=== PATIENT | female | born 1975 | race Caucasian/White ===

== ENCOUNTER 2016-08-09 07:36 | Outpatient (RCR) | payer OTHER ==
--- OUTSIDE RECORDS SUMMARY | 2016-08-06 14:04 | XMS REPORT | Continuity of Care Document ---
Author Author [facility] Organization [facility] Address Unknown Phone Unavailable Care Team Providers Care Seat Covers Trimmer Name Role Phone ALOK NAM MD PCP Insurance Providers Payer Name Policy Number Subscriber Name Relationship [facility] [id number] Eric Aguilera J 01 Advance Directives Directive Response Recorded Date/Time Advance Directives No 11/04/14 12:45pm Health Care Power of Qual Research Manager No 11/04/14 12:45pm Organ Donor Yes 11/04/14 12:45pm Resuscitation Status Full Code 11/04/14 12:45pm Problems Medical Problems Problem Onset Date Status Epigastric abdominal pain Unknown Active Gastric ulcer Unknown Active Epigastric abdominal pain Unknown Active Medications Medication Dose Route Sig Days/Qty Instructions Order Date Discontinued Date Status Ciprofloxacin 1 Tab PO TWICE A DAY 20 Qty FOR INFECTION 03/04/11 Discontinued Metronidazole 1 Each PO THREE TIMES A DAY 30 Qty 03/04/11 07/28/11 Discontinued Acetaminophen/Hydrocodone Bitart (Lorcet 5/325MG) 1 - 2 Tab PO EVERY 6 HOURS 10 Qty FOR PAIN 03/04/11 07/28/11 Discontinued Promethazine HCl 1 Supp IN FOUR TIMES DAILY PRN 5 Qty 03/04/11 Discontinued Ibuprofen 1,000 Mg PO DAILY 07/28/11 11/04/14 Discontinued Amoxicillin/Clavulanate Potassium 1 Tab PO TWICE A DAY 5 Days 10/29/11 03/10/12 Discontinued Acetaminophen/Hydrocodone Bitart 1 - 2 Each PO Q4HR PRN 10 Qty 03/10/12 Discontinued Tramadol Hcl 50 Mg PO DAILY 06/23/12 09/12/14 Discontinued Dm Hb/Pe/Acetaminophen/Chlorph 1 Each PO NEEDED 09/12/14 Discontinued Sucralfate 1 G PO EVERY 6 HOURS 120 Qty 09/12/14 Active [Zantac 150 Mg Po Bid] 150 Mg PO TWICE A DAY 11/04/14 11/04/14 Discontinued Pantoprazole Sod 40 Mg PO DAILY 30 Qty 11/04/14 Active Social History Social History Problem Response Recorded Date/Time Alcohol Use Rarely Uses 09/12/2014 8:12pm Recreational Drug Use No 09/12/2014 8:12pm Recent Foreign Travel No 11/04/2014 12:44pm Sexually Transmitted Disease No 09/12/2014 8:12pm Smoking Status Current Everyday Smoker 11/04/2014 12:40pm Do you dip or chew tobacco? No 11/04/2014 12:40pm Query Response Start Date Stop Date Smoking Status Current Everyday Smoker Hospital Discharge Instructions No hospital discharge instructions. Plan of Care No plan of care. Functional Status No functional status results. Allergies, Adverse Reactions, Alerts Allergen Type Severity Reaction Status Last Updated Clarithromycin Allergy Unknown HIVES Active 10/03/14 Immunizations No immunization records. Vital Signs Acute Vital Signs Vital Response Date/Time Temperature (Fahrenheit) 97.9 degrees F (97.6 - 99.5) Temperature (Calculated Celsius) 36.79526 degrees C (36.4 - 37.5) Temperature Source Tympanic Pulse Rate (adult) 88 bpm (60 - 90) Respiratory Rate 18 bpm (12 - 24) O2 Sat by Pulse Oximetry 100 % (88 - 100) Blood Pressure 124/72 mm Hg Pain Pain Intensity 0 Height (Feet) 5 feet Height (Inches) 6.00 inches Height (Calculated Centimeters) 167.625847 cm Weight (Pounds) 168 pounds Weight (Calculated Grams) 13029.519 gm Weight (Calculated Kilograms) 76.750045 kilograms Height 5 ft 6 in Weight 168 lb Body Mass Index 27.1 kg/m^2 Results No known relevant diagnostic tests, laboratory data and/or discharge summary. Procedures Procedure Status Date Provider(s) Esophagogastroduodenoscopy (EGD) with dilation completed 11/04/14 LISSA HENDERSON DO Anesthesia for 30 minutes completed 11/04/14 LISSA HENDERSON DO Encounters Encounter Location Date/Time Registered Surgical Day Care Via [facility] 11/04/14 11:56am Registered Clinic [facility] 11/03/14 5:57am
[2016-08-06 14:21] LABS: BILIRUBIN,URINE NEGATIVE (NEGATIVE); KETONES,URINE 1+ (NEGATIVE); LEUKOCYTE ESTERASE ,URINE NEGATIVE (NEGATIVE); NITRITE,URINE NEGATIVE (NEGATIVE); PH,URINE 6 (5-9); PROTEIN,URINE 1+ (NEGATIVE); UROBILINOGEN,URINE NORMAL (NORMAL)
[2016-08-06 14:22] LABS: BASOPHILS # (AUTO) 0.1 10^3/uL (0.0-0.1); BASOPHILS % (AUTO) 1 % (0-10); EOSINOPHILS # (AUTO) 0.1 10^3/uL (0.0-0.3); EOSINOPHILS % (AUTO) 1 % (0-10); LYMPHOCYTES # (AUTO) 2.3 X 10^3 (1.0-4.0); LYMPHOCYTES % (AUTO) 27 % (12-44); MEAN CORPUSCULAR HEMOGLOBIN 29 PG (25-34); MEAN CORPUSCULAR HGB CONC 34 G/DL (32-36); MEAN CORPUSCULAR VOLUME 85 FL (80-99); MEAN PLATELET VOLUME 9.9 FL (7.4-10.4); MONOCYTES # (AUTO) 0.6 X 10^3 (0.0-1.0); MONOCYTES % (AUTO) 7 % (0-12); NEUTROPHILS # (AUTO) 5.5 X 10^3 (1.8-7.8); NEUTROPHILS % (AUTO) 64 % (42-75); PLATELET COUNT 322 10^3/uL (130-400); RED BLOOD COUNT 4.61 10^6/uL (4.35-5.85); RED CELL DISTRIBUTION WIDTH 12.5 % (10.0-14.5); WHITE BLOOD COUNT 8.6 10^3/uL (4.3-11.0)
[2016-08-06 14:34] LABS: SQUAMOUS EPITHELIAL CELL,UR 25-50 /HPF
[2016-08-06 14:39] LABS: ALANINE AMINOTRANSFERASE 20 U/L (0-55); ALBUMIN 4.4 G/DL (3.2-4.5); AMYLASE 52 U/L (25-125); ANION GAP 14 MMOL/L (5-14); ASPARTATE AMINO TRANSFERASE 16 U/L (5-34); BILIRUBIN,TOTAL 0.5 MG/DL (0.1-1.0); BLOOD UREA NITROGEN 10 MG/DL (7-18); BUN/CREATININE RATIO 12; CALCIUM 9.1 MG/DL (8.5-10.1); CARBON DIOXIDE 20 MMOL/L (21-32); CHLORIDE 107 MMOL/L (98-107); CREATININE SERUM 0.82 MG/DL (0.60-1.30); GFR ESTIMATED > 60; GLUCOSE 100 MG/DL (70-105); LIPASE 12 U/L (8-78); POTASSIUM 3.6 MMOL/L (3.6-5.0); SODIUM 141 MMOL/L (135-145); TOTAL PROTEIN 7.1 G/DL (6.4-8.2)
[~2016-08-09 07:36] MED LIST: ACHD5005 PO; AGM875T PO; CEPH500C PO; CPR500T PO; DM H1CAP4 PO; HYDR1TAB PO; IBUP-30 PO; METR500T PO; PANT40TA3 PO; PNT40TEC PO; PROM25SU10 PR; SUCR1TAB PO; SUCR1TAB36 PO; TRAM50TA2 PO; ZANTAC 150 MG PO
[2016-11-15] MEDS ORDERED: DEXL60CA PO (13:39)
== END 2016-11-04 | disposition home or self-care (01) ==
LOC: LAB 07:36
PROVIDERS: ATTEND Physician Assistant
DX: R10.12 Left upper quadrant pain (principal); R11.0 Nausea; R53.81 Other malaise; R19.7 Diarrhea, unspecified
CPT/HCPCS: 36415; 80053; 81000; 82150; 83690; 85025; 87045; 87046; 87177; 87324; 87449; 87493

== ENCOUNTER 2016-11-13 06:25 | Outpatient (CLI) | payer OTHER ==
[~2016-11-13] VITALS: Ht 167.6 cm; Wt 86.2 kg
--- OUTSIDE RECORDS SUMMARY | 2016-11-13 06:29 | XMS REPORT | Continuity of Care Document ---
Author Author [facility] Organization [facility] Address Unknown Phone Unavailable Care Team Providers Care Income Tax Return Preparer Name Role Phone ALOK NAM MD PCP Insurance Providers Payer Name Policy Number Subscriber Name Relationship [facility] [id number] Eric Aguilera J 01 Advance Directives Directive Response Recorded Date/Time Advance Directives No 11/04/14 12:45pm Health Care Power of Hosiery Knitter No 11/04/14 12:45pm Organ Donor Yes 11/04/14 [...] 03/04/11 07/28/11 Discontinued Promethazine HCl 1 Supp [place] FOUR TIMES DAILY PRN 5 Qty 03/04/11 [...] F (97.6 - 99.5) Temperature (Calculated Celsius) 36.40657 degrees C (36.4 - 37.5) Temperature Source Tympanic Pulse Rate (adult) 88 bpm (60 - 90) Respiratory Rate 18 bpm (12 - 24) O2 Sat by Pulse Oximetry 100 % (88 - 100) Blood Pressure 124/72 mm Hg Pain Pain Intensity 0 Height (Feet) 5 feet Height (Inches) 6.00 inches Height (Calculated Centimeters) 167.012281 cm Weight (Pounds) 168 pounds Weight (Calculated Grams) 01213.519 gm Weight (Calculated Kilograms) 76.403849 kilograms Height 5 ft 6 in Weight 168 lb Body Mass Index 27.1 kg/m^2 Results No known relevant diagnostic tests, laboratory data and/or discharge summary. Procedures Procedure Status Date Provider(s) Esophagogastroduodenoscopy (EGD) with dilation completed 11/04/14 LISSA HENDERSON DO Anesthesia for 30 minutes completed 11/04/14 LISSA HENDERSON DO Encounters Encounter Location Date/Time Registered Surgical Day Care [facility] 11/04/14 11:56am Registered Clinic [facility] 11/03/14 5:57am
== END 2016-11-13 11:01 ==
LOC: PREOP 06:25
PROVIDERS: ATTEND Surgery Pediatric Surgery
DX: Z01.818 Encounter for other preprocedural examination (principal); K22.70 Barrett's esophagus without dysplasia

== ENCOUNTER 2016-11-15 11:52 | Day surgery (SDC) | payer OTHER ==
[~2016-11-15] VITALS: Ht 167.6 cm; Wt 86.2 kg
[2016-11-15] MEDS ORDERED: NS IV 500 ML 500 ML ONE (11:56)
--- OUTSIDE RECORDS SUMMARY | 2016-11-15 11:56 | XMS REPORT | Continuity of Care Document ---
Author Author [facility] Organization [facility] Address Unknown Phone Unavailable Care Team Providers Care Diesel Powerplant Supervisor Name Role Phone ALOK NAM MD PCP Insurance Providers Payer Name Policy Number Subscriber Name Relationship [facility] [facility] [id number] Eric Aguilera J 01 Advance Directives Directive Response Recorded Date/Time Advance Directives No 11/04/14 12:45pm Health Care Power of Speech Clinician No 11/04/14 12:45pm Organ Donor Yes 11/04/14 [...] 03/04/11 07/28/11 Discontinued Promethazine HCl 1 Supp [place] FOUR TIMES DAILY PRN 5 Qty 03/04/11 [...] F (97.6 - 99.5) Temperature (Calculated Celsius) 36.75895 degrees C (36.4 - 37.5) Temperature Source Tympanic Pulse Rate (adult) 88 bpm (60 - 90) Respiratory Rate 18 bpm (12 - 24) O2 Sat by Pulse Oximetry 100 % (88 - 100) Blood Pressure 124/72 mm Hg Pain Pain Intensity 0 Height (Feet) 5 feet Height (Inches) 6.00 inches Height (Calculated Centimeters) 167.589052 cm Weight (Pounds) 168 pounds Weight (Calculated Grams) 21193.519 gm Weight (Calculated Kilograms) 76.505008 kilograms Height 5 ft 6 in Weight 168 lb Body Mass Index 27.1 kg/m^2 Results No known relevant diagnostic tests, laboratory data and/or discharge summary. Procedures Procedure Status Date Provider(s) Esophagogastroduodenoscopy (EGD) with dilation completed 11/04/14 LISSA HENDERSON DO Anesthesia for 30 minutes completed 11/04/14 LISSA HENDERSON DO Encounters Encounter Location Date/Time Registered Surgical Day Care [facility] 11/04/14 11:56am Registered Clinic [facility] 11/03/14 5:57am
--- OUTSIDE RECORDS SUMMARY | 2016-11-15 11:56 | XMS REPORT | Continuity of Care Document ---
Author Author [facility] Organization [facility] Address Unknown Phone Unavailable Care Team Providers Care Voting Machine Repairer Name Role Phone ALOK NAM MD PCP Insurance Providers Payer Name Policy Number Subscriber Name Relationship [facility] [facility] [id number] Eric Aguilera J 01 Advance Directives Directive Response Recorded Date/Time Advance Directives No 11/04/14 12:45pm Health Care Power of Superintendent Warehouse No 11/04/14 12:45pm Organ Donor Yes 11/04/14 [...] 03/04/11 07/28/11 Discontinued Promethazine HCl 1 Supp [place] FOUR TIMES DAILY PRN 5 Qty 03/04/11 [...] F (97.6 - 99.5) Temperature (Calculated Celsius) 36.17982 degrees C (36.4 - 37.5) Temperature Source Tympanic Pulse Rate (adult) 88 bpm (60 - 90) Respiratory Rate 18 bpm (12 - 24) O2 Sat by Pulse Oximetry 100 % (88 - 100) Blood Pressure 124/72 mm Hg Pain Pain Intensity 0 Height (Feet) 5 feet Height (Inches) 6.00 inches Height (Calculated Centimeters) 167.928874 cm Weight (Pounds) 168 pounds Weight (Calculated Grams) 17208.519 gm Weight (Calculated Kilograms) 76.110825 kilograms Height 5 ft 6 in Weight 168 lb Body Mass Index 27.1 kg/m^2 Results No known relevant diagnostic tests, laboratory data and/or discharge summary. Procedures Procedure Status Date Provider(s) Esophagogastroduodenoscopy (EGD) with dilation completed 11/04/14 LISSA HENDERSON DO Anesthesia for 30 minutes completed 11/04/14 LISSA HENDERSON DO Encounters Encounter Location Date/Time Registered Surgical Day Care [facility] 11/04/14 11:56am Registered Clinic [facility] 11/03/14 5:57am
--- NOTE | 2016-11-15 12:12 | Conscious Sedation/ASA ---
Conscious Sedation Pre-Proced Time Reviewed: 12:10 ASA Class: 2 Airway Mallampati Classification: ([place] appropriate class) I. II. III, IV Lungs Heart ASA score ASA 1: a normal healthy patient ASA 2: a patient with a mild systemic disease (mid diabetes, controlled hypertension, obesity ASA 3: a patient with a severe systemic disease that limits activity (angina , COPD, prior Myocardial infarction) ASA 4: a patient with an incapacitating disease that is a constant threat to life (CHF, renal failure) ASA 5: a moribund patient not expected to survive 24 hrs. (ruptured aneurysm) ASA 6: a declared brain patient whose organs are being harvested. For emergent operations, add the letter E after the classification Grade 2 Sedation Plan: Analgesia, Amnesia, Plan communicated to team members, Discussed options with patient/fam, Discussed risks with patient/fam Note The patient is an appropriate candidate to undergo the planned procedure, sedation, and anesthesia. The patient immediately re-assessed prior to indication. LILIA MICHELLE MD Nov 15, 2016 12:12 pm
--- NOTE | 2016-11-15 12:13 | Progress Note-Pre Operative ---
Pre-Operative Progress Note H&P Reviewed The H&P was reviewed, patient examined and no changes noted. Date H&P Reviewed: Nov 15, 2016 Time H&P Reviewed: 12:10 Pre-Operative Diagnosis: hx Mooney's esophagus LILIA MICHELLE MD Nov 15, 2016 12:13 pm
[2016-11-15] MEDS ORDERED: morphine INJ 10 MG/ML 1ML (SYR OR VIAL) IV PRN (12:15)
[2016-11-15] MEDS ORDERED: ONDANSETRON 4 MG/2 ML (SDV) Z0FRAN IV PRN (12:15)
[2016-11-15] MEDS ORDERED: ACETAMINOPHEN 325 MG TABLET/CAPLET (TYLENOL) PO PRN (12:15)
[2016-11-15] MEDS ORDERED: HYDROcodone/APAP 5 MG/325 MG (LORTAB) TAB PO PRN (12:15)
[2016-11-15] MEDS ORDERED: NS IV 500 ML 500 ML IV PRN (12:20)
[2016-11-15] MEDS ORDERED: LIDOCAINE JELLY 2% (XYLOCAINE) 5 ML TUBE MM PRN (12:30)
[2016-11-15] MEDS ORDERED: HURRICAINE EXT TUBE (BENZOCAINE) XX PRN (12:30)
[2016-11-15] MEDS ORDERED: NALOXONE 0.4 MG/ML 1 ML (NARCAN) VIAL IVP PRN (12:30)
[2016-11-15] MEDS ORDERED: FLUMAZENIL (ROMAZICON) 0.1 MG/ML 5 ML VIAL INJ PRN (12:30)
[2016-11-15 12:53] VITALS: BP 124/88
[2016-11-15] MEDS: fentaNYL INJECTION 100 MCG/2 ML AMP IVP PRN ×2 (12:57→12:59)
[2016-11-15] MEDS: MIDAZOLAM 2 MG/2 ML (VERSED) VIAL IVP PRN ×7 (12:58→13:12)
[2016-11-15] MEDS ORDERED: PROPOFOL INJECTION 50 ML IV ONE (13:13)
--- NOTE | 2016-11-15 13:38 | Progress Note-Post Operative ---
Post-Operative Progess Note Pre-Operative Diagnosis hx Mooney's esophagus Post-Operative Diagnosis reflux esophagitis(B), small HH(1.5cm), mild-moderate gastritis. Post-Op Procedure Note Date of Procedure: Nov 15, 2016 Name of Procedure: EGD with bx. Anesthesia Type MAC per anesthesia Estimated blood loss (mL): minimal Specimen(s) collected GE jxn, antrum LILIA MICHELLE MD Nov 15, 2016 1:38 pm
[2016-11-15] MEDS ORDERED: DEXL60CA PO (13:39)
--- NOTE | 2016-11-15 13:40 | Discharge Inst-Surgical ---
D/C Lap Instructions-KIDO New, Converted, or Re-Newed RX: RX on Chart Follow Up 5 years Activity as tolerated High Fiber Diet 25g or more per day Avoid Alcohol, Caffeine, Spicy [place] and Acid foods. Drink 64 fluid oz or more of fluids per day. Symptoms to Report: Fever over 101 degree F, Nausea/Vomiting If any problems/questions: Contact your physician or go to Emergency Room LILIA MICHELLE MD Nov 15, 2016 1:40 pm
[2016-11-15 13:50] VITALS: BP 120/72
[2016-11-15 14:15] VITALS: BP 119/86
[2016-11-15 14:20] VITALS: BP 119/86
--- NOTE | 2016-11-16 22:11 | OPERATIVE REPORT ---
PROCEDURE PHYSICIAN: LILIA RIVERA DATE OF PROCEDURE: 11/15/2016 ATTENDING PRIMARY CARE PHYSICIAN: Dr. Ventura Gordillo. PREOPERATIVE DIAGNOSIS: History of Mooney's esophagus with recurrent gastroesophageal reflux disease. POSTOPERATIVE DIAGNOSES: 1. Reflux esophagitis, class B. 2. Small hiatal hernia, approximately 1 to 1.5 cm in size. 3. Mild gastritis. PROCEDURE: EGD with biopsy. SURGEON: Dr. Rivera. ANESTHESIA: Monitored anesthesia care. ESTIMATED BLOOD LOSS: Minimal. FINDINGS: 1. Chronic, class B reflux esophagitis. 2. Hiatal hernia, approximately 1.5 cm in size. 3. Mild to moderate gastritis. 4. The pylorus and duodenum appeared normal. DISPOSITION: The patient tolerated the procedure well. Ms. Dori Rodriguez is a 41-year-old female known to us. She was initially seen December of 2015 for abdominal pain and peptic ulcer disease. She underwent an EGD and colonoscopy. EGD showed a reflux esophagitis, class B, as well as small hiatal hernia and a gastritis, as well as a small pyloric ulcer. The pathology of the GE junction did come back positive for Mooney's esophagus. Colonoscopy revealed hyperplastic polyp of the rectum x2 that were some both small and benign. She reports that she has had nausea as well as left upper abdominal quadrant pain, as well as reflux and regurgitation. She reports that she has also had a burning and substernal chest discomfort as well. This is despite taking Protonix, as well as Zantac daily. PROCEDURE: The patient was brought to the endoscopy suite, laid in left lateral decubitus position. After adequate IV pain and sedative medications and monitored anesthesia care, administered by anesthesia, the mouthpiece was applied. The endoscope was placed in the mouth visualizing the pharynx and hypopharyngeal region. The vocal cords, epiglottis and vallecula identified and appeared to be normal. The endoscope was then gently insufflated into the esophageal opening and the esophagus insufflated. The endoscope was then advanced through the first, second, and 3rd portions of the esophagus. At the level of the GE junction, a reflux esophagitis, class B identified. This did not look severe in nature. There were no ulcers or strictures identified. A biopsy was taken using forceps with visualization of good hemostasis. The endoscope was then easily advanced into the stomach and the endoscope retroflexed visualizing a small hiatal hernia, approximately 1.5 cm in size. There was a mild to moderate gastritis identified as well. There were no formal ulcers, polyps or any neoplasms identified. A biopsy was taken of the stomach antrum with forceps with visualization of good hemostasis. The endoscope was then advanced through the pylorus into the first and second portions of the duodenum, which appeared normal. The endoscope was then slowly withdrawn while taking a second look and suctioning of residual air with no additional findings. The patient tolerated the procedure well. We will have her continue with medical management with the necessary lifestyle and diet accommodation including, avoidance of caffeinated beverages, spicy, greasy and acidic foods. We will also recommend complete cessation from nicotine products. We will also recommend weight management strategies which may help with her reflux of stomach contents, as well as acid. We will also proceed with a trial of Dexilant 60 mg daily. Due to her history of Mooney's esophagus, as well as her age, she may be a candidate for a hiatal hernia repair, as well as an antireflux procedure if she does not improve with medical management alone. Job ID: [id number] Dictated Date: 11/15/2016 13:38:02 Grease And Tallow Pumper Date: 11/16/2016 22:03:18 / shivam
== END 2016-11-15 14:20 | disposition home or self-care (01) ==
LOC: SDC 11:52
PROVIDERS: ATTEND Surgery Pediatric Surgery
DX: K21.0 Gastro-esophageal reflux disease with esophagitis (principal); K44.9 Diaphragmatic hernia without obstruction or gangrene; K29.70 Gastritis, unspecified, without bleeding

== ENCOUNTER → 2017-02-06 | Outpatient (CLI) | payer OTHER ==
[~2017-02-06] MED LIST changes: +CATHETER FLUSH 10 ML SYR IV PRN; +DEXL60CA PO; +IOHEXOL 350 MG/ML 100 ML (OMNIPAQUE 350) VIAL IV ONE; +NS 100 ML (IVPB) BAG IV ONE
--- NOTE | 2017-02-06 15:58 | Diagnostic Imaging Report ---
PROCEDURE: CT chest with contrast only. TECHNIQUE: Multiple contiguous axial images were obtained through the chest after administration of intravenous contrast. INDICATION: Shoulder mass. CONTRAST: 75 mL of Omnipaque 350 is administered intravenously. FINDINGS: The area of palpable lump is marked in the right supraclavicular region. There is no mass or fluid collection or lymphadenopathy seen at the marked area in the supraclavicular region. Minimal prominent subcutaneous fat is perhaps present in the supraclavicular regions bilaterally. There is no axillary lymphadenopathy. The lungs demonstrate no significant consolidation, mass, or suspicious nodule. Minimal focal atelectasis or scarring in the inferior lingula is seen. Tiny calcified granuloma is suggested in the left lung base. There is no mediastinal or hilar lymphadenopathy. No mediastinal mass. The thoracic aorta is normal in caliber. The heart size is normal. Visualized sections of the upper abdomen appear unremarkable. Osseous structures appear grossly unremarkable. IMPRESSION: No significant abnormality. Dictated by: Dictated on workstation # [id number]
== END ==
LOC: RAD 13:24
PROVIDERS: ATTEND Internal Medicine
DX: R22.2 Localized swelling, mass and lump, trunk (principal)
CPT/HCPCS: 71260

== ENCOUNTER → 2017-10-15 | Outpatient (CLI) | payer OTHER ==
[~2017-10-15] MED LIST changes: -CATHETER FLUSH 10 ML SYR IV PRN; -IOHEXOL 350 MG/ML 100 ML (OMNIPAQUE 350) VIAL IV ONE; -NS 100 ML (IVPB) BAG IV ONE
--- NOTE | 2017-10-16 12:48 | Diagnostic Imaging Report ---
Bilateral screening mammogram 2D views with tomosynthesis The current study was also evaluated with a Computer Aided Detection (CAD) system. Indication: Screening. No current complaints stated on the questionnaire. COMPARISON: 10/11/2016. Findings: The breasts are composed of dense parenchyma which may decrease mammographic sensitivity. There is no mass, architectural distortion or suspicious of calcification. Scattered benign-appearing desiccation is are seen. Allowing for technique and positional differences, no suspicious change is seen. IMPRESSION: Dense breasts with no definite change. ACR BI-RADS Category 2: Benign findings. Result letter will be mailed to the patient. Note: At least 10% of breast cancer is not imaged by mammography. Dictated by: Dictated on workstation # [id number]
== END ==
LOC: RAD 11:06
PROVIDERS: ATTEND Obstetrics & Gynecology
DX: Z12.31 Encounter for screening mammogram for malignant neoplasm of breast (principal)
CPT/HCPCS: 77067

== ENCOUNTER → 2018-02-19 | Outpatient (CLI) | payer OTHER ==
--- NOTE | 2018-02-19 09:39 | Diagnostic Imaging Report ---
PROCEDURE: CT chest, abdomen, and pelvis without contrast. TECHNIQUE: Multiple contiguous axial images were obtained through the chest, abdomen, and pelvis without the use of intravenous contrast. INDICATION: Left upper quadrant abdominal pain and left chest pain. COMPARISON: Comparison is made with prior CT chest from 02/06/[address] abdomen and pelvis from 08/16/2016. FINDINGS: CT chest: No axillary lymphadenopathy is detected. Hilar and mediastinal evaluation is limited without intravenous contrast but no gross abnormality is seen. No pericardial or pleural fluid is identified. No parenchymal mass or infiltrate is seen. There is minimal scarring in the right middle lobe and lingula. Bony structures are unremarkable. IMPRESSION: Minimal bibasilar scarring or atelectasis. Noncontrast CT chest is otherwise unremarkable. CT abdomen and pelvis: The liver and gallbladder are unremarkable. The pancreas and spleen are unremarkable. No adrenal mass is detected. No renal calculi or hydronephrosis is seen. The aorta is non-aneurysmal. There is no free fluid in the abdomen. There is [id number]-[id number] amount of free fluid in the pelvis. This is similar to the CT study from July 2016. Bladder is decompressed. The uterus appears to be surgically absent. There does appear to be sigmoid diverticulosis but no evidence of acute diverticulitis. The bony structures are nonacute. IMPRESSION: There is some free fluid in the pelvis, perhaps owing to recent rupture of an ovarian cyst. No other significant abnormality is seen apart from uncomplicated sigmoid diverticulosis. Dictated by: Dictated on workstation # [id number]
== END ==
LOC: RAD 08:43
PROVIDERS: ATTEND Nurse Practitioner Family
DX: K57.30 Diverticulosis of large intestine without perforation or abscess without bleeding (principal); R07.9 Chest pain, unspecified; Z90.710 Acquired absence of both cervix and uterus
CPT/HCPCS: 71250; 74176

== ENCOUNTER 2018-05-22 05:35 | Outpatient (CLI) | payer OTHER ==
[~2018-05-22] VITALS: Ht 167.6 cm; Wt 86.2 kg
[2018-05-22] MEDS ORDERED: RANI-515 PO (12:35)
== END 2018-05-22 12:37 ==
LOC: PREOP 05:35
PROVIDERS: ATTEND Surgery
DX: Z01.818 Encounter for other preprocedural examination (principal)

== ENCOUNTER 2018-05-29 11:39 | Day surgery (SDC) | payer OTHER ==
[~2018-05-29] VITALS: Ht 167.6 cm; Wt 86.2 kg
[~2018-05-29 11:39] MED LIST changes: +RANI-515 PO
[2018-05-29 11:55] VITALS: BP 134/96
[2018-05-29] MEDS ORDERED: NS IV 500 ML 500 ML IV PRN (11:56)
[2018-05-29] MEDS ORDERED: LIDOCAINE JELLY 2% (XYLOCAINE) 5 ML TUBE MM PRN (12:00)
[2018-05-29] MEDS ORDERED: HURRICAINE EXT TUBE (BENZOCAINE) XX PRN (12:00)
[2018-05-29] MEDS ORDERED: NS IV 500 ML 500 ML ONE (12:05)
--- NOTE | 2018-05-29 12:11 | Conscious Sedation/ASA ---
Conscious Sedation Pre-Proced Time Reviewed: 12:00 ASA Class: 2 Airway Mallampati Classification: ([place] appropriate class) I. II. III, IV Lungs Heart ASA score ASA 1: a normal healthy patient ASA 2: a patient with a mild systemic disease (mid diabetes, controlled hypertension, obesity ASA 3: a patient with a severe systemic disease that limits activity (angina , COPD, prior Myocardial infarction) ASA 4: a patient with an incapacitating disease that is a constant threat to life (CHF, renal failure) ASA 5: a moribund patient not expected to survive 24 hrs. (ruptured aneurysm) ASA 6: a declared brain patient whose organs are being harvested. For emergent operations, add the letter E after the classification Grade 2 Sedation Plan: Analgesia, Amnesia, Plan communicated to team members, Discussed options with patient/fam, Discussed risks with patient/fam Note The patient is an appropriate candidate to undergo the planned procedure, sedation, and anesthesia. The patient immediately re-assessed prior to indication. LILIA MICHELLE MD May 29, 2018 12:11 pm
--- NOTE | 2018-05-29 12:11 | Progress Note-Pre Operative ---
Pre-Operative Progress Note H&P Reviewed The H&P was reviewed, patient examined and no changes noted. Date Seen by Provider: May 29, 2018 Time Seen by Provider: 12:00 Date H&P Reviewed: May 29, 2018 Time H&P Reviewed: 12:00 Pre-Operative Diagnosis: dysphagia LILIA MICHELLE MD May 29, 2018 12:11 pm
[2018-05-29] MEDS ORDERED: HYDROcodone/APAP 5 MG/325 MG (LORTAB) TAB PO PRN (12:15)
[2018-05-29] MEDS ORDERED: ONDANSETRON 4 MG/2 ML (SDV) Z0FRAN IV PRN (12:15)
[2018-05-29] MEDS ORDERED: ACETAMINOPHEN 325 MG TABLET PO PRN (12:15)
[2018-05-29] MEDS ORDERED: morphine INJ 10 MG/ML 1ML (SYR OR VIAL) IV PRN (12:15)
[2018-05-29] MEDS ORDERED: HURRICAINE EXT TUBE (BENZOCAINE) ONE (12:25)
[2018-05-29] MEDS ORDERED: MIDAZOLAM 2 MG/2 ML (VERSED) VIAL ONE ×4 (12:25→12:48)
[2018-05-29] MEDS ORDERED: fentaNYL INJECTION 100 MCG/2 ML AMP ONE (12:25)
[2018-05-29] MEDS ORDERED: LIDOCAINE JELLY 2% (XYLOCAINE) 5 ML TUBE ONE (12:26)
[2018-05-29] MEDS: fentaNYL INJECTION 100 MCG/2 ML AMP IVP PRN ×2 (12:38→12:48)
[2018-05-29] MEDS: MIDAZOLAM 2 MG/2 ML (VERSED) VIAL IVP PRN ×4 (12:40→12:55)
--- NOTE | 2018-05-29 13:15 | Progress Note-Post Operative ---
Post-Operative Progess Note Surgeon (s)/Mixer Foam Rubber (s) Surgeon LILIA MICHELLE MD Mixer Foam Rubber: none Pre-Operative Diagnosis dysphagia Post-Operative Diagnosis reflux esophagitis(class B-C), moderate HH(3.5cm), mild gastritis. Procedure & Operative Findings Date of Procedure 05/29/18 Procedure Performed/Findings EGD with bx and dilatation. Anesthesia Type CS Estimated Blood Loss Estimated blood loss (mL): minimal Specimens/Packing Specimens Removed GE jxn, antrum LILIA MICHELLE MD May 29, 2018 1:15 pm
--- NOTE | 2018-05-29 13:17 | Discharge Inst-Surgical ---
D/C Lap Instructions-VIVIANA Follow Up Appt in 2 weeks Activity as tolerated High Fiber Diet 25g or more per day Avoid Alcohol, Caffeine, Spicy [place] and Acid foods. Drink 64 fluid oz or more of fluids per day. Symptoms to Report: Fever over 101 degree F, Nausea/Vomiting If any problems/questions: Contact your physician or go to Emergency Room LILIA MICHELLE MD May 29, 2018 1:17 pm
[2018-05-29 13:30] VITALS: BP 119/73
[2018-05-29 14:00] VITALS: BP 117/81
[2018-05-29 14:10] VITALS: BP 117/81
--- NOTE | 2018-05-29 20:58 | OPERATIVE REPORT ---
DATE OF SERVICE: 05/29/2018 ATTENDING PRIMARY CARE PHYSICIAN: Dr. Gordillo. PREOPERATIVE DIAGNOSIS: Dysphagia with history of gastroesophageal reflux disease. POSTOPERATIVE DIAGNOSES: Reflux esophagitis between class B and C, moderate size hiatal hernia approximately 3 to 3.5 cm in size. Mild gastritis. PROCEDURE: EGD with biopsy and balloon dilatation. SURGEON: Lilia Michelle MD ANESTHESIA: Conscious sedation. ESTIMATED BLOOD LOSS: Minimal. FINDINGS: Reflux esophagitis between class B and C with a significant sized hiatal hernia approximately 3 to 3.5 cm in size. Mild gastritis. A balloon dilatation was performed and there was only mild resistance. DISPOSITION: The patient tolerated the procedure well. INDICATIONS: The patient is a 43-year-old female known to us. We had initially seen her in 12/2015 for epigastric pain as well as reflux. She underwent an EGD and colonoscopy at that time. The EGD showed a reflux esophagitis class B and a small hiatal hernia and a moderate gastritis as well as a small pyloric ulcer. Biopsy did come back positive for Mooney's esophagus. Colonoscopy revealed two small hyperplastic polyps of the rectum, 2 mm in size, which were benign hyperplastic polyps. She reports that she has had worsening reflux type of symptoms, which has progressed to dysphagia. She states that after taking in food, she does have epigastric pressure sensation followed by regurgitation. Sometimes that the food bolus will go down. She states that liquids most of time are okay. She does have risk factors including drinking caffeinated beverages, coffee. She also has a longstanding history of smoking; however, states that she is currently only using vaporized nicotine. DESCRIPTION OF PROCEDURE: The patient was brought to the endoscopy suite, laid in the left lateral decubitus position. After adequate IV pain and sedating medications and conscious sedation anesthesia, the mouthpiece was applied. The endoscope was placed in the mouth, visualizing the pharynx and hypopharyngeal region. Vocal cords, epiglottis and vallecula identified and appeared to be normal. The endoscope was then gently intubated in the esophageal opening and esophagus insufflated. The endoscope was then advanced to the first, second and third portion of the esophagus. At the level of the GE junction, a reflux esophagitis between class B and C identified. There was no obvious Schatzki's ring or obvious stricture identified. A biopsy was taken of the GE junction with forceps with visualization of good hemostasis. The endoscope was then advanced in the stomach and the endoscope retroflexed, visualizing a significant sized hiatal hernia, approximately 3 to 3.5 cm in size. There was a mild gastritis. There were no ulcers, polyps or any neoplasms. A biopsy was taken of the stomach antrum for H. pylori with visualization of good hemostasis. The endoscope was then advanced through the pylorus and the first and second portions of the duodenum, which appeared normal with no distal obstructions. The endoscope was then advanced. We then proceeded with dilatation of the lower esophagus for a possibility of achalasia or undetected stricture. A CRE fixedguidewire balloon was placed in the stomach and dilated to use 3 atmospheres of pressure with no resistance. We then proceeded to 4.5 atmospheres of pressure with no resistance. We then proceeded to 7 atmospheres of pressure or 18 mm in circumferential diameter with mild resistance and left this in place for approximately 60 seconds. The balloon was desufflated and removed. No mucosal tears were identified as well as no bleeding. The endoscope was then slowly withdrawn while taking a second look and suctioning of residual air with no additional findings. The patient tolerated the procedure well. More than likely, the root of her dysphagia is secondary to worsening hiatal hernia. She states that she has undergone esophageal manometry before and we will review those results. If she had weakened or abnormal waveform contractions, she still may be a candidate for repair of the hiatal hernia as well as a loose wrap which would include a Toupet 270 degree wrap or a Yeison 180 degree wrap. Both of these procedures would restore her diaphragmatic and esophageal anatomy and improve her symptoms. We will have followup in the office. Job ID: [id number] DocumentID: [id number] Dictated Date: 05/29/2018 13:14:48 Odd Job Worker Date: 05/29/2018 20:58:08 Dictated By: LILIA MICHELLE MD [facility]
--- OUTSIDE RECORDS SUMMARY | 2018-05-30 04:06 | XMS REPORT | Continuity of Care Document ---
Author Author [facility] Organization [facility] Address Unknown Phone Unavailable Allergies Active Description Code Type Severity Reaction Onset Reported/Identified Relationship to Patient Clinical Status Yes clarithromycin [id number] Drug Allergy Unknown HIVES 01/17/2016 Medications There is no data. Problems Date Dx Coded Attending Type Code Diagnosis Diagnosed By 08/16/2014 ALOK NAM MD Ot 785.1 PALPITATIONS 09/12/2014 GHISLAINE NEAL MD Ot 531.90 STOMACH ULCER NOS 09/12/2014 GHISLAINE NEAL MD Ot 789.06 ABDOMINAL PAIN, EPIGASTRIC 10/03/2014 Ot 785.1 10/03/2014 Ot 785.2 10/03/2014 Ot 785.1 11/04/2014 LISSA HENDERSON DO Ot 530.10 11/04/2014 LISSA HENDERSON DO Ot 535.50 11/04/2014 LISSA HENDERSON DO Ot 535.60 11/04/2014 LISSA HENDERSON DO Ot 553.3 11/30/2014 LISSA HENDERSON DO Ot 789.06 12/20/2014 LISSA HENDERSON DO Ot 789.06 02/15/2015 LISSA HENDERSON DO Ot V72.84 11/16/2015 Ot 785.1 11/16/2015 LISSA HENDERSON DO Ot V72.84 01/11/2016 CHON GOLDEN APRN Ot R10.11 01/16/2016 LILIA MICHELLE MD Ot Z01.818 ENCOUNTER FOR OTHER PREPROCEDURAL EXAMIN 01/17/2016 LILIA MICHELLE MD Ot Z01.818 01/17/2016 Ot 785.1 01/17/2016 Ot 785.2 01/17/2016 Ot 785.1 01/17/2016 LILIA MICHELLE MD Ot K21.0 GASTRO-ESOPHAGEAL REFLUX DISEASE WITH ES 01/17/2016 LILIA MICHELLE MD, Ot K25.9 GASTRIC ULCER, UNSP ACUTE OR CHRONIC, 01/17/2016 LILIA MICHELLE MD Ot K29.70 GASTRITIS, UNSPECIFIED, WITHOUT BLEEDING 01/17/2016 LILIA MICHELLE MD Ot K44.9 DIAPHRAGMATIC HERNIA WITHOUT OBSTRUCTION 01/17/2016 LILIA MICHELLE MD Ot K62.1 RECTAL POLYP 01/17/2016 LILIA MICHELLE MD Ot K64.1 SECOND DEGREE HEMORRHOIDS 01/17/2016 LILIA MICHELLE MD Ot Z12.11 ENCOUNTER FOR SCREENING FOR MALIGNANT NE 08/06/2016 Ot 785.1 PALPITATIONS 08/06/[facility]72.84 EXAM PRE-OPERATIVE NOS 08/06/2016 CHON GOLDEN FUEL CELL ENGINEER Ot R10.11 RIGHT UPPER QUADRANT PAIN 08/19/2016 DILIP MOHR Ot R10.11 RIGHT UPPER QUADRANT PAIN 08/19/2016 DILIP MOHR Ot R10.12 LEFT UPPER QUADRANT PAIN 08/19/2016 DILIP MOHR L Ot R19.7 DIARRHEA, UNSPECIFIED 08/21/2016 DILIP MOHR L Ot R10.11 RIGHT UPPER QUADRANT PAIN 08/21/2016 DILIP MOHR L Ot R10.12 LEFT UPPER QUADRANT PAIN 08/21/2016 DILIP MOHR L Ot R19.7 DIARRHEA, UNSPECIFIED 10/03/2016 Ot 785.1 PALPITATIONS 10/03/2016 [facility] Ot V72.84 EXAM PRE-OPERATIVE NOS 10/03/2016 CHON GOLDEN APRN Ot R10.11 RIGHT UPPER QUADRANT PAIN 10/03/2016 DILIP MOHR L Ot R10.12 LEFT UPPER QUADRANT PAIN 10/03/2016 DILIP MOHR L Ot R11.0 NAUSEA 10/03/2016 DILIP MOHR Ot R19.7 DIARRHEA, UNSPECIFIED 10/03/2016 DILIP MOHR L Ot R53.81 OTHER MALAISE 10/03/2016 DILIP MOHR L Ot R10.11 RIGHT UPPER QUADRANT PAIN 10/03/2016 DILIP MOHR L Ot R10.12 LEFT UPPER QUADRANT PAIN 10/03/2016 DILIP MOHR L Ot R19.7 DIARRHEA, UNSPECIFIED 10/08/2016 MEGHA LOZANO DO Ot N83.202 UNSPECIFIED OVARIAN CYST, LEFT SIDE 10/08/2016 BLAKE BETH, MEGHA Saha Ot N83.202 UNSPECIFIED OVARIAN CYST, LEFT SIDE 10/14/2016 MEGHA LOZANO DO Ot N94.89 OTH COND ASSOC W FEMALE GENITAL ORGANS A 10/14/2016 MEGHA LOZANO DO Ot Z12.31 ENCNTR SCREEN MAMMOGRAM FOR MALIGNANT NE 10/17/2016 MEGHA LOZANO DO S Ot R92.8 OTH ABN AND INCONCLUSIVE FINDINGS ON DX 10/18/2016 MEGHA LOZANO DO Ot R92.8 OTH ABN AND INCONCLUSIVE FINDINGS ON DX 11/04/2016 DILIP MOHR Ot R10.12 LEFT UPPER QUADRANT PAIN 11/04/2016 DILIP MOHR Ot R11.0 NAUSEA 11/04/2016 DILIP MOHR Ot R19.7 DIARRHEA, UNSPECIFIED 11/04/2016 DILIP MOHR Ot R53.81 OTHER MALAISE 11/05/2016 DILIP MOHR L Ot R10.12 LEFT UPPER QUADRANT PAIN 11/05/2016 DILIP MOHR Ot R11.0 NAUSEA 11/05/2016 DILIP MOHR Ot R19.7 DIARRHEA, UNSPECIFIED 11/05/2016 DILIP MOHR L Ot R53.81 OTHER MALAISE 11/13/2016 LILIA MICHELLE MD Ot 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 11/13/2016 LILIA MICHELLE MD Ot Z01.818 ENCOUNTER FOR OTHER PREPROCEDURAL EXAMIN 11/15/2016 LILIA MICHELLE MD Ot K21.0 GASTRO-ESOPHAGEAL REFLUX DISEASE WITH ES 11/15/2016 LILIA MICHELLE MD Ot K29.70 GASTRITIS, UNSPECIFIED, WITHOUT BLEEDING 11/15/2016 LILIA MICHELLE MD, Ot K44.9 DIAPHRAGMATIC HERNIA WITHOUT OBSTRUCTION 11/18/2016 LILIA MICHELLE MD Ot K21.0 GASTRO-ESOPHAGEAL REFLUX DISEASE WITH ES 11/18/2016 LILIA MICHELLE MD Ot K29.70 GASTRITIS, UNSPECIFIED, WITHOUT BLEEDING 11/18/2016 LILIA MICHELLE MD Ot K44.9 DIAPHRAGMATIC HERNIA WITHOUT OBSTRUCTION 11/19/2016 LILIA MICHELLE MD Ot K21.0 GASTRO-ESOPHAGEAL REFLUX DISEASE WITH ES 11/19/2016 LILIA MICHELLE MD Ot K29.70 GASTRITIS, UNSPECIFIED, WITHOUT BLEEDING 11/19/2016 LILIA MICHELLE MD Ot K44.9 DIAPHRAGMATIC HERNIA WITHOUT OBSTRUCTION 11/21/2016 LILIA MICHELLE MD Ot K21.0 GASTRO-ESOPHAGEAL REFLUX DISEASE WITH ES 11/21/2016 LILIA MICHELLE MD Ot K29.70 GASTRITIS, UNSPECIFIED, WITHOUT BLEEDING 11/21/2016 VIVIANA FRANCISCO, LILIA Ot K44.9 DIAPHRAGMATIC HERNIA WITHOUT OBSTRUCTION 02/18/2018 Ot 785.1 PALPITATIONS 02/18/2018 LISSA HENDERSON DO Ot V72.84 EXAM PRE-OPERATIVE NOS 02/18/2018 CHON GOLDEN FUEL CELL ENGINEER Ot R10.11 RIGHT UPPER QUADRANT PAIN 02/18/2018 DILIP MOHR Ot R10.11 RIGHT UPPER QUADRANT PAIN 02/18/2018 DILIP MOHR Ot R10.12 LEFT UPPER QUADRANT PAIN 02/18/2018 DILIP MOHR Ot R19.7 DIARRHEA, UNSPECIFIED 02/18/2018 FENECH DO, MEGHA S Ot N83.202 UNSPECIFIED OVARIAN CYST, LEFT SIDE 02/18/2018 BLAKE BETH MEGHA S Ot N94.89 OTH COND ASSOC W FEMALE GENITAL ORGANS A 02/18/2018 MEGHA LOZANO DO S Ot Z12.31 ENCNTR SCREEN MAMMOGRAM FOR MALIGNANT NE 02/18/2018 MEGHA LOZANO DO S Ot R92.8 OTH ABN AND INCONCLUSIVE FINDINGS ON DX 02/18/2018 DILIP MOHR Ot R10.12 LEFT UPPER QUADRANT PAIN 02/18/2018 DILIP MOHR Ot R11.0 NAUSEA 02/18/2018 DILIP MOHR Ot R19.7 DIARRHEA, UNSPECIFIED 02/18/2018 DILIP MOHR Ot R53.81 OTHER MALAISE 02/18/2018 CYRIL FRANCISCO, ALOK Mishra Ot R22.2 LOCALIZED SWELLING, MASS AND LUMP, TRUNK 02/18/2018 FENMEGHA HASKINS DO S Ot Z12.31 ENCNTR SCREEN MAMMOGRAM FOR MALIGNANT NE 02/20/2018 SHERRI, STEPHANIE L FUEL CELL ENGINEER Ot K57.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/O PERFORATION OR AB 02/20/2018 SHERRI, STEPHANIE L FUEL CELL ENGINEER Ot R07.9 CHEST PAIN, UNSPECIFIED 02/20/2018 SHERRI, STEPHANIE L FUEL CELL ENGINEER Ot Z90.710 ACQUIRED ABSENCE OF BOTH CERVIX AND UTER 03/18/2018 SHERRI, STEPHANIE L FUEL CELL ENGINEER Ot K57.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/O PERFORATION OR AB 03/18/2018 SHERRI, STEPHANIE L FUEL CELL ENGINEER Ot R07.9 CHEST PAIN, UNSPECIFIED 03/18/2018 SHERRI, STEPHANIE L FUEL CELL ENGINEER Ot Z90.710 ACQUIRED ABSENCE OF BOTH CERVIX AND UTER 04/09/2018 Ot 785.1 PALPITATIONS 04/09/2018 LISSA HENDERSON DO Ot V72.84 EXAM PRE-OPERATIVE NOS 04/09/2018 CHON GOLDEN FUEL CELL ENGINEER Ot R10.11 RIGHT UPPER QUADRANT PAIN 04/09/2018 DILIP MOHR Ot R10.11 RIGHT UPPER QUADRANT PAIN 04/09/2018 DILIP MOHR Ot R10.12 LEFT UPPER QUADRANT PAIN 04/09/2018 DILIP MOHR Ot R19.7 DIARRHEA, UNSPECIFIED 04/09/2018 MEGHA LOZANO DO S Ot N83.202 UNSPECIFIED OVARIAN CYST, LEFT SIDE 04/09/2018 MEGHA LOZANO DO S Ot N94.89 OTH COND ASSOC W FEMALE GENITAL ORGANS A 04/09/2018 MEGHA LOZANO DO Ot Z12.31 ENCNTR SCREEN MAMMOGRAM FOR MALIGNANT NE 04/09/2018 MEGHA LOZANO DO S Ot R92.8 OTH ABN AND INCONCLUSIVE FINDINGS ON DX 04/09/2018 DILIP MOHR Ot R10.12 LEFT UPPER QUADRANT PAIN 04/09/2018 DILIP MOHR Ot R11.0 NAUSEA 04/09/2018 DILIP MOHR Ot R19.7 DIARRHEA, UNSPECIFIED 04/09/2018 DILIP MOHR Ot R53.81 OTHER MALAISE 04/09/2018 ALOK NAM MD Ot R22.2 LOCALIZED SWELLING, MASS AND LUMP, TRUNK 04/09/2018 MEGHA LOZANO DO S Ot Z12.31 ENCNTR SCREEN MAMMOGRAM FOR MALIGNANT NE 04/09/2018 STEPHANIE POLANCO L FUEL CELL ENGINEER Ot K57.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/O PERFORATION OR AB 04/09/2018 STEPHANIE POLANCO FUEL CELL ENGINEER Ot R07.9 CHEST PAIN, UNSPECIFIED 04/09/2018 STEPHANIE POLANCO FUEL CELL ENGINEER Ot Z90.710 ACQUIRED ABSENCE OF BOTH CERVIX AND UTER Procedures There is no data. Results Test Result Range Complete blood count (CBC) with automated white blood cell (WBC) differential - 08/06/16 14:04 Blood leukocytes automated count (number/volume) 8.6 10*3/uL 4.3-11.0 Blood erythrocytes automated count (number/volume) 4.61 10*6/uL 4.35-5.85 Venous blood hemoglobin measurement (mass/volume) 13.5 g/dL 11.5-16.0 Blood hematocrit (volume fraction) 39 % 35-52 Automated erythrocyte mean corpuscular volume 85 [foz_us] 80-99 Automated erythrocyte mean corpuscular hemoglobin (mass per erythrocyte) 29 pg 25-34 Automated erythrocyte mean corpuscular hemoglobin concentration measurement ( mass/volume) 34 g/dL 32-36 Automated erythrocyte distribution width ratio 12.5 % 10.0-14.5 Automated blood platelet count (count/volume) 322 10*3/uL 130-400 Automated blood platelet mean volume measurement 9.9 [foz_us] 7.4-10.4 Automated blood neutrophils/100 leukocytes 64 % 42-75 Automated blood lymphocytes/100 leukocytes 27 % 12-44 Blood monocytes/100 leukocytes 7 % 0-12 Automated blood eosinophils/100 leukocytes 1 % 0-10 Automated blood basophils/100 leukocytes 1 % 0-10 Blood neutrophils automated count (number/volume) 5.5 10*3 1.8-7.8 Blood lymphocytes automated count (number/volume) 2.3 10*3 1.0-4.0 Blood monocytes automated count (number/volume) 0.6 10*3 0.0-1.0 Automated eosinophil count 0.1 10*3/uL 0.0-0.3 Automated blood basophil count (count/volume) 0.1 10*3/uL 0.0-0.1 Complete urinalysis with reflex to culture - 08/06/16 14:04 Urine color determination YELLOW NRG Urine clarity determination SLIGHTLY CLOUDY NRG Urine pH measurement by test strip 6 5-9 Specific gravity of urine by test strip 1.025 1.016- 1.022 Urine protein assay by test strip, semi-quantitative 1+ NEGATIVE Urine glucose detection by automated test strip NEGATIVE NEGATIVE Erythrocytes detection in urine sediment by light microscopy 4+ NEGATIVE Urine ketones detection by automated test strip 1+ NEGATIVE Urine nitrite detection by test strip NEGATIVE NEGATIVE Urine total bilirubin detection by test strip NEGATIVE NEGATIVE Urine urobilinogen measurement by automated test strip (mass/volume) NORMAL NORMAL Urine leukocyte esterase detection by dipstick NEGATIVE NEGATIVE Automated urine sediment erythrocyte count by microscopy (number/high power field) [HPF] NRG Automated urine sediment leukocyte count by microscopy (number/high power field ) NONE NRG Bacteria detection in urine sediment by light microscopy NEGATIVE NRG Squamous epithelial cells detection in urine sediment by light microscopy 25-50 NRG Crystals detection in urine sediment by light microscopy NONE NRG Casts detection in urine sediment by light microscopy NONE NRG Mucus detection in urine sediment by light microscopy NEGATIVE NRG Complete urinalysis with reflex to culture NO NRG Comprehensive metabolic panel - 08/06/16 14:04 Serum or plasma sodium measurement (moles/volume) 141 mmol/L 135-145 Serum or plasma potassium measurement (moles/volume) 3.6 mmol/L 3.6-5.0 Serum or plasma chloride measurement (moles/volume) 107 mmol/L 98-107 Carbon dioxide 20 mmol/L 21-32 Serum or plasma anion gap determination (moles/volume) 14 mmol/L 5-14 Serum or plasma urea nitrogen measurement (mass/volume) 10 mg/dL 7-18 Serum or plasma creatinine measurement (mass/volume) 0.82 mg/dL 0.60-1.30 Serum or plasma urea nitrogen/creatinine mass ratio 12 NRG Serum or plasma creatinine measurement with calculation of estimated glomerular filtration rate > NRG Serum or plasma glucose measurement (mass/volume) 100 mg/dL 70-105 Serum or plasma calcium measurement (mass/volume) 9.1 mg/dL 8.5-10.1 Serum or plasma total bilirubin measurement (mass/volume) 0.5 mg/dL 0.1-1.0 Serum or plasma alkaline phosphatase measurement (enzymatic activity/volume) 63 U/L 40-136 Serum or plasma aspartate aminotransferase measurement (enzymatic activity/ volume) 16 U/L 5-34 Serum or plasma alanine aminotransferase measurement (enzymatic activity/volume ) 20 U/L 0-55 Serum or plasma protein measurement (mass/volume) 7.1 g/dL 6.4-8.2 Serum or plasma albumin measurement (mass/volume) 4.4 g/dL 3.2-4.5 Serum or plasma amylase measurement (enzymatic activity/volume) - 08/06/16 14: 04 Serum or plasma amylase measurement (enzymatic activity/volume) 52 U /L 25-125 Lipase - 08/06/16 14:04 Lipase 12 U/L 8-78 C DIFFICILE AG + TOXIN A/B. - 08/09/16 06:00 RESULTS NEGATIVE FOR ANTIGEN AND TOXIN A/B NRG Clostridium difficile detection - 08/09/16 06:00 Clostridium difficile detection TNP NRG Stool bacteria identification by culture - 08/09/16 06:00 Ova and parasites - 08/09/16 06:00 OTP NEGATIVE RESULT PARASITES NOT FOUND NRG POS OP RESULT FTX RPTABLE 08/15/16 NRG Encounters ACCT No. Visit Date/Time Discharge Status Pt. Type Provider Facility Loc./Unit Complaint [id number] 05/22/2018 05:35:00 05/22/2018 23:59:59 CLS Outpatient LILIA MICHELLE MD [facility] PREOP EGD [id number] 02/19/2018 08:43:00 02/19/2018 23:59:59 CLS Outpatient STEPHANIE POLANCO FUEL CELL ENGINEER [facility] RAD LUQ ABD PAIN [id number] 10/15/2017 11:06:00 10/15/2017 23:59:59 CLS Outpatient MEGHA LOZANO DO [facility] RAD SCREENING MAMMO [id number] 02/06/2017 13:24:00 02/06/2017 23:59:59 CLS Outpatient ALOK NAM MD [facility] RAD L SHOULDER MASS ENLARGED R SUPRACLAVICULAR LYMPH [id number] 11/15/2016 11:52:00 11/15/2016 14:20:00 DIS Outpatient LILIA MICHELLE MD [facility] HISTORY OF [place] [id number] 11/13/2016 06:25:00 11/13/2016 11:01:00 DIS Outpatient LILIA MICHELLE MD [facility] PREOP HISTORY OF [place] [id number] 11/05/2016 00:10:00 11/05/2016 23:59:59 CLS Preadmit DILIP MOHR [facility] LAB LUQ PAIN,NAUSEA,DIARRHEA [id number] 08/09/2016 07:36:00 11/04/2016 00:01:00 DIS Outpatient DILIP MOHR [facility] LAB LUQ PAIN,NAUSEA, DIARRHEA [id number] 10/17/2016 08:18:00 10/17/2016 23:59:59 CLS Outpatient MEGHA LOZANO DO [facility] RAD ABNORMAL MAMMO [id number] 10/11/2016 15:08:00 10/11/2016 23:59:59 CLS Outpatient MEGHA LOZANO DO [facility] RAD PELVIC MASS IN FEMALE ,MAMMO SCREENING [id number] 10/03/2016 13:04:00 10/03/2016 23:59:59 CLS Outpatient MEGHA LOZANO DO [facility] RAD LT OVARIAN CYST [id number] 08/16/2016 09:24:00 08/16/2016 23:59:59 CLS Outpatient DILIP MOHR [facility] RAD DIARRHEA,BUQ ABD PAIN [id number] 01/17/2016 09:16:00 01/17/2016 13:50:00 DIS Outpatient LILIA MICHELLE MD [facility] SDC SCREENING; EPIGASTRIC PAIN [id number] 01/16/2016 05:53:00 01/16/2016 12:57:00 DIS Outpatient LILIA MICHELLE MD [facility] PREOP SCREENING; EPIGASTRIC PAIN [id number] 11/16/2015 07:41:00 11/16/2015 23:59:59 CLS Outpatient HCON GOLDEN APRN [facility] RAD RIGHT UPPER QUAD PAIN [id number] 07/15/2015 16:26:00 07/15/2015 23:59:59 CLS Outpatient YAKOV SALCIDO [facility] QUICK [id number] 11/28/2014 06:47:00 11/28/2014 23:59:59 CLS Outpatient LISSA HENDERSON DO [facility] RAD [id number] 11/04/2014 11:56:00 11/04/2014 15:05:00 DIS Outpatient LISSA HENDERSON DO [facility] SDC [id number] 11/03/2014 05:57:00 11/03/2014 23:59:59 CLS Outpatient LISSA HENDERSON DO [facility] PREOP HX ULCERS [id number] 09/12/2014 20:08:00 09/12/2014 22:50:00 DIS Emergency GHISLAINE NEAL MD [facility] ER ABD PAIN [id number] 05/18/2014 08:13:00 08/16/2014 00:01:00 DIS Outpatient ALOK NAM MD [facility] CARD PALPITATIONS [id number] 04/20/2014 16:01:00 04/20/2014 23:59:59 CLS Outpatient [id number] 03/04/2013 12:03:00 03/04/2013 23:59:59 CLS Outpatient [id number] 05/29/2018 12:45:00 PEN Preadmit LILIA MICHELLE MD [facility] ENDO DYSPHAGIA [id number] 08/17/2014 08:00:00 Document Registration [id number] 09/10/2012 09:00:00 Document Registration
== END 2018-05-29 14:05 | disposition home or self-care (01) ==
LOC: ENDO 11:39
PROVIDERS: ATTEND Surgery
DX: K21.0 Gastro-esophageal reflux disease with esophagitis (principal); K44.9 Diaphragmatic hernia without obstruction or gangrene; K29.70 Gastritis, unspecified, without bleeding; Z87.891 Personal history of nicotine dependence

== ENCOUNTER 2018-06-15 05:51 | Outpatient (CLI) | payer OTHER ==
[~2018-06-15] VITALS: Ht 167.6 cm; Wt 86.2 kg
[2018-06-15] MEDS ORDERED: NIFE10CA44 PO (10:05)
== END 2018-06-15 10:08 | disposition home or self-care (01) ==
LOC: PREOP 05:51
PROVIDERS: ATTEND Surgery
DX: Z01.818 Encounter for other preprocedural examination (principal)

== ENCOUNTER → 2018-07-21 | Outpatient (CLI) | payer OTHER ==
[~2018-07-21] MED LIST changes: +NIFE10CA44 PO
--- NOTE | 2018-07-21 16:03 | Diagnostic Imaging Report ---
INDICATION: Chronic back pain. TECHNIQUE: AP, Lateral imaging of the thoracic spine CORRELATION STUDY: None FINDINGS: Very mild S-type scoliotic curvature of thoracic spine apex left superiorly and inferiorly to the right. Very slight accentuated kyphotic curvature. Multilevel disc space narrowing with minimal endplate lipping. This appears slightly more pronounced at the inferior thoracic disc levels. Vertebral body heights are otherwise maintained without evidence for acute-appearing compression deformity. IMPRESSION: Very mild S-type thoracic scoliotic curvature with mild degenerative changes of lower thoracic cervical spine. Dictated by: Dictated on workstation # [id number]
--- NOTE | 2018-07-21 16:07 | Diagnostic Imaging Report ---
INDICATION: Chronic back pain. TECHNIQUE: AP, Lateral and Spot imaging of the lumbar spine CORRELATION STUDY: None FINDINGS: There is some accentuated kyphotic curvature at the thoracolumbar junction. Lumbar lordotic curvature demonstrates minimal narrowing but otherwise maintained. Trace retrolisthesis of L3 on L4, L2 on L3. Minimal anterior wedging of anterior L1 vertebral body appearing nonacute. No significant scoliotic curvature. Intervertebral disc spaces demonstrate asymmetric narrowing at L1-L2 and T12-L1 levels. SI joints unremarkable. Moderate severity fecal retention within the colon. IMPRESSION: Slight accentuated kyphotic curvature at the thoracolumbar junction. No significant scoliotic curvature. Mild asymmetric disc space narrowing at the thoracolumbar junction. Dictated by: Dictated on workstation # [id number]
--- NOTE | 2018-07-21 17:56 | Diagnostic Imaging Report ---
INDICATION: Chronic neck pain. TECHNIQUE: AP, lateral and odontoid views cervical spine.. CORRELATION STUDY: None. FINDINGS: Slight straightening with loss of the cervical lordosis. Alignment is otherwise relatively anatomic. The head is slightly to the left with slight rightward curvature. There is mild diffuse disc space narrowing through majority of the levels of the cervical spine. Minimal reactive endplate osteophyte formation is suggested at C3-C4, C4-C5, C5-C6, and C6-C7 levels. Odontoid is unremarkable with lateral masses. C1-C2 is aligned. Prevertebral soft tissues are unremarkable. IMPRESSION: 1. Mild multilevel disc space narrowing of the cervical spine. Slight loss of the normal lordotic curvature. Dictated by: Dictated on workstation # [id number]
== END ==
LOC: RAD 14:37
PROVIDERS: ATTEND Nurse Practitioner
DX: M50.30 Other cervical disc degeneration, unspecified cervical region (principal); M51.35 Other intervertebral disc degeneration, thoracolumbar region; M41.84 Other forms of scoliosis, thoracic region; M47.813 Spondylosis without myelopathy or radiculopathy, cervicothoracic region
CPT/HCPCS: 72040; 72070; 72100

== ENCOUNTER 2018-08-04 10:33 | Outpatient (CLI) | payer OTHER ==
[~2018-08-04] VITALS: Ht 167.6 cm; Wt 86.2 kg
[2018-08-04] MEDS ORDERED: DEXL60CA PO (10:53)
== END 2018-08-04 10:56 | disposition home or self-care (01) ==
LOC: PREOP 10:33
PROVIDERS: ATTEND Surgery
DX: Z01.818 Encounter for other preprocedural examination (principal)

== ENCOUNTER 2018-08-05 10:50 | Day surgery (SDC) | payer OTHER ==
[~2018-08-05] VITALS: Ht 167.6 cm; Wt 86.2 kg
--- OUTSIDE RECORDS SUMMARY | 2018-08-05 10:55 | XMS REPORT | Continuity of Care Document ---
Author Author [facility] Organization [facility] Address Unknown Phone Unavailable Allergies Active Description Code Type Severity Reaction Onset Reported/Identified Relationship to Patient Clinical Status Yes clarithromycin [id number] Drug Allergy Unknown HIVES 06/17/2018 Yes nifedipine [id number] Drug Allergy Moderate RASH 06/17/2018 Medications There is no data. Problems Date [...] K21.0 GASTRO-ESOPHAGEAL REFLUX DISEASE WITH ES 01/17/2016 VIVIANA FRANCISCO, LILIA Ot K25.9 GASTRIC ULCER, UNSP ACUTE OR CHRONIC, 01/17/2016 LILIA MICHELLE MD Ot K29.70 GASTRITIS, UNSPECIFIED, WITHOUT BLEEDING 01/17/2016 LILIA MICHELLE MD Ot K44.9 DIAPHRAGMATIC HERNIA WITHOUT OBSTRUCTION 01/17/2016 LILIA MICHELLE MD Ot K62.1 RECTAL POLYP 01/17/2016 LILIA MICHELLE MD Ot K64.1 SECOND DEGREE HEMORRHOIDS 01/17/2016 LILIA MICHELLE MD Ot Z12.11 ENCOUNTER FOR SCREENING FOR MALIGNANT NE 08/06/2016 Ot 785.1 PALPITATIONS 08/06/2016 LISSA HENDERSON DO Ot V72.84 EXAM PRE-OPERATIVE NOS 08/06/2016 CHON GOLDEN LEAD ENTERPRISE ARCHITECT Ot R10.11 RIGHT UPPER QUADRANT PAIN 08/19/2016 DILIP MOHR L Ot R10.11 RIGHT UPPER QUADRANT PAIN 08/19/2016 DILIP MOHR L Ot R10.12 LEFT UPPER QUADRANT PAIN 08/19/2016 NUSRAT MOHREN L Ot R19.7 DIARRHEA, UNSPECIFIED 08/21/2016 DILIP MOHR L Ot R10.11 RIGHT UPPER QUADRANT PAIN 08/21/2016 DILIP MOHR L Ot R10.12 LEFT UPPER QUADRANT PAIN 08/21/2016 NUSRAT MOHREN L Ot R19.7 DIARRHEA, UNSPECIFIED 10/03/2016 Ot 785.1 PALPITATIONS 10/03/2016 LISSA HENDERSON DO Ot V72.84 EXAM PRE-OPERATIVE NOS 10/03/2016 CHON GOLDEN LEAD ENTERPRISE ARCHITECT Ot R10.11 RIGHT UPPER QUADRANT PAIN 10/03/2016 NUSRAT MOHREN L Ot R10.12 LEFT UPPER QUADRANT PAIN 10/03/2016 DILIP MOHR L Ot R11.0 NAUSEA 10/03/2016 DILIP MOHR L Ot R19.7 DIARRHEA, UNSPECIFIED 10/03/2016 NUSRAT MOHREN L Ot R53.81 OTHER MALAISE 10/03/2016 NUSRAT MOHREN L Ot R10.11 RIGHT UPPER QUADRANT PAIN 10/03/2016 DILIP MOHR L Ot R10.12 LEFT UPPER QUADRANT PAIN 10/03/2016 DILIP MOHR Ot R19.7 DIARRHEA, UNSPECIFIED 10/08/2016 BLAKE BETH, MEGHA S Ot N83.202 UNSPECIFIED OVARIAN CYST, LEFT SIDE 10/08/2016 BLAKE BETH, MEGHA S Ot N83.202 UNSPECIFIED OVARIAN CYST, LEFT SIDE 10/14/2016 BLAKE BETH, MEGHA S Ot N94.89 OTH COND ASSOC W FEMALE GENITAL ORGANS A 10/14/2016 MEGHA LOZANO DO S Ot Z12.31 ENCNTR SCREEN MAMMOGRAM FOR MALIGNANT NE 10/17/2016 BLAKE BETH, MEGHA S Ot R92.8 OTH ABN AND INCONCLUSIVE FINDINGS ON DX 10/18/2016 BLAKE BETH, MEGHA S Ot R92.8 OTH ABN AND INCONCLUSIVE FINDINGS ON DX 11/04/2016 DILIP MOHR Ot R10.12 LEFT UPPER QUADRANT PAIN 11/04/2016 DILIP MOHR Ot R11.0 NAUSEA 11/04/2016 DILIP MOHR Ot R19.7 DIARRHEA, UNSPECIFIED 11/04/2016 DILIP MOHR L Ot R53.81 OTHER MALAISE 11/05/2016 DILIP MOHR [...] REFLUX DISEASE WITH ES 11/15/2016 LILIA MICHELLE MD, Ot K29.70 GASTRITIS, UNSPECIFIED, WITHOUT BLEEDING 11/15/2016 LILIA MICHELLE MD Ot K44.9 DIAPHRAGMATIC HERNIA WITHOUT OBSTRUCTION 11/18/2016 LILIA MICHELLE MD Ot K21.0 GASTRO-ESOPHAGEAL REFLUX DISEASE WITH ES 11/18/2016 LILIA MICHELLE MD, Ot K29.70 GASTRITIS, UNSPECIFIED, WITHOUT BLEEDING 11/18/2016 [...] Ot K29.70 GASTRITIS, UNSPECIFIED, WITHOUT BLEEDING 11/21/2016 LILIA MICHELLE MD, Ot K44.9 DIAPHRAGMATIC HERNIA WITHOUT OBSTRUCTION 02/18/2018 Ot 785.1 PALPITATIONS 02/18/2018 LISSA HENDERSON DO Ot V72.84 EXAM PRE-OPERATIVE NOS 02/18/2018 CHON GOLDEN LEAD ENTERPRISE ARCHITECT Ot R10.11 RIGHT UPPER QUADRANT PAIN 02/18/2018 DILIP MOHR Ot R10.11 RIGHT UPPER QUADRANT PAIN 02/18/2018 DILIP MOHR Ot R10.12 LEFT UPPER QUADRANT PAIN 02/18/2018 DILIP MOHR Ot R19.7 DIARRHEA, UNSPECIFIED 02/18/2018 MEGHA LOZANO DO Ot N83.202 UNSPECIFIED OVARIAN CYST, LEFT SIDE 02/18/2018 MEGHA LOZANO DO Ot N94.89 OTH COND ASSOC W FEMALE GENITAL ORGANS A 02/18/2018 MEGHA LOZANO DO Ot Z12.31 ENCNTR SCREEN MAMMOGRAM FOR MALIGNANT NE 02/18/2018 MEGHA LOZANO DO Ot R92.8 OTH ABN AND INCONCLUSIVE FINDINGS ON DX 02/18/2018 DILIP MOHR Ot R10.12 LEFT UPPER QUADRANT PAIN 02/18/2018 DILIP MOHR Ot R11.0 NAUSEA 02/18/2018 DILIP MOHR Ot R19.7 DIARRHEA, UNSPECIFIED 02/18/2018 DILIP MOHR Ot R53.81 OTHER MALAISE 02/18/2018 CYRIL FRANCISCO, ALOK Mishra Ot R22.2 LOCALIZED SWELLING, MASS AND LUMP, TRUNK 02/18/2018 MEGHA LOZANO DO S Ot Z12.31 ENCNTR SCREEN MAMMOGRAM FOR MALIGNANT NE 02/20/2018 STEPHANIE POLANCO LEAD ENTERPRISE ARCHITECT Ot K57.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/O PERFORATION OR AB 02/20/2018 SHERRITHO MORANIN L LEAD ENTERPRISE ARCHITECT Ot R07.9 CHEST PAIN, UNSPECIFIED 02/20/2018 SHERRITHO MORANIN L LEAD ENTERPRISE ARCHITECT Ot Z90.710 ACQUIRED ABSENCE OF BOTH CERVIX AND UTER 03/18/2018 SHERRITHO MORANIN L LEAD ENTERPRISE ARCHITECT Ot K57.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/O PERFORATION OR AB 03/18/2018 SHERRITHO MORANIN L LEAD ENTERPRISE ARCHITECT Ot R07.9 CHEST PAIN, UNSPECIFIED 03/18/2018 SHERRITHO MORANIN L LEAD ENTERPRISE ARCHITECT Ot Z90.710 ACQUIRED ABSENCE OF BOTH CERVIX AND UTER 04/09/2018 Ot 785.1 PALPITATIONS 04/09/2018 LISSA HENDERSON DO Ot V72.84 EXAM PRE-OPERATIVE NOS 04/09/2018 CHON GOLDEN LEAD ENTERPRISE ARCHITECT Ot R10.11 RIGHT UPPER QUADRANT PAIN 04/09/2018 [...] DILIP MOHR Ot R53.81 OTHER MALAISE 04/09/2018 CYRIL FRANCISCO, ALOK Mishra Ot R22.2 LOCALIZED SWELLING, MASS AND LUMP, TRUNK 04/09/2018 MEGHA LOZANO DO S Ot Z12.31 ENCNTR SCREEN MAMMOGRAM FOR MALIGNANT NE 04/09/2018 SHERRISTEPHANIE LEAD ENTERPRISE ARCHITECT Ot K57.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/O PERFORATION OR AB 04/09/2018 SHERRISTEPHANIE Nai LEAD ENTERPRISE ARCHITECT Ot R07.9 CHEST PAIN, UNSPECIFIED 04/09/2018 STEPHANIE POLANCO L LEAD ENTERPRISE ARCHITECT Ot Z90.710 ACQUIRED ABSENCE OF BOTH CERVIX AND UTER 05/25/2018 LILIA MICHELLE MD Ot Z01.818 ENCOUNTER FOR OTHER PREPROCEDURAL EXAMIN 06/15/2018 LILIA MICHELLE MD, Ot Z01.818 ENCOUNTER FOR OTHER PREPROCEDURAL EXAMIN 06/17/2018 LILIA MICHELLE MD, Ot K21.0 GASTRO-ESOPHAGEAL REFLUX DISEASE WITH ES 06/17/2018 LILIA MICHELLE MD, Ot K22.0 ACHALASIA OF CARDIA 06/17/2018 LILIA MICHELLE MD, Ot K44.9 DIAPHRAGMATIC HERNIA WITHOUT OBSTRUCTION 06/17/2018 LILIA MICHELLE MD, Ot Z80.0 FAMILY HISTORY OF MALIGNANT NEOPLASM OF 06/17/2018 LILIA MICHELLE MD, Ot Z80.1 FAMILY HISTORY OF MALIG NEOPLASM OF TRAC 06/19/2018 LILIA MICHELLE MD, Ot K21.0 GASTRO-ESOPHAGEAL REFLUX DISEASE WITH ES 06/19/2018 LILIA MICHELLE MD, Ot K22.0 ACHALASIA OF CARDIA 06/19/2018 LILIA MICHELLE MD, Ot K44.9 DIAPHRAGMATIC HERNIA WITHOUT OBSTRUCTION 06/19/2018 LILIA MICHELLE MD, Ot Z80.0 FAMILY HISTORY OF MALIGNANT NEOPLASM OF 06/19/2018 LILIA MICHELLE MD, Ot Z80.1 FAMILY HISTORY OF MALIG NEOPLASM OF TRAC 06/23/2018 LILIA MICHELLE MD, Ot K21.0 GASTRO-ESOPHAGEAL REFLUX DISEASE WITH ES 06/23/2018 LILIA MICHELLE MD, Ot K22.0 ACHALASIA OF CARDIA 06/23/2018 LILIA MICHELLE MD, Ot K44.9 DIAPHRAGMATIC HERNIA WITHOUT OBSTRUCTION 06/23/2018 LILIA MICHELLE MD, Ot Z80.0 FAMILY HISTORY OF MALIGNANT NEOPLASM OF 06/23/2018 LILIA MICHELLE MD, Ot Z80.1 FAMILY HISTORY OF MALIG NEOPLASM OF TRAC 07/22/2018 CHON GOLDEN LEAD ENTERPRISE ARCHITECT Ot M41.84 OTHER FORMS OF SCOLIOSIS, THORACIC REGIO 07/22/2018 VERONA GOLDENN R LEAD ENTERPRISE ARCHITECT Ot 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 07/22/2018 VERONA GOLDENJuan Alejo LEAD ENTERPRISE ARCHITECT Ot 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 Results Test [...] Status Pt. Type Provider Facility Loc./Unit Complaint [id number] 08/04/2018 10:33:00 08/04/2018 10:56:00 DIS Outpatient LILIA MICHELLE MD [facility] PREOP EGD [id number] 07/21/2018 14:37:00 07/21/2018 23:59:59 CLS Outpatient CHON GOLDEN APRN [facility] RAD SCOLIOSIS,BACK PAIN, CHRONIC NECK PAIN,HEADACHES [id number] 06/17/2018 09:36:00 06/17/2018 23:59:59 CLS Outpatient LILIA MICHELLE MD [facility] ENDO DYSPHAGIA/ACHOLASIA REFLUX [id number] 06/15/2018 05:51:00 06/15/2018 10:08:00 DIS Outpatient LILIA MICHELLE MD [facility] PREOP EGD [id number] 05/29/2018 12:45:00 05/29/2018 23:59:59 CLS Preadmit LILIA MICHELLE MD [facility] ENDO DYSPHAGIA [id number] 05/22/2018 05:35:00 05/22/2018 12:37:00 DIS Outpatient LILIA MICHELLE MD [facility] PREOP EGD [id number] 02/19/2018 08:43:00 02/19/2018 23:59:59 CLS Outpatient STEPHANIE POLANCO APRN [facility] RAD LUQ ABD PAIN [id number] 10/15/2017 11:06:00 10/15/2017 23:59:59 CLS Outpatient MEGHA LOZANO DO [facility] RAD SCREENING MAMMO [id number] 02/06/2017 13:24:00 02/06/2017 23:59:59 CLS Outpatient ALOK NAM MD [facility] RAD L SHOULDER MASS ENLARGED R SUPRACLAVICULAR LYMPH [id number] 11/15/2016 11:52:00 11/15/2016 14:20:00 DIS Outpatient LILIA MICHELLE MD [facility] SDC HISTORY OF [place]RETTS [id number] 11/13/2016 06:25:00 11/13/2016 11:01:00 DIS Outpatient LILIA MICHELLE MD [facility] PREOP HISTORY OF [place]RE[place]S [id number] 11/05/2016 00:10:00 11/05/2016 23:59:59 CLS Preadmit DILIP MOHR [facility] LAB LUQ PAIN,NAUSEA,DIARRHEA [id number] 08/09/2016 07:36:00 11/04/2016 00:01:00 DIS Outpatient DILIP MOHR [facility] LAB LUQ PAIN,NAUSEA, DIARRHEA [id number] 10/17/2016 08:18:00 10/17/2016 23:59:59 CLS Outpatient FENECH MEGHA [facility] RAD ABNORMAL MAMMO [id number] 10/11/2016 15:08:00 10/11/2016 23:59:59 CLS Outpatient BLAKE DO MEGHA Yifan [facility] RAD PELVIC MASS IN FEMALE ,MAMMO SCREENING [id number] 10/03/2016 13:04:00 10/03/2016 23:59:59 CLS Outpatient BLAKE DO MEGHA Yifan [facility] RAD LT OVARIAN CYST [id number] 08/16/2016 09:24:00 08/16/2016 23:59:59 CLS Outpatient DILIP MOHR [facility] RAD DIARRHEA,BUQ ABD PAIN [id number] 01/17/2016 09:16:00 01/17/2016 13:50:00 DIS Outpatient LILIA MICHELLE MD [facility] SCREENING; EPIGASTRIC PAIN [id number] 01/16/2016 05:53:00 01/16/2016 12:57:00 DIS Outpatient LILIA MICHELLE MD [facility] PREOP SCREENING; EPIGASTRIC PAIN [id number] 11/16/2015 07:41:00 11/16/2015 23:59:59 CLS Outpatient CHON GOLDEN APRN [facility] RAD RIGHT UPPER QUAD PAIN [id number] 07/15/2015 16:26:00 07/15/2015 23:59:59 CLS Outpatient YAKOV SALCIDO [facility] QUICK [id number] 11/28/2014 06:47:00 11/28/2014 23:59:59 CLS Outpatient LISSA HENDERSON DO [facility] RAD [id number] 11/04/2014 11:56:00 11/04/2014 15:05:00 DIS Outpatient LISSA HENDERSON DO [facility] SDC [id number] 11/03/2014 05:57:00 11/03/2014 23:59:59 CLS Outpatient LISSA HENDERSON DO [facility] PREOP HX ULCERS [id number] 09/12/2014 20:08:00 09/12/2014 22:50:00 DIS Emergency GHISLAINE NEAL MD [facility] ER ABD PAIN [id number] 05/18/2014 08:13:00 08/16/2014 00:01:00 DIS Outpatient ALOK NAM MD [facility] CARD PALPITATIONS [id number] 04/20/2014 16:01:00 04/20/2014 23:59:59 CLS Outpatient [id number] 03/04/2013 12:03:00 03/04/2013 23:59:59 CLS Outpatient [id number] 08/05/2018 11:15:00 PEN Preadmit LILIA MICHELLE MD [facility] ENDO DYSPHAGIA [id number] 08/17/2014 08:00:00 Document Registration [id number] 09/10/2012 09:00:00 Document Registration
[2018-08-05] MEDS ORDERED: NS IV 500 ML 500 ML IV PRN (11:07)
[2018-08-05 11:10] VITALS: BP 129/94
[2018-08-05] MEDS ORDERED: fentaNYL INJECTION 100 MCG/2 ML AMP IVP ONE (11:15)
[2018-08-05] MEDS ORDERED: MIDAZOLAM 2 MG/2 ML (VERSED) VIAL IVP ONE (11:15)
--- NOTE | 2018-08-05 11:15 | Conscious Sedation/ASA ---
Conscious Sedation Pre-Proced Time 11:00 ASA Score 2 For ASA 3 and 4: Consider anesthesia and medical clearance. Also, for patients with a history of failed moderate sedation consider anesthesia. Airway Lungs Heart ASA score ASA 1: a normal healthy patient ASA 2: a patient with a mild systemic disease (mid diabetes, controlled hypertension, obesity ASA 3: a patient with a severe systemic disease that limits activity (angina , COPD, prior Myocardial infarction) ASA 4: a patient with an incapacitating disease that is a constant threat to life (CHF, renal failure) ASA 5: a moribund patient not expected to survive 24 hrs. (ruptured aneurysm) ASA 6: a declared brain patient whose organs are being harvested. For emergent operations, add the letter E after the classification Mallampati Classification Grade 2 Sedation Plan Analgesia, Amnesia, Plan communicated to team members, Discussed options with patient/fam, Discussed risks with patient/fam The patient is an appropriate candidate to undergo the planned procedure, sedation, and anesthesia. The patient immediately re-assessed prior to indication. LILIA MICHELLE MD Aug 05, 2018 11:15 am
--- NOTE | 2018-08-05 11:16 | Progress Note-Pre Operative ---
Pre-Operative Progress Note H&P Reviewed The H&P was reviewed, patient examined and no changes noted. Date Seen by Provider: Aug 05, 2018 Time Seen by Provider: 11:00 Date H&P Reviewed: Aug 05, 2018 Time H&P Reviewed: 11:00 Pre-Operative Diagnosis: achalasia LILIA MICHELLE MD Aug 05, 2018 11:16 am
[2018-08-05] MEDS ORDERED: ACETAMINOPHEN 325 MG TABLET PO PRN (11:30)
[2018-08-05] MEDS ORDERED: ONDANSETRON 4 MG/2 ML (SDV) Z0FRAN IV PRN (11:30)
[2018-08-05] MEDS ORDERED: morphine INJ 10 MG/ML 1ML (SYR OR VIAL) IV PRN (11:30)
[2018-08-05] MEDS ORDERED: HYDROcodone/APAP 5 MG/325 MG (LORTAB) TAB PO PRN (11:30)
[2018-08-05] MEDS ORDERED: LIDOCAINE JELLY 2% 6 ML SYRINGE ONE (12:00)
[2018-08-05] MEDS ORDERED: HURRICAINE EXT TUBE (BENZOCAINE) ONE (12:00)
[2018-08-05] MEDS ORDERED: proPOfol 200 MG/20 ML (DIPRIVAN) VIAL IV ONE ×3 (12:01→13:18)
[2018-08-05] MEDS ORDERED: MIDAZOLAM 2 MG/2 ML (VERSED) VIAL ONE ×3 (12:02→13:00)
--- NOTE | 2018-08-05 13:40 | Progress Note-Post Operative ---
Post-Operative Progess Note Surgeon (s)/Paint Crew Supervisor (s) Surgeon LILIA MICHELLE MD Paint Crew Supervisor: none Pre-Operative Diagnosis achalasia Post-Operative Diagnosis same Procedure & Operative Findings Date of Procedure 08/05/18 Procedure Performed/Findings EGD with bx and balloon dilatation. Anesthesia Type MAC Estimated Blood Loss Estimated blood loss (mL): minimal Specimens/Packing Specimens Removed GE jxn LILIA MICHELLE MD Aug 05, 2018 1:40 pm
--- NOTE | 2018-08-05 13:42 | Discharge Inst-Surgical ---
D/C Lap Instructions-VIVIANA Follow Up PRN Activity as tolerated Avoid Alcohol, Caffeine, Spicy [place] and Acid foods. Drink 64 fluid oz or more of fluids per day. Symptoms to Report: Fever over 101 degree F, Nausea/Vomiting If any problems/questions: Contact your physician or go to Emergency Room LILIA MICHELLE MD Aug 05, 2018 1:42 pm
[2018-08-05 13:45] VITALS: BP 114/69
[2018-08-05] MEDS ORDERED: LIDOCAINE JELLY 2% (XYLOCAINE) 5 ML TUBE TOP ONE (13:45)
[2018-08-05] MEDS ORDERED: HURRICAINE EXT TUBE (BENZOCAINE) XX ONE (13:45)
--- NOTE | 2018-08-05 13:48 | Anesthesia-General Post-Op ---
MAC Patient Condition Mental Status/LOC: Same as Preop Cardiovascular: Satisfactory Nausea/Vomiting: Absent Respiratory: Satisfactory Pain: Controlled Complications: Absent Post Op Complications Complications None Follow Up Care/Instructions Patient Instructions None needed. Anesthesiology Discharge Order Discharge Order Patient was seen after the procedure and she was doing well, no complaints, stable vital signs, no apparent adverse anesthesia problems. HUSAM PAUL DO Aug 05, 2018 13:48
[2018-08-05 14:10] VITALS: BP 102/72
[2018-08-05 14:12] VITALS: BP 102/72
--- NOTE | 2018-08-05 14:58 | OPERATIVE REPORT ---
DATE OF SERVICE: 08/05/2018 ATTENDING PRIMARY CARE PHYSICIAN: Dr. Gordillo. PREOPERATIVE DIAGNOSIS: Achalasia. POSTOPERATIVE DIAGNOSIS: Achalasia. PROCEDURE: EGD biopsy and balloon dilatation. SURGEON: Lilia Michelle MD ANESTHESIA: Monitored anesthesia care. ESTIMATED BLOOD LOSS: Minimal. FINDINGS: A hypertonic lower esophageal sphincter, reflux esophagitis grade II, mild gastritis. No distal obstructions. DISPOSITION: The patient tolerated the procedure well. INDICATIONS: The patient is a 43-year-old female known to us. She has had dysphagia for several years. She reports liquids will go down; however, she has difficulty with solid food boluses. On 05/29/2018, she underwent an EGD with balloon dilatation. She was found to have a hiatal hernia, which was small. Biopsies were negative for H. pylori as well as negative for Mooney esophagus. She was dilated to 18 mm; however, did become symptomatic with dysphagia again. She then underwent esophageal manometry study, which did show hypertonic lower esophageal sphincter at 74.3 mmHg pressure. The esophageal body was also abnormal with 44% ineffect of swallows, which occurs after chronic achalasia and chronic esophageal body dilation. DESCRIPTION OF PROCEDURE: The patient was brought to the endoscopy suite and laid in left lateral decubitus position. After adequate IV pain and sedative medications and monitored anesthesia care, the mouthpiece was applied. The endoscope was placed in the mouth, visualizing the pharynx and hypopharyngeal region. Vocal cords, epiglottis and vallecula identified, appeared to be normal. The endoscope was then gently intubated in the esophageal opening and esophagus insufflated. Endoscope was then advanced to the first, second and third portion of esophagus at the level of the GE junction. There was a reflux esophagitis grade II. There was hypertonicity of what appeared to be the lower esophageal sphincter. We were able to pass through this junction with the pressure of the endoscope and the endoscope retroflexed, visualizing a small hiatal hernia 1.5 cm in size. There was a mild to moderate severity gastritis. No formal ulcerations, polyps or any neoplasms. The endoscope was then advanced to the pylorus and the first and second portion of duodenum, which appeared normal. A biopsy was taken of the GE junction with forceps to rule out Mooney's esophagus. We then proceeded with dilatation of the achalasia. The balloon was placed in the stomach and pulled back to the area of the lower esophageal sphincter and first dilated to 2 atmospheres of pressure, 18 mm in circumferential diameter with mild resistance. We then proceeded to 4 atmospheres of pressure or 19 mm in diameter with moderate resistance. We then proceeded to 6 atmospheres of pressure or 20 mm in circumferential diameter with moderate resistance and left this in place for approximately 60 seconds. The balloon was then desufflated and removed. There were no mucosal tears identified as well as no bleeding. The endoscope was then slowly withdrawn while taking a second look and suctioning of residual air with no additional findings. The patient tolerated the procedure well. We will continue to recommend continued medical management with lifestyle and diet accommodation including small and more frequent meals, avoidance of eating at night as well as head elevation while lying supine. She also needs to avoid caffeinated beverages, spicy, greasy and acidic foods as well as continue with medical management with nitrates p.r.n. and continued dilatation p.r.n. If she continues to have symptoms despite graded dilatations, the next step would be either a botulinum toxin injection versus a laparoscopic or thoracic Heller myotomy and a loose partial fundoplication. In which case we would refer her to a tertiary center. Job ID: [id number] DocumentID: [id number] Dictated Date: 08/05/2018 13:37:11 Manager Strategy & Account Date: 08/05/2018 14:57:55 Dictated By: LILIA MICHELLE MD MTDDanica
[2018-08-06] MEDS ORDERED: TRAM50TA2 PO (08:29)
[2018-08-06] MEDS ORDERED: NITR0.3T7 PO (08:29)
[2018-08-06] MEDS ORDERED: RANI150T90 PO (08:31)
--- NOTE | 2018-08-06 17:51 | CONSULTATION REPORT ---
DATE OF SERVICE: 08/05/2018 ATTENDING PRIMARY CARE PHYSICIAN: Dr. Gordillo ADMITTING PHYSICIAN: Dr. Hernandez. HISTORY OF PRESENT ILLNESS: The patient is a 43-year-old female known to us. She has had a longstanding history of dysphagia. On 05/29/2018, she underwent an EGD as well as biopsy and balloon dilatation. She was found to have a small hiatal hernia as well. Biopsies were negative for H. pylori as well as negative for Mooney's esophagus. She was dilated to 18 mm; however, she did become symptomatic again. We did have her undergo an esophageal manometry study, which did show hypertonic lower esophageal sphincter at 74.3 mmHg pressure. The esophageal body was also abnormal with 44% in effective swallows consistent with achalasia. She was started on nitroglycerin instead and states that this did help some. She also does have some risk factors, which do include smoking as well as vaporized nicotine. She returned to the office having worsening dysphagia. She underwent an EGD as well as balloon dilatation to about 20 mm in luminal diameter on 08/05/2018. Throughout the process, she did lose IV access and there was an interval remission during the procedure due to a very difficult peripheral venous access. She also again has a history of smoking and was coughing substantially. She did well after the procedure and was sent home; however, stated approximately 6 hours later, she did develop fever, chills and body aches. Upon presentation, she did have leukocytosis as well as a new infiltrate identified in the left lobe of the lung. A CT scan of the abdomen and pelvis was also performed, which did not show any abnormalities. Since being admitted, she has felt better. Her history and symptomatology most likely represent a left pneumonitis versus an early pneumonia. Either way, she is being treated with IV fluids and antibiotics. At this time, she is tolerating a regular diet. PAST MEDICAL HISTORY: Peptic ulcer disease, gastroesophageal reflux disease, diverticulosis, history of colon polyp, history of Mooney's esophagus in 2016, history of achalasia. PAST SURGICAL HISTORY: Left knee arthroscopy in 2014, right knee arthroscopy in 2014, and partial hysterectomy in 1998. DRUG ALLERGIES: BIAXIN, NIFEDIPINE. MEDICATIONS: 1. Dexilant 60 mg daily. 2. Zantac 150 mg b.i.d. 3. Nitroglycerin 0.4 mg before every meal. SOCIAL HISTORY: Previously smoked 30 pack years, quit in 2012. Positive for vaporized nicotine. Rare alcohol. FAMILY HISTORY: Mother colon cancer, hypertension. Maternal grandfather lung cancer. Paternal grandmother stroke. REVIEW OF SYSTEMS: Well-nourished female currently in no acute distress. She is not experiencing any shortness of breath; however, she does have intermittent cough. No nausea or vomiting. No diarrhea or constipation. She does report having body aches throughout her joints, especially her back starting last night. All other review of systems are negative. PHYSICAL EXAMINATION: VITAL SIGNS: Temperature 98.0, blood pressure 131/83, pulse 74, respirations 20, pulse ox 98% on room air. CHEST: A few scattered rales and rhonchi bilaterally. HEART: Regular, no murmurs. EXTREMITIES: No lower extremity edema, negative Homans sign. HEENT: No scleral icterus. NECK: No cervical lymphadenopathy. ABDOMEN: Soft, nontender, nondistended. SKIN: Warm, dry. LABORATORY DATA: WBC 20.5, hemoglobin 11.8, hematocrit 34, platelets 250. ASSESSMENT AND PLAN: A 43-year-old female with history of achalasia, status post EGD and balloon dilatation yesterday. She did have significant episodes of coughing and most likely, developed aspiration pneumonitis on the left side. There was also potential for an early pneumonia. At this time, after IV fluid hydration and IV antibiotics, she has felt much better. She does not have any abdominal pain, and was tolerating a regular diet. We will repeat labs tomorrow morning, and if this improves and she is afebrile and asymptomatic, she may be discharged home. Job ID: [id number] DocumentID: [id number] Dictated Date: 08/06/2018 16:06:12 Area Captain Date: 08/06/2018 17:50:01 Dictated By: LILIA MICHELLE MD
== END 2018-08-05 14:15 | disposition home or self-care (01) ==
LOC: ENDO 10:50
PROVIDERS: ATTEND Surgery
DX: K22.0 Achalasia of cardia (principal); K21.0 Gastro-esophageal reflux disease with esophagitis; K29.70 Gastritis, unspecified, without bleeding; I10 Essential (primary) hypertension; Z87.891 Personal history of nicotine dependence; Z79.899 Other long term (current) drug therapy

== ENCOUNTER 2018-08-05 20:49 | Inpatient (IN) | payer OTHER ==
[~2018-08-05] VITALS: Ht 167.6 cm; Wt 88.9 kg
--- OUTSIDE RECORDS SUMMARY | 2018-08-05 20:55 | XMS REPORT | Continuity of Care Document ---
Author Author [facility] Organization [facility] Address Unknown Phone Unavailable Allergies Active Description Code Type Severity Reaction Onset Reported/Identified Relationship to Patient Clinical Status Yes clarithromycin [id number] Drug Allergy Unknown HIVES 06/17/2018 Yes nifedipine [id number] Drug Allergy Moderate RASH 06/17/2018 Medications There [...] V72.84 EXAM PRE-OPERATIVE NOS 08/06/2016 CHON GOLDEN BUSINESS ECONOMIST Ot R10.11 RIGHT UPPER QUADRANT PAIN 08/19/2016 [...] V72.84 EXAM PRE-OPERATIVE NOS 10/03/2016 CHON GOLDEN BUSINESS ECONOMIST Ot R10.11 RIGHT UPPER QUADRANT PAIN 10/03/2016 [...] V72.84 EXAM PRE-OPERATIVE NOS 02/18/2018 CHON GOLDEN BUSINESS ECONOMIST Ot R10.11 RIGHT UPPER QUADRANT PAIN 02/18/2018 [...] MAMMOGRAM FOR MALIGNANT NE 02/20/2018 STEPHANIE POLANCO BUSINESS ECONOMIST Ot K57.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/O PERFORATION OR AB 02/20/2018 SHERRITHO MORANIN L BUSINESS ECONOMIST Ot R07.9 CHEST PAIN, UNSPECIFIED 02/20/2018 SHERRITHO MORANIN L BUSINESS ECONOMIST Ot Z90.710 ACQUIRED ABSENCE OF BOTH CERVIX AND UTER 03/18/2018 SHERRITHO MORANIN L BUSINESS ECONOMIST Ot K57.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/O PERFORATION OR AB 03/18/2018 SHERRITHO MORANIN L BUSINESS ECONOMIST Ot R07.9 CHEST PAIN, UNSPECIFIED 03/18/2018 SHERRITHO MORANIN L BUSINESS ECONOMIST Ot Z90.710 ACQUIRED ABSENCE OF BOTH CERVIX AND UTER 04/09/2018 Ot 785.1 PALPITATIONS 04/09/2018 LISSA HENDERSON DO Ot V72.84 EXAM PRE-OPERATIVE NOS 04/09/2018 CHON GOLDEN BUSINESS ECONOMIST Ot R10.11 RIGHT UPPER QUADRANT PAIN 04/09/2018 [...] SCREEN MAMMOGRAM FOR MALIGNANT NE 04/09/2018 SHERRISTEPHANIE BUSINESS ECONOMIST Ot K57.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/O PERFORATION OR AB 04/09/2018 SHERRISTEPHANIE Nai BUSINESS ECONOMIST Ot R07.9 CHEST PAIN, UNSPECIFIED 04/09/2018 STEPHANIE POLANCO L BUSINESS ECONOMIST Ot Z90.710 ACQUIRED ABSENCE OF BOTH CERVIX [...] MALIG NEOPLASM OF TRAC 07/22/2018 CHON GOLDEN BUSINESS ECONOMIST Ot M41.84 OTHER FORMS OF SCOLIOSIS, THORACIC REGIO 07/22/2018 VERONA GOLDENN R BUSINESS ECONOMIST Ot 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 07/22/2018 VERONA GOLDENJuan Alejo BUSINESS ECONOMIST Ot 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 Type Provider Facility Loc./Unit Complaint [id number] 08/05/2018 10:50:00 08/05/2018 14:15:00 DIS Outpatient LILIA MICHELLE MD [facility] ENDO DYSPHAGIA [id number] 08/04/2018 10:33:00 08/04/2018 10:56:00 DIS Outpatient LILIA MICHELEL MD [facility] PREOP EGD [id number] 07/21/2018 14:37:00 07/21/2018 23:59:59 CLS Outpatient CHON GOLDEN APRN [facility] RAD SCOLIOSIS,BACK PAIN, CHRONIC NECK PAIN,HEADACHES [id number] 06/17/2018 09:36:00 06/17/2018 23:59:59 CLS Outpatient LILIA MICHELLE MD [facility] ENDO DYSPHAGIA/ACHOLASIA REFLUX [id number] 06/15/2018 05:51:00 06/15/2018 10:08:00 DIS Outpatient LILIA MICHELLE MD [facility] PREOP EGD [id number] 05/29/2018 12:45:00 05/29/2018 23:59:59 CLS Preadmit LILIA MICHELLE MD [facility] ENDO DYSPHAGIA [id number] 05/22/2018 05:35:00 05/22/2018 12:37:00 DIS Outpatient LILIA MICHELLE MD [facility] PREOP EGD [id number] 02/19/2018 08:43:00 02/19/2018 23:59:59 CLS Outpatient STEPHANIE POLANCO APRN [facility] RAD LUQ ABD PAIN [id number] 10/15/2017 11:06:00 10/15/2017 23:59:59 CLS Outpatient MEGHA LOZANO DO [facility] RAD SCREENING MAMMO [id number] 02/06/2017 13:24:00 02/06/2017 23:59:59 CLS Outpatient ALOK NAM MD [facility] RAD L SHOULDER MASS ENLARGED R SUPRACLAVICULAR LYMPH [id number] 11/15/2016 11:52:00 11/15/2016 14:20:00 DIS Outpatient LILIA MICHELLE MD [facility] SDC HISTORY OF BARRETTS [id number] 11/13/2016 06:25:00 11/13/2016 11:01:00 DIS Outpatient LILIA MICHELLE MD [facility] PREOP HISTORY OF BARRETTS [id number] 11/05/2016 00:10:00 11/05/2016 23:59:59 CLS Preadmit DILIP MOHR [facility] LAB LUQ PAIN,NAUSEA,DIARRHEA [id number] 08/09/2016 07:36:00 11/04/2016 00:01:00 DIS Outpatient DILIP MOHR [facility] LAB LUQ PAIN,NAUSEA, DIARRHEA [id number] 10/17/2016 08:18:00 10/17/2016 23:59:59 CLS Outpatient MEGHA LOZANO DO [facility] RAD ABNORMAL MAMMO [id number] 10/11/2016 15:08:00 10/11/2016 23:59:59 CLS Outpatient MEGHA LOZANO DO [facility] RAD PELVIC MASS IN FEMALE ,MAMMO SCREENING [id number] 10/03/2016 13:04:00 10/03/2016 23:59:59 CLS Outpatient MEGHA LOZANO DO [facility] RAD LT OVARIAN CYST [id number] 08/16/2016 09:24:00 08/16/2016 23:59:59 CLS Outpatient DILIP MOHR [facility] RAD DIARRHEA,BUQ ABD PAIN [id number] 01/17/2016 09:16:00 01/17/2016 13:50:00 DIS Outpatient LILIA MICHELLE MD [facility] SCREENING; EPIGASTRIC PAIN [id number] 01/16/2016 05:53:00 01/16/2016 12:57:00 DIS Outpatient LILIA MICHELLE MD [facility] PREOP SCREENING; EPIGASTRIC PAIN [id number] 11/16/2015 07:41:00 11/16/2015 23:59:59 CLS Outpatient CHON GOLDEN APRN [facility] RAD RIGHT UPPER QUAD PAIN [id number] 07/15/2015 16:26:00 07/15/2015 23:59:59 CLS Outpatient YAKOV SALCIDO [facility] QUICK [id number] 11/28/2014 06:47:00 11/28/2014 23:59:59 CLS Outpatient LISSA HENDERSON DO [facility] RAD [id number] 11/04/2014 11:56:00 11/04/2014 15:05:00 DIS Outpatient LISSA HENDERSON DO [facility] SDC [id number] 11/03/2014 05:57:00 11/03/2014 23:59:59 CLS Outpatient LISSA HENDERSON DO [facility] PREOP HX ULCERS [id number] 09/12/2014 20:08:00 09/12/2014 22:50:00 DIS Emergency GHISLAINE NEAL MD [facility] ER ABD PAIN [id number] 05/18/2014 08:13:00 08/16/2014 00:01:00 DIS Outpatient ALOK NAM MD [facility] CARD PALPITATIONS [id number] 04/20/2014 16:01:00 04/20/2014 23:59:59 CLS Outpatient [id number] 03/04/2013 12:03:00 03/04/2013 23:59:59 CLS Outpatient [id number] 08/05/2018 20:50:00 ACT Emergency WILBER SINCLAIR MD [facility] ER FEVER AFTER ENDO PROCEDURE [id number] 08/17/2014 08:00:00 Document Registration [id number] 09/10/2012 09:00:00 Document Registration
--- NOTE | 2018-08-05 21:11 | ED General ---
General Stated Complaint: FEVER AFTER ENDO PROCEDURE Source of Information: Patient, Family Exam Limitations: No Limitations History of Present Illness Date Seen by Provider: Aug 05, 2018 Time Seen by Provider: 20:57 Initial Comments The patient presents to the ER by private conveyance with her and daughter and chief complaint that she's had a EGD done today by Dr. Rivera with dilatation of her esophagus and was doing well when she went home but then took a nap and woke up with some body aches especially in both of her legs as well as fevers and chills with a MAXIMUM TEMPERATURE of 101F. She's been taking Tylenol with Motrin with the Tylenol being about 5 hours ago and the Motrin being about 3 hours ago. She feels that they only gave marginal improvement in her body aches and fever. She is having sweats and chills. She's had a little nausea earlier but none right now no vomiting. No diarrhea. No significant medical history. No coughing a little bit short of breath. She has no history of asthma, COPD or other lung disease. She does not smoke, routinely drink or use drugs. She works at the [employer] department and has no known exposures to influenza or other illness. She is otherwise healthy individual. She's had EGDs with dilatation before. She's having no abdominal pain. She thought that maybe some of the palpitations she was having earlier might be related to her esophagus so she took a nitroglycerin tablet and she uses for her esophageal spasms. She feels that this did not make a difference. She has a history of hysterectomy. Allergies and Home Medications Allergies Coded Allergies: nifedipine (Verified Allergy, Intermediate, RASH , 06/17/18) clarithromycin (Verified Allergy, Unknown, HIVES, 01/17/16) Home Medications Dexlansoprazole 60 Mg Aleksandr., 60 MG PO DAILY, (Reported) Pantoprazole Sodium 40 Mg Tablet., 40 MG PO BID, (Reported) Patient Home Medication List Home Medication List Reviewed: Yes Review of Systems Review of Systems Constitutional: chills, diaphoresis, fever, malaise EENTM: No ear discharge, No hearing loss, No ear pain Respiratory: No cough, No dyspnea on exertion, No hemoptysis; short of breath; No wheezing Cardiovascular: No chest pain, No edema, No Hx of Intervention; palpitations Gastrointestinal: No abdominal pain, No constipation, No diarrhea; nausea; No vomiting Genitourinary: No discharge, No dysuria : No Past Hoduqdf-Stjhtw-Dhiuyv Hx Patient Social History Alcohol Use: Denies Use Recreational Drug Use: No Smoking Status: Former Smoker Type Used: Electronic/Vapor Former Smoker, Quit: Aug 27, 2016 Recent Foreign Travel: No Contact w/Someone Who Travel: No Recent Hopitalizations: No Immunizations Up To Date Tetanus Booster (TDap): Unknown Seasonal Allergies Seasonal Allergies: No Past Medical History Hysterectomy Headaches /Migraines Reproductive Disorders: No DRIVER History: Hysterectomy Sexually Transmitted Disease: No Gastroesophageal Reflux, Mooney's Esophagus, Ulcer Arthritis, Scoliosis Loss of Vision: Denies Hearing Impairment: Denies Adverse Reaction/Blood Tranf: No Physical Exam-Suspected Sepsis Physical Exam Vital Signs Vital Signs - First Documented 08/05/18 21:00 Temp 103.1 Pulse 102 Resp 18 B/P (MAP) 117/85 (96) Pulse Ox 99 O2 Delivery Room Air Capillary Refill : Height, Weight, BMI Height: 5'6.00" Weight: 190lbs. 0.0oz. 86.152097fh; 30.7 BMI Method:Stated General Appearance: WD/WN, Mild Distress Eyes: Bilateral Eye Normal Inspection, Bilateral Eye PERRL, Bilateral Eye EOMI HEENT: PERRL/EOMI, TMs Normal, Normal ENT Inspection, Pharynx Normal; No Moist Mucous Membranes (mildly dry) Neck: Full Range of Motion, Normal Inspection, Non Tender, Supple Respiratory: Chest Non Tender, Lungs Clear, Normal Breath Sounds, No Accessory Muscle Use, No Respiratory Distress Cardiovascular: Regular Rate, Rhythm, No Edema, Normal Peripheral Pulses Gastrointestinal: Normal Bowel Sounds, No Organomegaly, No Pulsatile Mass, Non Tender, Soft Extremity: Normal Capillary Refill, Normal Inspection, Normal Range of Motion, Non Tender, No Calf Tenderness, No Pedal Edema Neurologic/Psychiatric: Alert, Oriented x3, No Motor/Sensory Deficits, Normal Mood/Affect, dietary internship II-XII Norm as Tested Skin: normal color, warm/dry Lymphatic: No Adenopathy Focused Exam Lactate Level 08/05/18 21:00: Lactic Acid Level 2.22*H 08/05/18 23:10: Lactic Acid Level 1.15 Lactic Acid Level Laboratory Tests Test 08/05/18 21:00 08/05/18 23:10 Lactic Acid Level 2.22 MMOL/L (0.50-2.00) *H 1.15 MMOL/L (0.50-2.00) Progress/Results/Core Measures Suspected Sepsis SIRS Temperature: Pulse: Respiratory Rate: Laboratory Tests 08/05/18 21:00: White Blood Count 17.5H Blood Pressure / Mean: 08/05/18 21:00: Lactic Acid Level 2.22*H 08/05/18 23:10: Lactic Acid Level 1.15 Laboratory Tests 08/05/18 21:00: Creatinine 0.90, INR Comment 1.0, Platelet Count 275, Total Bilirubin 1.2H Results/Orders Lab Results Laboratory Tests Test 08/05/18 21:00 08/05/18 22:20 08/05/18 23:10 Range/Units White Blood Count 17.5 H 4.3-11.0 10^3/uL Red Blood Count 4.85 4.35-5.85 10^6/uL Hemoglobin 14.2 11.5-16.0 G/DL Hematocrit 40 35-52 % Mean Corpuscular Volume 83 80-99 FL Mean Corpuscular Hemoglobin 29 25-34 PG Mean Corpuscular Hemoglobin Concent 35 32-36 G/DL Red Cell Distribution Width 13.6 10.0-14.5 % Platelet Count 275 130-400 10^3/uL Mean Platelet Volume 9.4 7.4-10.4 FL Neutrophils (%) (Auto) 88 H 42-75 % Lymphocytes (%) (Auto) 5 L 12-44 % Monocytes (%) (Auto) 7 0-12 % Eosinophils (%) (Auto) 0 0-10 % Basophils (%) (Auto) 0 0-10 % Neutrophils # (Auto) 15.4 H 1.8-7.8 X 10^3 Lymphocytes # (Auto) 0.9 L 1.0-4.0 X 10^3 Monocytes # (Auto) 1.2 H 0.0-1.0 X 10^3 Eosinophils # (Auto) 0.0 0.0-0.3 10^3/uL Basophils # (Auto) 0.0 0.0-0.1 10^3/uL Neutrophils % (Manual) 76 % Lymphocytes % (Manual) 6 % Monocytes % (Manual) 6 % Eosinophils % (Manual) 0 % Basophils % (Manual) 0 % Band Neutrophils 12 % Blood Morphology Comment NORMAL Prothrombin Time 13.0 12.2-14.7 SEC INR Comment 1.0 0.8-1.4 Activated Partial Thromboplast Time 27 24-35 SEC Sodium Level 137 135-145 MMOL/L Potassium Level 3.5 L 3.6-5.0 MMOL/L Chloride Level 106 98-107 MMOL/L Carbon Dioxide Level 20 L 21-32 MMOL/L Anion Gap 11 5-14 MMOL/L Blood Urea Nitrogen 10 7-18 MG/DL Creatinine 0.90 0.60-1.30 MG/DL Estimat Glomerular Filtration Rate > 60 BUN/Creatinine Ratio 11 Glucose Level 107 H 70-105 MG/DL Lactic Acid Level 2.22 *H 1.15 0.50-2.00 MMOL/L Calcium Level 9.5 8.5-10.1 MG/DL Corrected Calcium 9.2 8.5-10.1 MG/DL Total Bilirubin 1.2 H 0.1-1.0 MG/DL Aspartate Amino Transf (AST/SGOT) 77 H 5-34 U/L Alanine Aminotransferase (ALT/SGPT) 75 H 0-55 U/L Alkaline Phosphatase 99 40-136 U/L Total Creatine Kinase 62 29-168 U/L Total Protein 7.6 6.4-8.2 GM/DL Albumin 4.4 3.2-4.5 GM/DL Lipase 17 8-78 U/L Urine Color YELLOW Urine Clarity CLEAR Urine pH 8 5-9 Urine Specific [place] 1.015 L 1.016-1.022 Urine Protein NEGATIVE NEGATIVE Urine Glucose (UA) NEGATIVE NEGATIVE Urine Ketones NEGATIVE NEGATIVE Urine Nitrite NEGATIVE NEGATIVE Urine Bilirubin NEGATIVE NEGATIVE Urine Urobilinogen NORMAL NORMAL MG/DL Urine Leukocyte Esterase NEGATIVE NEGATIVE Urine RBC (Auto) 2+ H NEGATIVE Urine RBC 2-5 H /HPF Urine WBC NONE /HPF Urine Squamous Epithelial Cells 2-5 /HPF Urine Crystals NONE /LPF Urine Bacteria FEW H /HPF Urine Casts NONE /LPF Urine Mucus NEGATIVE /LPF Urine Culture Indicated NO Micro Results Microbiology 08/05/18 Influenza Types A,B Antigen (ANTOINE) - Final, Complete My Orders Orders - WILBER SINCLAIR Cbc With Automated Diff (08/05/18 21:03) Comprehensive Metabolic Panel (08/05/18 21:03) Blood Culture (08/05/18 21:03) Sputum Culture (08/05/18 21:03) Urinalysis (08/05/18 21:03) Urine Culture (08/05/18:) Protime With Inr (08/05/18:) Partial Thromboplastin Time (08/05/18:) Chest 1 View, Ap/Pa Only (08/05/18 21:03) Saline Lock/Iv-Start (08/05/18 21:03) Saline Lock/Iv-Start (08/05/18 21:03) Vital Signs Adult Sepsis Patie Q15M (08/05/18 21:03) O2 (08/05/18 21:03) Remove Rings In Anticipation O (08/05/18:) Lactic Acid Analyzer (08/05/18:) Lactated Ringers (Lr 1000 Ml Iv Solution (08/05/18 21:15) Ceftriaxone For Iv Use (Rocephin For I (08/05/18 21:15) Creatine Kinase (08/05/18 21:03) Ketorolac Injection (Toradol Injection) (08/05/18 21:15) Abdomen/Kub 1view (08/05/18 21:13) Manual Differential (08/05/18 21:00) Abdomen/Kub 1view (08/05/18 ) Influenza A And B Antigens (08/05/18 22:08) Lipase (08/05/18 22:58) Ct Abdomen/Pelvis W (08/05/18 22:58) Acetaminophen Tablet (Tylenol Tablet) (08/05/18 23:00) Iohexol Injection (Omnipaque 350 Mg/Ml 1 (08/05/18 23:30) Ns (Ivpb) (Sodium Chloride 0.9%) (08/05/18 23:30) Monotest (08/05/18 23:53) Medications Given in ED Current Medications Medications Dose Ordered Sig/Yasmin Route Start Time Stop Time Status Last Admin Dose Admin Acetaminophen 1,000 mg ONCE ONCE PO 08/05/18 23:00 08/05/18 23:01 DC 08/05/18 23:18 1,000 MG Ceftriaxone Sodium 1000 mg/ Sodium Chloride 60 ml @ 100 mls/hr ONCE ONCE IV 08/05/18 21:15 08/05/18 21:50 DC 08/05/18 21:24 100 MLS/HR Iohexol 100 ml ONCE ONCE IV 08/05/18 23:30 08/05/18 23:31 DC 08/05/18 23:33 100 ML Ketorolac Tromethamine 15 mg ONCE ONCE IVP 08/05/18 21:15 08/05/18 21:16 DC 08/05/18 21:24 15 MG Lactated Ringer's 1,500 ml @ 1,500 mls/hr PRN PRN IV 08/05/18 21:15 08/05/18 21:24 1,500 MLS/HR Sodium Chloride 250 ml ONCE ONCE IV 08/05/18 23:30 08/05/18 23:31 DC 08/05/18 23:34 80 ML Vital Signs/I&O 08/05/18 08/05/18 08/05/18 08/05/18 21:00 21:00 21:24 23:18 Temp 103.1 103.1 100.7 Pulse 102 Resp 18 B/P (MAP) 117/85 (96) Pulse Ox 99 99 O2 Delivery Room Air Room Air Capillary Refill : Progress Note #1: Time: 21:12 Progress Note Seems like she has a viral syndrome so we'll start with influenza swab and a septic workup will give her 1500 cc of fluids which would be a 20 mL/kg bolus rounded to the nearest 500 cc. She doesn't have any focal areas except for the body aches which I think Toradol would help some. We'll get a CK looking for evidence of rhabdo. We'll obtain a 1 view upright KUB looking for evidence of free air in the abdomen. Progress Note #2: Time: 23:00 Progress Note On reexamination the patient's pain has not really changed but her nausea is better. She's feeling a little better fever is still elevated above 101. We will give her a gram of Tylenol and a CT of her abdomen and pelvis. She still quite tender in her epigastric area. Negative for Montalvo sign. Chest x-ray read by radiologist notes a nodular opacity that may be consistent with an infection. It should be visualized on the CT. Diagnostic Imaging Diagonstic Imaging: Xray Plain Films/CT/US/NM/MRI: chest (1 view) Comments [facility] [place], [place] NAME: JONI AGUILERA [facility] REC#: [id number] PT STATUS: REG ER : 1975 PHYSICIAN: WILBER SINCLAIR MD ADMIT DATE: 08/05/18/ER Draft Date of Exam:08/05/18 CHEST 1 VIEW, AP/PA ONLY INDICATION: Fever and chills. COMPARISON: 11/10/2009. FINDINGS: New ill-defined nodular opacity in the left lung base. No pleural effusion or pneumothorax. Heart is normal in size. Normal pulmonary vasculature. IMPRESSION: New left basilar nodular opacity likely represents a focus of infection given patient's clinical presentation. Dictated on workstation # [id number] Dict: 08/05/182151 Trans: 08/05/182157 [facility] [id number] Interpreted by: COLLEEN VANN MD Electronically signed by: Reviewed: Reviewed by Me Diagonstic Imaging: Xray Plain Films/CT/US/NM/MRI: abdomen (upright one view KUB) Comments Nonspecific bowel gas pattern without evidence for obstruction. No free air seen under the diaphragm. The diaphragm is partially cut off about a view so we will have them reimage it. Repeat view demonstrates good view of the diaphragm with no intraperitoneal free air. [facility] [place], [place] NAME: JONI AGUILERA [facility] REC#: [id number] PT STATUS: REG ER : 1975 PHYSICIAN: WILBER SINCLAIR MD ADMIT DATE: 08/05/18/ER Draft Date of Exam:08/05/18 ABDOMEN/KUB 1VIEW INDICATION: Abdominal pain. COMPARISON: 03/04/2011. TECHNIQUE: Abdomen KUB. FINDINGS: Nonobstructive bowel gas pattern. A small amount of colonic stool is present and likely physiologic. No abnormal soft tissue mineralizations. Normal regional skeleton. IMPRESSION: Nonobstructive bowel gas pattern. Dictated on workstation # [id number] Dict: 08/05/182152 Trans: 08/05/182155 [facility] [id number] Interpreted by: COLLEEN VANN MD Electronically signed by: Reviewed: Reviewed by Me Departure Communication (Admissions) Time/Spoke to Admitting Phy: 00:15 Discussed case lab imaging with Dr. Jeffers. Impression Primary Impression: Pneumonia Qualified Codes: J18.1 - Lobar pneumonia, unspecified organism Additional Impression: Sepsis Qualified Codes: A41.9 - Sepsis, unspecified organism Disposition: ADMITTED INPATIENT Condition: Stable Admissions Decision to Admit Reason: Admit from ER (General) Decision to Admit/Date: Aug 06, 2018 Time/Decision to Admit Time: 00:01 Departure-Patient Inst. Referrals: ALOK NAM MD (PCP/Family) Primary Care Physician Copy Copies To 1: ALOK NAM MD, TITUS J Aug 05, 2018 21:11
[2018-08-05 21:14] LABS: BASOPHILS % (AUTO) 0 % (0-10); EOSINOPHILS % (AUTO) 0 % (0-10); HEMATOCRIT 40 % (35-52); HEMOGLOBIN 14.2 G/DL (11.5-16.0); LYMPHOCYTES # (AUTO) 0.9 X 10^3 (1.0-4.0); LYMPHOCYTES % (AUTO) 5 % (12-44); MEAN CORPUSCULAR HEMOGLOBIN 29 PG (25-34); MEAN CORPUSCULAR HGB CONC 35 G/DL (32-36); MEAN CORPUSCULAR VOLUME 83 FL (80-99); MEAN PLATELET VOLUME 9.4 FL (7.4-10.4); MONOCYTES # (AUTO) 1.2 X 10^3 (0.0-1.0); MONOCYTES % (AUTO) 7 % (0-12); NEUTROPHILS # (AUTO) 15.4 X 10^3 (1.8-7.8); NEUTROPHILS % (AUTO) 88 % (42-75); PLATELET COUNT 275 10^3/uL (130-400); RED BLOOD COUNT 4.85 10^6/uL (4.35-5.85); RED CELL DISTRIBUTION WIDTH 13.6 % (10.0-14.5); WHITE BLOOD COUNT 17.5 10^3/uL (4.3-11.0)
[2018-08-05] MEDS ORDERED: cefTRIAXone FOR IV USE 1,000 MG in NS (IVPB) 50 ML IV ONE (21:15)
[2018-08-05] MEDS ORDERED: LACTATED RINGERS 1,500 ML IV PRN (21:15)
[2018-08-05] MEDS ORDERED: KETOROLAC 30 MG/ML VIAL IVP ONE (21:15)
[2018-08-05 21:31] LABS: BAND NEUTROPHILS 12 %; BASOPHILS % (MANUAL) 0 %; EOSINOPHILS % (MANUAL) 0 %; LYMPHOCYTES % (MANUAL) 6 %; MONOCYTES % (MANUAL) 6 %; NEUTROPHILS % (MANUAL) 76 %; RBC MORPH NORMAL
[2018-08-05 21:36] LABS: ALANINE AMINOTRANSFERASE 75 U/L (0-55); ALBUMIN 4.4 GM/DL (3.2-4.5); ALKALINE PHOSPHATASE 99 U/L (40-136); BILIRUBIN,TOTAL 1.2 MG/DL (0.1-1.0); BUN/CREATININE RATIO 11; CALCIUM 9.5 MG/DL (8.5-10.1); CARBON DIOXIDE 20 MMOL/L (21-32); CHLORIDE 106 MMOL/L (98-107); CREATINE KINASE 62 U/L (29-168); GFR ESTIMATED > 60; GLUCOSE 107 MG/DL (70-105); POTASSIUM 3.5 MMOL/L (3.6-5.0); SODIUM 137 MMOL/L (135-145); TOTAL PROTEIN 7.6 GM/DL (6.4-8.2)
--- NOTE | 2018-08-05 21:56 | Diagnostic Imaging Report ---
INDICATION: Abdominal pain. COMPARISON: 03/04/2011. TECHNIQUE: Abdomen KUB. FINDINGS: Nonobstructive bowel gas pattern. A small amount of colonic stool is present and likely physiologic. No abnormal soft tissue mineralizations. Normal regional skeleton. IMPRESSION: Nonobstructive bowel gas pattern. Dictated by: Dictated on workstation # [id number]
--- NOTE | 2018-08-05 21:58 | Diagnostic Imaging Report ---
INDICATION: Fever and chills. COMPARISON: 11/10/2009. FINDINGS: New ill-defined nodular opacity in the left lung base. No pleural effusion or pneumothorax. Heart is normal in size. Normal pulmonary vasculature. IMPRESSION: New left basilar nodular opacity likely represents a focus of infection given patient's clinical presentation. Dictated by: Dictated on workstation # [id number]
[2018-08-05 22:30] LABS: BILIRUBIN,URINE NEGATIVE (NEGATIVE); CLARITY,URINE CLEAR; COLOR,URINE YELLOW; GLUCOSE, URINE (UA) NEGATIVE (NEGATIVE); KETONES,URINE NEGATIVE (NEGATIVE); LEUKOCYTE ESTERASE ,URINE NEGATIVE (NEGATIVE); NITRITE,URINE NEGATIVE (NEGATIVE); PH,URINE 8 (5-9); PROTEIN,URINE NEGATIVE (NEGATIVE); UROBILINOGEN,URINE NORMAL (NORMAL)
[2018-08-05 22:35] LABS: BACTERIA,URINE FEW /HPF
[2018-08-05] MEDS ORDERED: ACETAMINOPHEN 500 MG TAB (TYLENOL) PO ONE (23:00)
[2018-08-05] MEDS ORDERED: IOHEXOL 350 MG/ML 100 ML (OMNIPAQUE 350) VIAL IV ONE (23:30)
[2018-08-05] MEDS ORDERED: NS 250 ML (IVPB) BAG IV ONE (23:30)
[2018-08-06] VITALS (8 sets, daily range): BP systolic 112–138; BP diastolic 62–83
--- OUTSIDE RECORDS SUMMARY | 2018-08-06 00:33 | XMS REPORT | Continuity of Care Document ---
Author Author [facility] Organization [facility] Address Unknown Phone Unavailable Allergies Active Description Code Type Severity Reaction Onset Reported/Identified Relationship to Patient Clinical Status Yes clarithromycin [id number] Drug Allergy Unknown HIVES 06/17/2018 Yes nifedipine [id number] Drug Allergy Moderate RASH 06/17/2018 Medications There [...] V72.84 EXAM PRE-OPERATIVE NOS 08/06/2016 CHON GOLDEN WOOD GLUER Ot R10.11 RIGHT UPPER QUADRANT PAIN 08/19/2016 [...] V72.84 EXAM PRE-OPERATIVE NOS 10/03/2016 CHON GOLDEN WOOD GLUER Ot R10.11 RIGHT UPPER QUADRANT PAIN 10/03/2016 [...] V72.84 EXAM PRE-OPERATIVE NOS 02/18/2018 CHON GOLDEN WOOD GLUER Ot R10.11 RIGHT UPPER QUADRANT PAIN 02/18/2018 [...] MAMMOGRAM FOR MALIGNANT NE 02/20/2018 STEPHANIE POLANCO WOOD GLUER Ot K57.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/O PERFORATION OR AB 02/20/2018 SHERRITHO MORANIN L WOOD GLUER Ot R07.9 CHEST PAIN, UNSPECIFIED 02/20/2018 SHERRITHO MORANIN L WOOD GLUER Ot Z90.710 ACQUIRED ABSENCE OF BOTH CERVIX AND UTER 03/18/2018 SHERRITHO MORANIN L WOOD GLUER Ot K57.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/O PERFORATION OR AB 03/18/2018 SHERRITHO MORANIN L WOOD GLUER Ot R07.9 CHEST PAIN, UNSPECIFIED 03/18/2018 SHERRITHO MORANIN L WOOD GLUER Ot Z90.710 ACQUIRED ABSENCE OF BOTH CERVIX AND UTER 04/09/2018 Ot 785.1 PALPITATIONS 04/09/2018 LISSA HENDERSON DO Ot V72.84 EXAM PRE-OPERATIVE NOS 04/09/2018 CHON GOLDEN WOOD GLUER Ot R10.11 RIGHT UPPER QUADRANT PAIN 04/09/2018 [...] SCREEN MAMMOGRAM FOR MALIGNANT NE 04/09/2018 SHERRISTEPHANIE WOOD GLUER Ot K57.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/O PERFORATION OR AB 04/09/2018 SHERRISTEPHANIE Nai WOOD GLUER Ot R07.9 CHEST PAIN, UNSPECIFIED 04/09/2018 STEPHANIE POLANCO L WOOD GLUER Ot Z90.710 ACQUIRED ABSENCE OF BOTH CERVIX [...] MALIG NEOPLASM OF TRAC 07/22/2018 CHON GOLDEN WOOD GLUER Ot M41.84 OTHER FORMS OF SCOLIOSIS, THORACIC REGIO 07/22/2018 VERONA GOLDENN R WOOD GLUER Ot 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 07/22/2018 VERONA GOLDENJuan Alejo WOOD GLUER Ot M50.30 OTHER CERVICAL DISC DEGENERATION, UNSP C 07/22/2018 VERONA GOLDENN R WOOD GLUER Ot 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, 08/03/2018 CHICOVERONAJuan Alejo WOOD GLUER Ot M41.84 OTHER FORMS OF SCOLIOSIS, THORACIC REGIO 08/03/2018 VERONA GOLDENN R WOOD GLUER Ot 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 08/03/2018 VERONA GOLDENN R WOOD GLUER Ot M50.30 OTHER CERVICAL DISC DEGENERATION, UNSP C 08/03/2018 VERONA GOLDENN R WOOD GLUER Ot 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, Procedures [...] POS OP RESULT FTX RPTABLE 08/15/16 NRG Complete blood count (CBC) with automated white blood cell (WBC) differential - 08/05/18 21:00 Blood leukocytes automated count (number/volume) 17.5 10*3/uL 4.3-11.0 Blood erythrocytes automated count (number/volume) 4.85 10*6/uL 4.35-5.85 Venous blood hemoglobin measurement (mass/volume) 14.2 g/dL 11.5-16.0 Blood hematocrit (volume fraction) 40 % 35-52 Automated erythrocyte mean corpuscular volume 83 [foz_us] 80-99 Automated erythrocyte mean corpuscular hemoglobin (mass per erythrocyte) 29 pg 25-34 Automated erythrocyte mean corpuscular hemoglobin concentration measurement ( mass/volume) 35 g/dL 32-36 Automated erythrocyte distribution width ratio 13.6 % 10.0-14.5 Automated blood platelet count (count/volume) 275 10*3/uL 130-400 Automated blood platelet mean volume measurement 9.4 [foz_us] 7.4-10.4 Automated blood neutrophils/100 leukocytes 88 % 42-75 Automated blood lymphocytes/100 leukocytes 5 % 12-44 Blood monocytes/100 leukocytes 7 % 0-12 Automated blood eosinophils/100 leukocytes 0 % 0-10 Automated blood basophils/100 leukocytes 0 % 0-10 Blood neutrophils automated count (number/volume) 15.4 10*3 1.8-7.8 Blood lymphocytes automated count (number/volume) 0.9 10*3 1.0-4.0 Blood monocytes automated count (number/volume) 1.2 10*3 0.0-1.0 Automated eosinophil count 0.0 10*3/uL 0.0-0.3 Automated blood basophil count (count/volume) 0.0 10*3/uL 0.0-0.1 PT panel in platelet poor plasma by coagulation assay - 08/05/18 21:00 Prothrombin time (PT) in platelet poor plasma by coagulation assay 13.0 s 12.2-14.7 INR in platelet poor plasma or blood by coagulation assay 1.0 0.8-1.4 Activated partial thromboplastin time (aPTT) in platelet poor plasma bycoagulation assay - 08/05/18 21:00 Activated partial thromboplastin time (aPTT) in platelet poor plasma bycoagulation assay 27 s 24-35 Blood manual differential performed detection - 08/05/18 21:00 Blood monocytes/100 leukocytes 6 % NRG Manual blood segmented neutrophils/100 leukocytes 76 % NRG Blood band neutrophils/100 leukocytes 12 % NRG Manual blood lymphocytes/100 leukocytes 6 % NRG Manual eosinophils/100 leukocytes in nose 0 % NRG Manual blood basophils/100 leukocytes 0 % NRG Blood erythrocyte morphology finding identification NORMAL NR Blood lactic acid measurement (moles/volume) - 08/05/18 21:00 Blood lactic acid measurement (moles/volume) 2.22 mmol/L 0.50-2.00 Comprehensive metabolic panel - 08/05/18 21:00 Serum or plasma sodium measurement (moles/volume) 137 mmol/L 135-145 Serum or plasma potassium measurement (moles/volume) 3.5 mmol/L 3.6-5.0 Serum or plasma chloride measurement (moles/volume) 106 mmol/L 98-107 Carbon dioxide 20 mmol/L 21-32 Serum or plasma anion gap determination (moles/volume) 11 mmol/L 5-14 Serum or plasma urea nitrogen measurement (mass/volume) 10 mg/dL 7-18 Serum or plasma creatinine measurement (mass/volume) 0.90 mg/dL 0.60-1.30 Serum or plasma urea nitrogen/creatinine mass ratio 11 NRG Serum or plasma creatinine measurement with calculation of estimated glomerular filtration rate > NRG Serum or plasma glucose measurement (mass/volume) 107 mg/dL 70-105 Serum or plasma calcium measurement (mass/volume) 9.5 mg/dL 8.5-10.1 Serum or plasma total bilirubin measurement (mass/volume) 1.2 mg/dL 0.1-1.0 Serum or plasma alkaline phosphatase measurement (enzymatic activity/volume) 99 U/L 40-136 Serum or plasma aspartate aminotransferase measurement (enzymatic activity/ volume) 77 U/L 5-34 Serum or plasma alanine aminotransferase measurement (enzymatic activity/volume ) 75 U/L 0-55 Serum or plasma protein measurement (mass/volume) 7.6 g/dL 6.4-8.2 Serum or plasma albumin measurement (mass/volume) 4.4 g/dL 3.2-4.5 CALCIUM CORRECTED 9.2 mg/dL 8.5-10.1 Serum or plasma creatine kinase measurement (enzymatic activity/volume) - 08/05 21:00 Serum or plasma creatine kinase measurement (enzymatic activity/volume) 62 U/L 29-168 Influenza virus A and B antigen detection - 08/05/18 21:00 FLU RESULT NEGATIVE FOR INFLUENZA A AND B ANTIGENS BY IA NRG Lipase - 08/05/18 21:00 Lipase 17 U/L 8-78 Serum heterophile antibody titer - 08/05/18 21:00 Serum heterophile antibody titer NEGATIVE NEGATIVE Complete urinalysis with reflex to culture - 08/05/18 22:20 Urine color determination YELLOW NRG Urine clarity determination CLEAR NRG Urine pH measurement by test strip 8 5-9 Specific gravity of urine by test strip 1.015 1.016- 1.022 Urine protein assay by test strip, semi-quantitative NEGATIVE NEGATIVE Urine glucose detection by automated test strip NEGATIVE NEGATIVE Erythrocytes detection in urine sediment by light microscopy 2+ NEGATIVE Urine ketones detection by automated test strip NEGATIVE NEGATIVE Urine nitrite detection by test strip [...] detection in urine sediment by light microscopy FEW NRG Squamous epithelial cells detection in urine sediment by light microscopy 2-5 NRG Crystals detection in urine sediment by light microscopy NONE NRG Casts detection in urine sediment by light microscopy NONE NRG Mucus detection in urine sediment by light microscopy NEGATIVE NRG Complete urinalysis with reflex to culture NO NRG Serum or plasma lactate measurement (moles/volume) - 08/05/18 23:10 Serum or plasma lactate measurement (moles/volume) 1.15 mmol/L 0.50-2.00 Encounters ACCT No. Visit Date/Time Discharge Status Pt. Type Provider Facility Loc./Unit Complaint [id number] 08/05/2018 10:50:00 08/05/2018 14:15:00 DIS Outpatient LILIA MICHELLE MD [facility] ENDO DYSPHAGIA [id number] 08/04/2018 10:33:00 08/04/2018 10:56:00 DIS Outpatient LILIA MICHELLE MD [facility] PREOP EGD [id number] 07/21/2018 14:37:00 07/21/2018 23:59:59 CLS Outpatient CHON GOLDEN APRN [facility] RAD SCOLIOSIS,BACK PAIN, CHRONIC NECK PAIN,HEADACHES [id number] 06/17/2018 09:36:00 06/17/2018 23:59:59 CLS Outpatient LILIA MICHELLE MD [facility] ENDO DYSPHAGIA/ACHOLASIA REFLUX [id number] 06/15/2018 05:51:00 06/15/2018 10:08:00 DIS Outpatient LILIA MICHELLE MD [facility] PREOP EGD [id number] 05/29/2018 12:45:00 05/29/2018 23:59:59 CLS Preadmit LILIA MICHELLE MD [facility] ENDO DYSPHAGIA [id number] 05/22/2018 05:35:00 05/22/2018 12:37:00 DIS Outpatient LILIA MICHELLE MD [facility] PREOP EGD [id number] 02/19/2018 08:43:00 02/19/2018 23:59:59 CLS Outpatient STEPHANIE POLANCO APRN [facility] RAD LUQ ABD PAIN [id number] 10/15/2017 11:06:00 10/15/2017 23:59:59 CLS Outpatient MEGHA LOZANO DO [facility] RAD SCREENING MAMMO [id number] 02/06/2017 13:24:00 02/06/2017 23:59:59 CLS Outpatient ALOK NAM MD [facility] RAD L SHOULDER MASS ENLARGED R SUPRACLAVICULAR LYMPH [id number] 11/15/2016 11:52:00 11/15/2016 14:20:00 DIS Outpatient LILIA MICHELLE MD [facility] SDC HISTORY OF BARRETTS [id number] 11/13/2016 06:25:00 11/13/2016 11:01:00 DIS Outpatient LILIA MICHELLE MD [facility] PREOP HISTORY OF BARRETTS [id number] 11/05/2016 00:10:00 11/05/2016 23:59:59 CLS Preadmit DILIP MOHR [facility] LAB LUQ PAIN,NAUSEA,DIARRHEA [id number] 08/09/2016 07:36:00 11/04/2016 00:01:00 DIS Outpatient DILIP MOHR [facility] LAB LUQ PAIN,NAUSEA, DIARRHEA [id number] 10/17/2016 08:18:00 10/17/2016 23:59:59 CLS Outpatient MEGHA LOZANO DO [facility] RAD ABNORMAL MAMMO [id number] 10/11/2016 15:08:00 10/11/2016 23:59:59 CLS Outpatient MEGHA LOZANO DO [facility] RAD PELVIC MASS IN FEMALE ,MAMMO SCREENING [id number] 10/03/2016 13:04:00 10/03/2016 23:59:59 CLS Outpatient MEGHA LOZANO DO S [facility] RAD LT OVARIAN CYST [id number] 08/16/2016 09:24:00 08/16/2016 23:59:59 CLS Outpatient DILIP MOHR [facility] RAD DIARRHEA,BUQ ABD PAIN [id number] 01/17/2016 09:16:00 01/17/2016 13:50:00 DIS Outpatient LILIA MICHELLE MD [facility] SCREENING; EPIGASTRIC PAIN [id number] 01/16/2016 05:53:00 01/16/2016 12:57:00 DIS Outpatient LILIA MICHELLE MD [facility] PREOP SCREENING; EPIGASTRIC PAIN [id number] 11/16/2015 07:41:00 11/16/2015 23:59:59 CLS Outpatient CHICO CHONJuan Alejo APRN [facility] RAD RIGHT UPPER QUAD PAIN [id number] 07/15/2015 16:26:00 07/15/2015 23:59:59 CLS Outpatient YAKOV SALCIDO [facility] QUICK [id number] 11/28/2014 06:47:00 11/28/2014 23:59:59 CLS Outpatient LISSA HENDERSON DO [facility] RAD [id number] 11/04/2014 11:56:00 11/04/2014 15:05:00 DIS Outpatient LISSA HENDERSON DO [facility] SDC [id number] 11/03/2014 05:57:00 11/03/2014 23:59:59 CLS Outpatient LISSA HENDERSON DO [facility] PREOP HX ULCERS [id number] 09/12/2014 20:08:00 09/12/2014 22:50:00 DIS Emergency GHISLAINE NEAL MD [facility] ER ABD PAIN [id number] 05/18/2014 08:13:00 08/16/2014 00:01:00 DIS Outpatient ALOK NAM MD [facility] CARD PALPITATIONS [id number] 04/20/2014 16:01:00 04/20/2014 23:59:59 CLS Outpatient [id number] 03/04/2013 12:03:00 03/04/2013 23:59:59 CLS Outpatient [id number] 08/06/2018 00:05:00 ACT Inpatient MRAK FRANCISCO, JODIE Priest [facility] 4TH PNA,SEPSIS [id number] 08/17/2014 08:00:00 Document Registration [id number] 09/10/2012 09:00:00 Document Registration
[2018-08-06] MEDS ORDERED: NS W/KCL 40 MEQ/L 1,000 ML IV ONE (00:44)
[2018-08-06] MEDS: NS W/KCL 40 MEQ/L 1,000 ML IV SCH ×2 (01:00→07:47)
[2018-08-06] MEDS ORDERED: RT-ALBUTEROL SULF 2.5 MG/3 ML PRE-MIX VIAL INH PRN (01:30)
[2018-08-06] MEDS ORDERED: fentaNYL INJECTION 100 MCG/2 ML AMP IV PRN ×2 (02:00→06:00)
[2018-08-06] MEDS ORDERED: ONDANSETRON 4 MG/2 ML (SDV) Z0FRAN IV PRN (02:00)
[2018-08-06] MEDS ORDERED: PROMETHAZINE INJ 25 MG/ML (PHENERGAN) AMP IV PRN (02:00)
[2018-08-06] MEDS ORDERED: KETOROLAC 15 MG/ML VIAL IV PRN (02:00)
[2018-08-06] MEDS: DOXYCYCLINE INJECTION 100 MG in NS (IVPB) 50 ML IV SCH ×2 (02:10→08:59)
[2018-08-06] MEDS: RT-ALBUTEROL SULF 2.5 MG/3 ML PRE-MIX VIAL INH SCH ×4 (03:13→19:27)
--- NOTE | 2018-08-06 05:55 | Diagnostic Imaging Report ---
PROCEDURE: CT abdomen and pelvis with contrast. TECHNIQUE: Multiple contiguous axial images were obtained through the abdomen and pelvis after administration of intravenous contrast. INDICATION: Fever, chills, body ache and mid abdominal pain. Comparison is made to study of 02/19/2018. FINDINGS: There is mild dependent atelectasis and/or pneumonitis in the visualized lung bases. This has increased when compared to previous study. Below the diaphragm, there is low-density throughout the liver indicating steatosis. No gallbladder, pancreatic or splenic abnormality is identified. There is no significant biliary ductal dilatation. Adrenal glands and kidneys are stable and unremarkable in appearance. There is no abdominal free fluid or evidence of pathologic adenopathy. There is moderate amount of pelvic free fluid similar to previous study. In addition, there is an approximately 2.5 cm cystic region in the right adnexa which may represent ruptured ovarian cyst. There is no evidence of appendiceal inflammation. The circumscribed cystic structure measuring 1.6 cm in diameter anterior to the left psoas muscle has remained stable as well. IMPRESSION: Moderate amount of pelvic free fluid which may be related to ruptured ovarian cyst. If indicated, followup ultrasonography of the pelvis may be of value. Otherwise, no acute abnormality or adverse change is identified. Fatty infiltration and left retroperitoneal cystic structure have remained stable. Dictated by: Dictated on workstation # [id number]
[2018-08-06 06:07] LABS: BASOPHILS % (AUTO) 0 % (0-10); EOSINOPHILS # (AUTO) 0.1 10^3/uL (0.0-0.3); EOSINOPHILS % (AUTO) 0 % (0-10); HEMATOCRIT 34 % (35-52); HEMOGLOBIN 11.8 G/DL (11.5-16.0); LYMPHOCYTES # (AUTO) 2.5 X 10^3 (1.0-4.0); LYMPHOCYTES % (AUTO) 12 % (12-44); MEAN CORPUSCULAR HEMOGLOBIN 29 PG (25-34); MEAN CORPUSCULAR HGB CONC 34 G/DL (32-36); MEAN CORPUSCULAR VOLUME 84 FL (80-99); MEAN PLATELET VOLUME 9.7 FL (7.4-10.4); MONOCYTES # (AUTO) 1.4 X 10^3 (0.0-1.0); MONOCYTES % (AUTO) 7 % (0-12); NEUTROPHILS # (AUTO) 16.5 X 10^3 (1.8-7.8); NEUTROPHILS % (AUTO) 81 % (42-75); PLATELET COUNT 250 10^3/uL (130-400); RED BLOOD COUNT 4.11 10^6/uL (4.35-5.85); RED CELL DISTRIBUTION WIDTH 13.7 % (10.0-14.5); WHITE BLOOD COUNT 20.5 10^3/uL (4.3-11.0)
[2018-08-06 06:29] LABS: BUN/CREATININE RATIO 10; CALCIUM 8.3 MG/DL (8.5-10.1); CARBON DIOXIDE 18 MMOL/L (21-32); CHLORIDE 111 MMOL/L (98-107); CREATININE SERUM 0.72 MG/DL (0.60-1.30); GFR ESTIMATED > 60; GLUCOSE 100 MG/DL (70-105); POTASSIUM 3.7 MMOL/L (3.6-5.0); SODIUM 137 MMOL/L (135-145)
[2018-08-06] MEDS ORDERED: CATHETER FLUSH 10 ML SYR IV PRN (06:30)
--- NOTE | 2018-08-06 06:34 | Diagnostic Imaging Report ---
INDICATION: Fever and chills Upright AP view of the abdomen is obtained. Comparison is made to the study of 08/05/2018. There is mild to moderate amount of stool throughout the colon. No free intraperitoneal gas or pneumatosis is identified. There is no evidence of pathologic abdominal calcification. Note is made of mild left basilar atelectasis and/or pneumonitis. IMPRESSION: No free intraperitoneal gas or evidence of bowel obstruction. There is left basilar atelectasis and/or pneumonitis. Dictated by: Dictated on workstation # [id number]
[2018-08-06 06:39] LABS: BAND NEUTROPHILS 5 %; EOSINOPHILS % (MANUAL) 1 %; LYMPHOCYTES % (MANUAL) 12 %; MONOCYTES % (MANUAL) 7 %; NEUTROPHILS % (MANUAL) 75 %; RBC MORPH NORMAL
[2018-08-06] MEDS ORDERED: FLU QUADRIvalent (5+ YOA) 2018-2019 (AFLURIA) 0.5 ML IM ONE (07:30)
[2018-08-06] MEDS: ACETAMINOPHEN 500 MG TAB (TYLENOL) PO PRN ×2 (07:59→17:29)
[2018-08-06] MEDS ORDERED: TRAM50TA2 PO (08:29)
[2018-08-06] MEDS ORDERED: NITR0.3T7 PO (08:29)
[2018-08-06] MEDS ORDERED: RANI150T90 PO (08:31)
[2018-08-06] MEDS ORDERED: HYDROcodone/APAP 7.5 MG/325 MG (LORTAB, LORCET PLUS) TABLET PO PRN (09:30)
--- NOTE | 2018-08-06 11:56 | History & Physical-Hospitalist ---
History of Present Illness HPI/Chief Complaint Pt is a 43yoCF with a history of GERD who presented to the ER for fever after her EGD with dilatation yesterday. She does not remember most of last night though. She had her procedure done and then went home and slept but woke up feeling poorly and with back pain and hip pain. She denies any cough or body aches but she does have back and hip pain still. She states she's feeling better today but still not back to normal. Date Seen 08/06/18 Time Seen by a Provider: 13:57 Attending Physician Ricardo Jeffers MD PCP Bonilla Gordillo MD Referring Physician Date of Admission Aug 06, 2018 at 00:05 Home Medications & Allergies Home Medications Reviewed patient Home Medication Reconciliation performed by pharmacy medication reconciliations emissions technician and/or nursing. Patients Allergies have been reviewed. Allergies Allergies Coded Allergies nifedipine (Verified Allergy, Intermediate, RASH , 06/17/18) clarithromycin (Verified Allergy, Unknown, HIVES, 01/17/16) Past Gvortgw-Kopqwr-Ebvsax Hx Past Med/Social Hx: Reviewed Nursing Past Med/Soc Hx Patient Social History Alcohol Use: Denies Use Recreational Drug Use: No Smoking Status: Former Smoker Former Smoker, Quit: Aug 27, 2016 Type Used: Electronic/Vapor Physical Abuse Screen: No Sexual Abuse: No Recent Foreign Travel: No Contact w/other who traveled: No Recent Hopitalizations: Yes (egd 08/05/18) Recent Infectious Disease Expo: No Immunizations Up To Date Tetanus Booster (TDap): Unknown Seasonal Allergies Seasonal Allergies: No Past Medical History Surgeries: Hysterectomy, Orthopedic Neurological: Headaches /Migraines : No Reproductive: No Sexually Transmitted Disease: No Hysterectomy Gastrointestinal: Gastroesophageal Reflux, Mooney's Esophagus, Ulcer Musculoskeletal: Arthritis, Scoliosis Loss of Vision: Denies Hearing Impairment: Denies History of Blood Disorders: No Adverse Reaction to Blood Richardson: No Family History Reviewed Nursing Family Hx Cancer Review of Systems Constitutional: No chills; fever, malaise EENTM: no symptoms reported Respiratory: No cough, No short of breath Gastrointestinal: No abdominal pain, No constipation; heartburn; No nausea, No vomiting Genitourinary: No dysuria, No frequency Musculoskeletal: back pain, joint pain; No muscle pain Skin: no symptoms reported Psychiatric/Neurological: No Symptoms Reported Physical Exam Physical Exam Vital Signs Vital Signs - First Documented 08/05/18 08/06/18 21:00 01:18 Temp 103.1 Pulse 102 Resp 18 B/P (MAP) 117/85 (96) Pulse Ox 99 O2 Delivery Room Air FiO2 21 Capillary Refill : Less Than 3 Seconds Height, Weight, BMI Height: 5'6.00" Weight: 196lbs. 0.0oz. 88.269347pi; 31.6 BMI Method:Stated General Appearance: No Apparent Distress, WD/WN HEENT: PERRL/EOMI, Moist Mucous Membranes Neck: Non Tender, Supple Respiratory: Lungs Clear, No Respiratory Distress Cardiovascular: Regular Rate, Rhythm, No Murmur Gastrointestinal: Normal Bowel Sounds, Non Tender, Soft Extremity: Normal Capillary Refill, No Calf Tenderness Neurologic/Psychiatric: Alert, Oriented x3, Normal Mood/Affect Skin: Normal Color, Warm/Dry Results Results/Procedures Labs Laboratory Tests 08/05/18 21:00 08/06/18 05:35 Patient resulted labs reviewed. Imaging: Reviewed Imaging Report Assessment/Plan Admission Diagnosis Severe Sepsis Admission Status: Inpatient Order (span 2 midnights) Reason for Inpatient Admission: Needs IV abx and will likely take two or more midnights to stabilize for discharge Diagnosis/Problems Diagnosis/Problems (1) Severe sepsis Assessment & Plan: Met severe sepsis on arrival- now resolved Febrile with leukocytosis Lactic acid elevated- now resolved CXR shows left lobe infiltrate Continue on abx Await cultures (2) CAP (community acquired pneumonia) Status: Acute Assessment & Plan: Continue on abx as above MAT Protocol Qualifiers: Laterality: left Lung location: lower lobe of lung Qualified Codes: J18.1 - Lobar pneumonia, unspecified organism (3) GERD (gastroesophageal reflux disease) Clinical Quality Measures DVT/VTE Risk/Contraindication: Risk Factor Score Per Nursin RFS Level Per Nursing on Admit: 4+=Very High MARCO ANTONIO AMAYA MD Aug 06, 2018 11:56 am
--- NOTE | 2018-08-06 12:34 | Diagnostic Imaging Report ---
Indication: Pneumonia PA and lateral chest obtained at 1048 hrs am, and compared to yesterday. Heart and mediastinal silhouette are normal in appearance. Mild infiltrate in the left lateral base is again noted. There is minimal right basilar atelectatic change. There is no pneumothorax or pleural fluid. Upper lung zones are clear. IMPRESSION: Mild infiltrate left lateral base again noted without change compared to the prior study. There is minimal right basilar atelectasis. No other new finding is otherwise seen. Dictated by: Dictated on workstation # [id number]
[2018-08-06] MEDS: DOXYCYCLINE 100 MG (VIBRAMYCIN) TABLET PO SCH (17:29)
[2018-08-06] MEDS ORDERED: cefTRIAXone FOR IV USE 1,000 MG in NS (IVPB) 50 ML IV SCH (21:00)
[2018-08-07 00:13] VITALS: BP 109/74
[2018-08-07] MEDS: RT-ALBUTEROL SULF 2.5 MG/3 ML PRE-MIX VIAL INH SCH ×2 (01:42→09:27)
[2018-08-07 04:15] VITALS: BP 103/68
[2018-08-07 06:00] LABS: BASOPHILS % (AUTO) 0 % (0-10); EOSINOPHILS # (AUTO) 0.3 10^3/uL (0.0-0.3); EOSINOPHILS % (AUTO) 2 % (0-10); HEMATOCRIT 35 % (35-52); HEMOGLOBIN 11.5 G/DL (11.5-16.0); LYMPHOCYTES # (AUTO) 2.5 X 10^3 (1.0-4.0); LYMPHOCYTES % (AUTO) 22 % (12-44); MEAN CORPUSCULAR HEMOGLOBIN 28 PG (25-34); MEAN CORPUSCULAR HGB CONC 33 G/DL (32-36); MEAN CORPUSCULAR VOLUME 85 FL (80-99); MEAN PLATELET VOLUME 9.7 FL (7.4-10.4); MONOCYTES # (AUTO) 0.8 X 10^3 (0.0-1.0); MONOCYTES % (AUTO) 7 % (0-12); NEUTROPHILS % (AUTO) 69 % (42-75); PLATELET COUNT 223 10^3/uL (130-400); RED BLOOD COUNT 4.07 10^6/uL (4.35-5.85); RED CELL DISTRIBUTION WIDTH 13.9 % (10.0-14.5); WHITE BLOOD COUNT 11.7 10^3/uL (4.3-11.0)
[2018-08-07] MEDS: DOXYCYCLINE 100 MG (VIBRAMYCIN) TABLET PO SCH (06:03)
[2018-08-07 06:18] LABS: BUN/CREATININE RATIO 8; CALCIUM 8.7 MG/DL (8.5-10.1); CARBON DIOXIDE 17 MMOL/L (21-32); CHLORIDE 111 MMOL/L (98-107); CREATININE SERUM 0.71 MG/DL (0.60-1.30); GFR ESTIMATED > 60; GLUCOSE 78 MG/DL (70-105); POTASSIUM 3.5 MMOL/L (3.6-5.0); SODIUM 139 MMOL/L (135-145)
[2018-08-07 08:00] VITALS: BP 131/81
[2018-08-07] MEDS ORDERED: DOXY100T2 PO (08:49)
[2018-08-07] MEDS ORDERED: LACT1CAP74 PO (08:49)
--- NOTE | 2018-08-07 08:53 | Discharge Inst-Simple/Standard ---
Discharge Inst-Standard Discharge Medications New, Converted or Re-Newed RX: Transmitted to Pharmacy Patient Instructions/Follow Up Plan of Care/Instructions/FU: Please continue to take your antibiotics even if you are feeling better. Please follow up with your PCP next week to follow up this hospital stay. Activity as Tolerated: Yes Discharge Diet: No Restrictions Return to The Hospital For: Cough, worsening fever, confusion, if you feel you are getting worse. MARCO ANTONIO AMAYA MD Aug 07, 2018 08:53
--- NOTE | 2018-08-07 09:06 | Discharge Summary-Hospitalist ---
Diagnosis/Chief Complaint Date of Admission Aug 06, 2018 at 12:05 am Date of Discharge Discharge Date: Aug 07, 2018 Admission Diagnosis Severe Sepsis Discharge Diagnosis (1) Severe sepsis Assessment & Plan: Met severe sepsis on arrival- now resolved Febrile with leukocytosis Lactic acid elevated- now resolved CXR shows left lobe infiltrate Continue on abx Await cultures (2) CAP (community acquired pneumonia) Status: Acute Assessment & Plan: Continue on abx as above MAT Protocol (3) GERD (gastroesophageal reflux disease) Discharge Summary Discharge Physical Exam Allergies: Coded Allergies: nifedipine (Verified Allergy, Intermediate, RASH , 06/17/18) clarithromycin (Verified Allergy, Unknown, HIVES, 01/17/16) Vitals & I&Os Vital Signs Date Time Temp Pulse Resp B/P (MAP) Pulse Ox O2 Delivery O2 Flow Rate FiO2 08/07/18 08:00 97.2 73 18 131/81 (98) 97 Room Air 08/06/18 01:18 21 General Appearance: No Apparent Distress, WD/WN Respiratory: Lungs Clear, No Respiratory Distress Cardiovascular: Regular Rate, Rhythm, No Murmur Gastrointestinal: Normal Bowel Sounds, Non Tender, Soft Neurologic/Psychiatric: Alert, Oriented x3 Hospital Course Pt was admitted for severe sepsis from pneumonia. She was started on Rocephin and Doxycycline and responded well to therapy and had an uneventful hospital course. She was discharged home in stable condition to follow up with her PCP. She was comfortable with plan to DC home with oral antibiotics. Labs (last 24 hrs) Laboratory Tests 08/07/18 05:25: White Blood Count 11.7H, Red Blood Count 4.07L, Hemoglobin 11.5, Hematocrit 35, Mean Corpuscular Volume 85, Mean Corpuscular Hemoglobin 28, Mean Corpuscular Hemoglobin Concent 33, Red Cell Distribution Width 13.9, Platelet Count 223, Mean Platelet Volume 9.7, Neutrophils (%) (Auto) 69, Lymphocytes (%) (Auto) 22, Monocytes (%) (Auto) 7, Eosinophils (%) (Auto) 2, Basophils (%) (Auto) 0, Neutrophils # (Auto) 8.0H, Lymphocytes # (Auto) 2.5, Monocytes # (Auto) 0.8, Eosinophils # (Auto) 0.3, Basophils # (Auto) 0.0 08/07/18 05:45: Sodium Level 139, Potassium Level 3.5L, Chloride Level 111H, Carbon Dioxide Level 17L, Anion Gap 11, Blood Urea Nitrogen 6L, Creatinine 0.71, Estimat Glomerular Filtration Rate > 60, BUN/Creatinine Ratio 8, Glucose Level 78, Calcium Level 8.7 Microbiology 08/05/18 Blood Culture - Preliminary, Resulted No growth 08/05/18 Influenza Types A,B Antigen (ANTOINE) - Final, Complete Patient resulted labs reviewed. Pending Labs Laboratory Tests 08/07/18 05:25: White Blood Count 11.7, Red Blood Count 4.07, Hemoglobin 11.5, Hematocrit 35, Mean Corpuscular Volume 85, Mean Corpuscular Hemoglobin 28, Mean Corpuscular Hemoglobin Concent 33, Red Cell Distribution Width 13.9, Platelet Count 223, Mean Platelet Volume 9.7, Neutrophils (%) (Auto) 69, Lymphocytes (%) (Auto) 22, Monocytes (%) (Auto) 7, Eosinophils (%) (Auto) 2, Basophils (%) (Auto) 0, Neutrophils # (Auto) 8.0, Lymphocytes # (Auto) 2.5, Monocytes # (Auto) 0.8, Eosinophils # (Auto) 0.3, Basophils # (Auto) 0.0 08/07/18 05:45: Sodium Level 139, Potassium Level 3.5, Chloride Level 111, Carbon Dioxide Level 17, Anion Gap 11, Blood Urea Nitrogen 6, Creatinine 0.71, Estimat Glomerular Filtration Rate > 60, BUN/Creatinine Ratio 8, Glucose Level 78, Calcium Level 8.7 Imaging: Reviewed Imaging Report Discussion & Recommendations Discharge Planning: >30 minutes discharge planning Discharge Home Medications: Active Scripts Active Probiotic (Lactobacillus Combination No.4) 1 Each Capsule 1 Each PO AC Doxycycline Hyclate 100 Mg Tablet 100 Mg PO BID@0700,1700 Reported Acid Photonics Engineering Technician (RANITIDINE) (Ranitidine HCl) 150 Mg Tablet 150 Mg PO BID PRN Tramadol HCl 50 Mg Tablet 50 Mg PO BID PRN Nitroglycerin 0.3 Mg Tab.subl 0.3 Mg PO AC Dexilant (Dexlansoprazole) 60 Mg Cap.bp 60 Mg PO DAILY Instructions to patient/family Please see electronic discharge instructions given to patient. Clinical Quality Measures DVT/VTE Risk/Contraindication: Risk Factor Score Per Nursin RFS Level Per Nursing on Admit: 4+=Very High Problem Qualifiers (1) CAP (community acquired pneumonia): Laterality: left Lung location: lower lobe of lung Qualified Codes: J18.1 - Lobar pneumonia, unspecified organism MARCO ANTONIO AMAYA MD Aug 07, 2018 9:06 am
[2018-08-07 10:08] VITALS: BP 131/81
== END 2018-08-07 10:08 | disposition home or self-care (01) | DRG 871 ==
LOC: EDUNIT# 20:49 → ER 20:50 → 4TH 08-06 00:05
PROVIDERS: ADMIT Internal Medicine; ATTEND Internal Medicine
DX: A41.9 Sepsis, unspecified organism (principal); J18.9 Pneumonia, unspecified organism; K21.9 Gastro-esophageal reflux disease without esophagitis
CPT/HCPCS: 36415; 71045; 71046; 74018; 74177; 80048; 80053; 81000; 82550; 83605; 83690; 85007; 85025; 85027; 85610; 85730; 86308; 87040; 87088; 87804; 94640; 94760; 96361; 96365; 96375

== ENCOUNTER → 2018-08-13 | Outpatient (CLI) | payer OTHER ==
[~2018-08-13] MED LIST changes: +DOXY100T2 PO; +LACT1CAP74 PO; +NITR0.3T7 PO; +RANI150T90 PO
[2018-08-13 11:44] LABS: MEAN PLATELET VOLUME 9.3 FL (7.4-10.4); RED BLOOD COUNT 4.93 10^6/uL (4.35-5.85); RED CELL DISTRIBUTION WIDTH 14.1 % (10.0-14.5); WHITE BLOOD COUNT 7.7 10^3/uL (4.3-11.0)
[2018-08-13 12:06] LABS: BUN/CREATININE RATIO 13; CALCIUM 9.5 MG/DL (8.5-10.1); CARBON DIOXIDE 22 MMOL/L (21-32); CHLORIDE 103 MMOL/L (98-107); GFR ESTIMATED > 60; GLUCOSE 95 MG/DL (70-105); POTASSIUM 4.3 MMOL/L (3.6-5.0); SODIUM 137 MMOL/L (135-145)
--- NOTE | 2018-08-13 12:17 | Diagnostic Imaging Report ---
INDICATION: Lower respiratory infection. PA and lateral chest. FINDINGS: Heart size and pulmonary vascularity are normal. Lungs are clear. There are no effusions or pneumothoraces. IMPRESSION: Negative chest. Dictated by: Dictated on workstation # [id number]
== END ==
LOC: RAD 11:03
PROVIDERS: ATTEND Physician Assistant
DX: J18.1 Lobar pneumonia, unspecified organism (principal)
CPT/HCPCS: 36415; 71046; 80048; 82565; 84520; 85027

== ENCOUNTER → 2018-12-15 | Outpatient (CLI) | payer OTHER ==
--- NOTE | 2018-12-15 13:22 | Diagnostic Imaging Report ---
INDICATION: Routine screening. COMPARISON: 10/15/2017 and 10/11/2016. TECHNIQUE: 2D and 3D bilateral screening mammography was performed with CAD. FINDINGS: Both breasts remain heterogeneously dense, limiting the sensitivity of mammography. No mass or malignant appearing microcalcifications are seen. The axillae are unremarkable. IMPRESSION: No mammographic features suspicious for malignancy are identified. ACR BI-RADS Category 1: Negative. Result letter will be mailed to the patient. Note: At least 10% of breast cancer is not imaged by mammography. Dictated by: Dictated on workstation # [id number]
== END ==
LOC: RAD 08:19
PROVIDERS: ATTEND Obstetrics & Gynecology
DX: Z12.31 Encounter for screening mammogram for malignant neoplasm of breast (principal)
CPT/HCPCS: 77067

== ENCOUNTER 2019-01-08 05:37 | Outpatient (CLI) | payer OTHER ==
[~2019-01-08] VITALS: Ht 167.6 cm; Wt 88.9 kg
== END 2019-01-08 09:47 | disposition home or self-care (01) ==
LOC: PREOP 05:37
PROVIDERS: ATTEND Surgery
DX: Z01.818 Encounter for other preprocedural examination (principal)

== ENCOUNTER 2019-01-15 11:27 | Day surgery (SDC) | payer OTHER ==
[~2019-01-15] VITALS: Ht 167.6 cm; Wt 88.9 kg
--- NOTE | 2019-01-15 11:30 | Conscious Sedation/ASA ---
Conscious Sedation Pre-Proced Time 11:30 ASA Score 2 For ASA 3 and 4: Consider anesthesia and medical clearance. Also, for patients with a history of failed moderate sedation consider anesthesia. Airway Lungs Heart ASA score ASA 1: a normal healthy patient ASA 2: a patient with a mild systemic disease (mid diabetes, controlled hypertension, obesity ASA 3: a patient with a severe systemic disease that limits activity (angina , COPD, prior Myocardial infarction) ASA 4: a patient with an incapacitating disease that is a constant threat to life (CHF, renal failure) ASA 5: a moribund patient not expected to survive 24 hrs. (ruptured aneurysm) ASA 6: a declared brain- patient whose organs are being harvested. For emergent operations, add the letter E after the classification Mallampati Classification Grade 2 Sedation Plan Analgesia, Amnesia, Plan communicated to team members, Discussed options with patient/fam, Discussed risks with patient/fam The patient is an appropriate candidate to undergo the planned procedure, sedation, and anesthesia. The patient immediately re-assessed prior to indication. LILIA MICHELLE MD Jan 15, 2019 11:30
[2019-01-15] MEDS ORDERED: LACTATED RINGERS 1,000 ML IV STA (11:31)
--- NOTE | 2019-01-15 11:32 | Progress Note-Pre Operative ---
Pre-Operative Progress Note H&P Reviewed The H&P was reviewed, patient examined and no changes noted. Date Seen by Provider: Jan 15, 2019 Time Seen by Provider: 11:30 Date H&P Reviewed: Jan 15, 2019 Time H&P Reviewed: :30 Pre-Operative Diagnosis: dysphagia LILIA MICHELLE MD Jan 15, 2019 11:32
[2019-01-15] MEDS ORDERED: LACTATED RINGERS 1,000 ML IV ONE (11:33)
--- NOTE | 2019-01-15 11:34 | Discharge Inst-Surgical ---
D/C Lap Instructions-KIDO New, Converted, or Re-Newed RX: RX on Chart Follow Up Appt in 8 weeks Activity as tolerated High Fiber Diet 25g or more per day Avoid Alcohol, Caffeine, Spicy [place] and Acid foods. Drink 64 fluid oz or more of fluids per day. Symptoms to Report: Fever over 101 degree F, Nausea/Vomiting If any problems/questions: Contact your physician or go to Emergency Room LILIA MICHELLE MD Jan 15, 2019 11:34
[2019-01-15] MEDS ORDERED: HURRICAINE EXT TUBE (BENZOCAINE) XX PRN (11:45)
[2019-01-15] MEDS ORDERED: HYDROcodone/APAP 5 MG/325 MG (LORTAB) TAB PO PRN (11:45)
[2019-01-15] MEDS ORDERED: ACETAMINOPHEN 325 MG TABLET PO PRN (11:45)
[2019-01-15] MEDS ORDERED: ONDANSETRON 4 MG/2 ML (SDV) Z0FRAN IV PRN (11:45)
[2019-01-15] MEDS ORDERED: morphine INJ 10 MG/ML 1ML (SYR OR VIAL) IV PRN (11:45)
[2019-01-15] MEDS ORDERED: MIDAZOLAM 5 MG/5 ML (VERSED) VIAL ONE (12:01)
[2019-01-15] MEDS ORDERED: proPOfol 200 MG/20 ML (DIPRIVAN) VIAL IV ONE (12:01)
[2019-01-15] MEDS ORDERED: HURRICAINE EXT TUBE (BENZOCAINE) ONE (12:03)
[2019-01-15 12:09] VITALS: BP 136/88
[2019-01-15] MEDS ORDERED: LIDOCAINE JELLY 2% 6 ML SYRINGE ONE (12:12)
--- NOTE | 2019-01-15 12:35 | Progress Note-Post Operative ---
Post-Operative Progess Note Surgeon (s)/Tung Nut Grower (s) Surgeon LILIA MICHELLE MD Tung Nut Grower: none Pre-Operative Diagnosis dysphagia, achalasia Post-Operative Diagnosis reflux esophagitis(stage 2), elevated les tone, small HH(1.5cm), mild gastritis. Procedure & Operative Findings Date of Procedure 01/15/19 Procedure Performed/Findings EGD with balloon dilatation. Anesthesia Type MAC Estimated Blood Loss Estimated blood loss (mL): minimal Specimens/Packing Specimens Removed none LILIA MICHELLE MD Jan 15, 2019 12:35
[2019-01-15 12:45] VITALS: BP 103/64
[2019-01-15] MEDS ORDERED: HURRICAINE EXT TUBE (BENZOCAINE) XX ONE (12:45)
--- NOTE | 2019-01-15 12:52 | Anesthesia-General Post-Op ---
MAC Patient Condition Mental Status/LOC: Same as Preop Cardiovascular: Satisfactory Nausea/Vomiting: Absent Respiratory: Satisfactory Pain: Controlled Complications: Absent Post Op Complications Complications None Follow Up Care/Instructions Patient Instructions None needed. Anesthesiology Discharge Order Discharge Order Patient is doing well, no complaints, stable vital signs, no apparent adverse anesthesia problems. No complications reported per nursing. SATISH ZAMORA CRNA Jan 15, 2019 12:52
[2019-01-15] MEDS ORDERED: LIDOCAINE JELLY 2% 6 ML SYRINGE TOP ONE (13:00)
[2019-01-15 13:15] VITALS: BP 116/85
[2019-01-15 13:25] VITALS: BP 116/85
--- NOTE | 2019-01-15 19:08 | OPERATIVE REPORT ---
DATE OF SERVICE: 01/15/2019 ATTENDING PRIMARY CARE PHYSICIAN: Dr. Gordillo. PREOPERATIVE DIAGNOSES: Dysphagia and achalasia. POSTOPERATIVE DIAGNOSIS: Dysphagia and achalasia. PROCEDURE PERFORMED: Esophagogastroduodenoscopy with balloon dilatation. SURGEON: Lilia Michelle MD. ANESTHESIA: Monitored anesthesia care. ESTIMATED BLOOD LOSS: Minimal. FINDINGS: Mild hypertonicity of the lower esophageal sphincter. Small hiatal hernia approximately 1.5 cm in size. Minimal gastritis. DISPOSITION: The patient tolerated the procedure well. INDICATIONS: The patient is a 43-year-old female who has had issues with dysphagia for several years. On 05/29/2018, she underwent an EGD with biopsy as well as balloon dilatation and was also found to have a small hiatal hernia. She was dilated to an 8 mm in diameter. We eventually sent her for an esophageal manometry study, which did show hypertonicity of the esophageal stricture at 74.3 mmHg pressure. There was also abnormal esophageal body peristalsis with 44% ineffective. She states that since her last dilatation which was in 07/2018, she did well; however, has had recurrent dysphagia with nocturnal coughing and dysphagia. DESCRIPTION OF PROCEDURE: The patient was brought to the endoscopy suite, laid in left lateral decubitus position. After adequate IV pain and sedating medications and monitored anesthesia care, the mouthpiece was applied. The endoscope was placed in the mouth, visualizing the pharynx and hypopharyngeal region. Vocal cords, epiglottis and vallecula identified and appeared to be normal. The endoscope was then gently intubated. The esophageal opening and esophagus insufflated. The endoscope was then advanced to the first, second and third portions of the esophagus. At the level of the GE junction, there was a slight hypertonicity of the lower esophageal sphincter. There was a reflux esophagitis, stage II. The endoscope was then easily advanced through this region and the endoscope retroflexed, visualizing a small hiatal hernia approximately 1.5 cm in size. There was a mild gastritis, no formal ulcerations, polyps or any neoplasms. Pylorus and duodenum appeared normal with no distal obstructions. We then proceeded with the dilatation of the lower esophageal sphincter. Then, the balloon was placed in the stomach and pulled back to the area of the lower esophageal sphincter and insufflated to 4 atmospheres of pressure or 19 mm in diameter with mild resistance. We then proceeded to 6 atmospheres of pressure or 20 mm in diameter with moderate resistance and left this in place for approximately 60 seconds. The balloon was then desufflated and removed with visualization of good hemostasis as well as no leak or mucosal tears. The endoscope was then slowly withdrawn while taking a second look and suctioning residual air with no additional findings. The patient tolerated the procedure well. We will recommend continued medical management with the necessary lifestyle and diet accommodation including small and more frequent meals, avoidance of eating at night as well as head elevation while lying supine. She also needs to take in small and more frequent meals and avoid the foods that do cause dysphagia. She does take sublingual nitroglycerin which does help with smooth muscle relaxation and we will have her continue with that as well. Job ID: [id number] DocumentID: [id number] Dictated Date: 01/15/2019 12:32:49 Sewer Line Repairer Date: 01/15/2019 19:08:04 Dictated By: LILIA MICHELLE MD MTDD
== END 2019-01-15 13:25 | disposition home or self-care (01) ==
LOC: ENDO 11:27
PROVIDERS: ATTEND Surgery
DX: K22.0 Achalasia of cardia (principal); K44.9 Diaphragmatic hernia without obstruction or gangrene; K29.70 Gastritis, unspecified, without bleeding; K21.9 Gastro-esophageal reflux disease without esophagitis; F17.290 Nicotine dependence, other tobacco product, uncomplicated; Z79.899 Other long term (current) drug therapy

== ENCOUNTER 2019-12-16 05:52 | Outpatient (CLI) | payer OTHER ==
[~2019-12-16] VITALS: Ht 167 cm
[~2019-12-16 05:52] MED LIST changes: -RANI-515 PO; +RANI-609 PO; +TRM50T PO
== END 2019-12-16 15:32 | disposition home or self-care (01) ==
LOC: PREOP 05:52
PROVIDERS: ATTEND Surgery
DX: Z01.818 Encounter for other preprocedural examination (principal)

== ENCOUNTER → 2019-12-17 | Outpatient (CLI) | payer OTHER ==
[~2019-12-17] MED LIST changes: +DICY20TA10 PO; +HYDR-34 PO; +HYOS0.1283 SL; +ONDA8TAB13 PO; +PANT40TA2 PO; +TRAM-42 PO
--- NOTE | 2019-12-17 10:09 | Diagnostic Imaging Report ---
PROCEDURE: US Gallbladder. TECHNIQUE: Multiple real-time grayscale images were obtained over the right upper quadrant in various projections. INDICATION: Abdominal pain. FINDINGS: The previous abdominal ultrasound exam performed on 11/16/2015 failed to show any sign of cholelithiasis or acute cholecystitis. On this study, there is still no evidence for cholelithiasis. There does seem to be slight thickening of the portion of the gallbladder wall. This portion of the wall measures 3.1 mm (normal 3.0 mm). There is no pericholecystic fluid to suggest acute cholecystitis and the common bile duct is not dilated. The liver does not appear to be enlarged and there is no focal mass involving the liver. The biliary tree is not abnormally dilated. Spectral color flow of the portal vein and hepatic veins shows that there is normal direction of flow within the veins. The right kidney is unremarkable. The pancreas and the aorta were not particularly well visualized but show no definite abnormality. The inferior vena cava is unremarkable. IMPRESSION: 1. There is a small focal area of minimal thickening of the wall of the gallbladder. There is no evidence for cholelithiasis or acute cholecystitis however. 2. If clinical concern regarding an acute abnormality of the gallbladder persists and further imaging is desired, then a nuclear medicine hepatobiliary scan would be recommended. Dictated by: Dictated on workstation # [id number]
--- NOTE | 2019-12-17 13:22 | Diagnostic Imaging Report ---
EXAMINATION: Digital mammogram bilateral screening. The current study was also evaluated with a Computer Aided Detection (CAD) system. 3-D tomosynthesis was also performed and reviewed. INDICATION: Screening. This study was compared to the prior exams of 12/15/2018, 10/15/2017, and 10/11/2016. At this time, there are no current complaints. FINDINGS: The fibroglandular tissue in both breasts is heterogeneously dense. This does limit the sensitivity of this exam. Overall, there does not appear to have been any significant change when compared to the prior study. No primary or secondary sign of malignancy is noted. 3D tomographic images fail to show any sign of malignancy. IMPRESSION: There is no radiographic evidence for malignancy. ACR BI-RADS Category 1: Negative. Result letter will be mailed to the patient. Note: At least 10% of breast cancer is not imaged by mammography. Dictated by: Dictated on workstation # [id number]
== END ==
LOC: RAD 07:39
PROVIDERS: ATTEND Obstetrics & Gynecology
DX: Z12.31 Encounter for screening mammogram for malignant neoplasm of breast (principal); K82.8 Other specified diseases of gallbladder; R11.2 Nausea with vomiting, unspecified; R10.11 Right upper quadrant pain
CPT/HCPCS: 76705; 77067

== ENCOUNTER 2019-12-20 15:52 | Emergency (ER) | payer OTHER ==
[~2019-12-20] VITALS: Ht 165.1 cm; Wt 91.8 kg
[~2019-12-20 15:52] MED LIST changes: -DICY20TA10 PO; -HYDR-34 PO; -HYOS0.1283 SL; -ONDA8TAB13 PO; -PANT40TA2 PO; -TRAM-42 PO
[2019-12-20 16:22] LABS: BASOPHILS # (AUTO) 0.1 10^3/uL (0.0-0.1); BASOPHILS % (AUTO) 1 % (0-10); EOSINOPHILS # (AUTO) 0.1 10^3/uL (0.0-0.3); EOSINOPHILS % (AUTO) 1 % (0-10); HEMATOCRIT 42 % (35-52); HEMOGLOBIN 14.5 G/DL (11.5-16.0); LYMPHOCYTES # (AUTO) 2.9 X 10^3 (1.0-4.0); LYMPHOCYTES % (AUTO) 22 % (12-44); MEAN CORPUSCULAR HEMOGLOBIN 29 PG (25-34); MEAN CORPUSCULAR HGB CONC 35 G/DL (32-36); MEAN CORPUSCULAR VOLUME 83 FL (80-99); MEAN PLATELET VOLUME 9.5 FL (7.4-10.4); MONOCYTES # (AUTO) 0.8 X 10^3 (0.0-1.0); MONOCYTES % (AUTO) 6 % (0-12); NEUTROPHILS # (AUTO) 9.2 X 10^3 (1.8-7.8); NEUTROPHILS % (AUTO) 70 % (42-75); PLATELET COUNT 356 10^3/uL (130-400); RED CELL DISTRIBUTION WIDTH 13.5 % (10.0-14.5); WHITE BLOOD COUNT 13.1 10^3/uL (4.3-11.0)
--- NOTE | 2019-12-20 16:33 | ED Abdominal Pain ---
General Chief Complaint: Abdominal/GI Problems Stated Complaint: L SIDE ABD PAIN Nursing Triage Note: C/O L UPPER QUAD PAIN FOR 3 WEEKS NAUSEA NO VOMITING. SAW DR MICHELLE ON FRIDAY HAD GALLBLADDER SONO AT THAT TIME Sepsis Screen: No Definite Risk Source of Information: Patient History of Present Illness Date Seen by Provider: Dec 20, 2019 Time Seen by Provider: 16:16 Initial Comments PT ARRIVES VIA POV FROM HOME C/O LUQ PAIN FOR THE LAST 3-4 WEEKS STATES SHE HAS SEEN DR. MICHELLE FOR THIS AND HAD EGD AND GALL BLADDER ULTRASOUND ON Friday12/17/19--ULTRASOUND SHOWED SMALL FOCAL AREA OF GB WALL THICKENING. OTHERWISE ESSENTIALLY NORMAL IS SCHEDULED TO HAVE A HIDA SCAN ON 12/30/19 + NAUSEA, NO VOMITING NORMAL BM TODAY NO FEVER NO URINARY SYMPTOMS CALLED HIS OFFICE TODAY, AND WAS TOLD TO TAKE A PRILOSEC AND COME HERE. ONLY HAD ZANTAC AT HOME. HAS HISTORY OF GERD/ULCERS/MILLER'S ESOPHAGITIS PCP: DR. NAM SURGEON: DR. MICHELLE Allergies and Home Medications Allergies Coded Allergies: nifedipine (Verified Allergy, Intermediate, RASH , 06/17/18) clarithromycin (Verified Allergy, Unknown, HIVES, 01/17/16) Home Medications Dexlansoprazole 60 Mg Cap.bp, 60 MG PO DAILY, (Reported) Dicyclomine HCl 20 Mg Tablet, 20 MG PO Q6H Prescribed by: NATHAN WILKERSON on 12/20/191838 Hyoscyamine Sulfate 0.125 Mg Tab.subl, 1-2 TAB SL Q4H Prescribed by: NATHAN WILKERSON on 12/20/191838 Nitroglycerin 0.3 Mg Tab.subl, 0.3 MG PO AC, (Reported) Ondansetron 8 Mg Tab.rapdis, 8 MG PO Q6H Prescribed by: NATHAN WILKERSON on 12/20/191838 Pantoprazole Sodium 40 Mg Tablet., 40 MG PO DAILY Prescribed by: NATHAN WILKERSON on 12/20/191838 Ranitidine HCl 150 Mg Tablet, 150 MG PO BID PRN for HEARTBURN, (Reported) Tramadol HCl 50 Mg Tablet, 50 MG PO BID PRN for PAIN-MODERATE, (Reported) Tramadol HCl 50 Mg Tablet, 50 MG PO Q4H PRN for PAIN-MODERATE Prescribed by: NATHAN WILKERSON on 12/20/19 1842 Patient Home Medication List Home Medication List Reviewed: Yes Review of Systems Review of Systems Constitutional: no symptoms reported; No chills, No diaphoresis, No fever Respiratory: No Symptoms Reported Cardiovascular: No Symptoms Reported Gastrointestinal: See HPI, Abdominal Pain; Denies Constipated, Denies Diarrhea; Nausea; Denies Vomiting Genitourinary: No Symptoms Reported Musculoskeletal: no symptoms reported; No back pain Skin: no symptoms reported Psychiatric/Neurological: No Symptoms Reported Endocrine: No Symptoms Reported Hematologic/Lymphatic: No Symptoms Reported Past Gpclowv-Lgmipb-Trmfna Hx Past Med/Social Hx: Reviewed and Corrections made Patient Social History Alcohol Use: Rarely Uses Number of Drinks Today: AA Alcohol Beverage of Choice: Beer Recreational Drug Use: No Smoking Status: Current Everyday Smoker (1/2 PPD, NOW VAPES) Type Used: Cigarettes, Electronic/Vapor 2nd Hand Smoke Exposure: Yes Recent Foreign Travel: No Contact w/Someone Who Travel: No Recent Infectious Disease Expo: No Recent Hopitalizations: No Physical Abuse: No Sexual Abuse: No Mistreated: No Fear: No Immunizations Up To Date Tetanus Booster (TDap): Unknown Seasonal Allergies Seasonal Allergies: No Past Medical History Surgeries: Yes (BILAT KNEE SCOPES; EGD 12/17/19; HYST/OVARIES INTACT) Hysterectomy, Orthopedic Respiratory: Yes (+ TB SKIN TEST--S/P INH TREATMENT) Cardiac: Yes (BRIEF WIDE COMPLEX TACHYCARDIA ON HOLTER--HAD NORMAL CARDIAC CATH 05/2012) Neurological: Yes (RARELY) Headaches /Migraines Reproductive Disorders: Yes Female Reproductive Disorders: Menstrual Problems CUT OFF [employer] History: Hysterectomy Sexually Transmitted Disease: No HIV/AIDS: No Genitourinary: No Gastrointestinal: Yes (DYSPHAGIA; CHRONIC ABDOMINAL PAIN/GI ISSUES) Gastroesophageal Reflux, Miller's Esophagus, Ulcer Musculoskeletal: Yes (RIGHT SHOULDER SURGERY/CHRONIC BURSITIS; BILATERAL KNEE SCOPES) Arthritis, Scoliosis, Chronic Back Pain Endocrine: No HEENT: Yes (GLASSES) Dysphagia Loss of Vision: Bilateral Hearing Impairment: Denies Cancer: No Psychosocial: No Integumentary: No Blood Disorders: No Adverse Reaction/Blood Tranf: No (N/A) Family Medical History Cancer PSH: -RIGHT SHOULDER-SCOPE WITH ACROMIOPLASTY AND RESECTION OF DISTAL RIGHT CLAVICLE -BILATERAL KNEE SCOPES -HYST/OVARIES INTACT -CARDIAC CATH 05/2012--NORMAL -MULTIPLE EGD'S /COLONOSCOPIES Physical Exam Vital Signs Vital Signs - First Documented 12/20/19 15:58 Temp 37.0 Pulse 107 Resp 18 B/P (MAP) 181/104 (129) Pulse Ox 98 O2 Delivery Room Air Capillary Refill : Less Than 3 Seconds Height/Weight/BMI Height: 5'6.00" Weight: 196lbs. 0.0oz. [id number]; 33.00 BMI Method:Stated General Appearance: WD/WN, other (SITTING UPRIGHT, HOLDING LUQ. ) Neck: normal inspection Respiratory: normal breath sounds, no respiratory distress, no accessory muscle use Cardiovascular: regular rate, rhythm, no murmur Gastrointestinal: normal bowel sounds, soft, no organomegaly; No distended; guarding; No rebound; tenderness (MARKED TENDERNESS IN EPIGASTRIC AND ESPECIALLY LUQ. 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, no motor/sensory deficits, alert, normal mood/affect, oriented x 3 Skin: normal color, warm/dry; No rash Progress/Results/Core Measures Results/Orders Lab Results Laboratory Tests Test 12/20/19 14:25 12/20/19 16:14 Range/Units Urine Color YELLOW Urine Clarity CLEAR Urine pH 5.5 5-9 Urine Specific [place] >=1.030 1.016-1.022 Urine Protein NEGATIVE NEGATIVE Urine Glucose (UA) NEGATIVE NEGATIVE Urine Ketones TRACE H NEGATIVE Urine Nitrite NEGATIVE NEGATIVE Urine Bilirubin NEGATIVE NEGATIVE Urine Urobilinogen 0.2 < = 1.0 MG/DL Urine Leukocyte Esterase NEGATIVE NEGATIVE Urine RBC (Auto) 3+ H NEGATIVE Urine RBC RARE /HPF Urine WBC NONE /HPF Urine Squamous Epithelial Cells RARE /HPF Urine Crystals NONE /LPF Urine Bacteria TRACE /HPF Urine Casts NONE /LPF Urine Mucus SMALL H /LPF Urine Culture Indicated NO White Blood Count 13.1 H 4.3-11.0 10^3/uL Red Blood Count 5.06 4.35-5.85 10^6/uL Hemoglobin 14.5 11.5-16.0 G/DL Hematocrit 42 35-52 % Mean Corpuscular Volume 83 80-99 FL Mean Corpuscular Hemoglobin 29 25-34 PG Mean Corpuscular Hemoglobin Concent 35 32-36 G/DL Red Cell Distribution Width 13.5 10.0-14.5 % Platelet Count 356 130-400 10^3/uL Mean Platelet Volume 9.5 7.4-10.4 FL Neutrophils (%) (Auto) 70 42-75 % Lymphocytes (%) (Auto) 22 12-44 % Monocytes (%) (Auto) 6 0-12 % Eosinophils (%) (Auto) 1 0-10 % Basophils (%) (Auto) 1 0-10 % Neutrophils # (Auto) 9.2 H 1.8-7.8 X 10^3 Lymphocytes # (Auto) 2.9 1.0-4.0 X 10^3 Monocytes # (Auto) 0.8 0.0-1.0 X 10^3 Eosinophils # (Auto) 0.1 0.0-0.3 10^3/uL Basophils # (Auto) 0.1 0.0-0.1 10^3/uL Sodium Level 138 135-145 MMOL/L Potassium Level 3.2 L 3.6-5.0 MMOL/L Chloride Level 104 98-107 MMOL/L Carbon Dioxide Level 23 21-32 MMOL/L Anion Gap 11 5-14 MMOL/L Blood Urea Nitrogen 9 7-18 MG/DL Creatinine 0.98 0.60-1.30 MG/DL Estimat Glomerular Filtration Rate > 60 BUN/Creatinine Ratio 9 Glucose Level 104 70-105 MG/DL Calcium Level 9.7 8.5-10.1 MG/DL Corrected Calcium 8.5-10.1 MG/DL Total Bilirubin 0.5 0.1-1.0 MG/DL Aspartate Amino Transf (AST/SGOT) 26 5-34 U/L Alanine Aminotransferase (ALT/SGPT) 54 0-55 U/L Alkaline Phosphatase 92 40-136 U/L Total Protein 8.1 6.4-8.2 GM/DL Albumin 4.8 H 3.2-4.5 GM/DL Amylase Level 54 25-125 U/L Lipase 19 8-78 U/L My Orders Orders - NATHAN WILKERSON DO Ed Iv/Invasive Line Start (12/20/19 16:17) Amylase (12/20/19 16:17) Cbc With Automated Diff (12/20/19 16:17) Comprehensive Metabolic Panel (12/20/19 16:17) Lipase (12/20/19 16:17) Ua Culture If Indicated (12/20/19 16:17) Ct Abdomen/Pelvis W (12/20/19 16:48) Acute Abd Series (12/20/19 16:48) Ed Iv/Invasive Line Start (12/20/19 16:48) Lactated Ringers (Lr 1000 Ml Iv Solution (12/20/19 16:48) Ondansetron Injection (Zofran Injectio (12/20/19 17:00) Hyoscyamine Sl Tablet (Levsin Sl Tablet) (12/20/19 17:00) Ketorolac Injection (Toradol Injection) (12/20/19 16:48) Pantoprazole Injection (Protonix Injecti (12/20/19 17:00) Iohexol Injection (Omnipaque 350 Mg/Ml 1 (12/20/19 17:15) Received Contrast (Hold Metformin- Contr (12/20/19 17:15) Ns (Ivpb) (Sodium Chloride 0.9% Ivpb Bag (12/20/19 17:15) Fentanyl Injection (Sublimaze Injection (12/20/19 18:45) Potassium Chloride (Tablet) (K Dur Table (12/20/19 18:45) Medications Given in ED Vital Signs/I&O 12/20/19 12/20/19 15:58 19:06 Temp 37.0 36.9 Pulse 107 98 Resp 18 18 B/P (MAP) 181/104 (129) 162/98 (129) Pulse Ox 98 98 O2 Delivery Room Air Room Air Blood Pressure Mean: 129 Progress Progress Note : Progress Note GIVEN IV FLUIDS, ZOFRAN, TORADOL, LEVSIN WITH MILD IMPROVEMENT IN PAIN GIVEN FENTANYL WITH MINIMAL IMPROVEMENT OFFERED ADMIT AND PT DECLINES, THEN FAMILY ENCOURAGED TO STAY 1839--SPOKE WITH DR. MICHELLE, AND HE WILL NOT ADMIT PT AT THIS TIME, BUT WILL SEE HER IN THE OFFICE IN THE MORNING. Diagnostic Imaging Comments CT ABDOMEN/PELVIS--NO ACUTE PROCESS, PER RADIOLOGIST REPORT AT 1749 ABDOMEN XRAYS--NO ACUTE PROCESS, PER RADIOLOGIST REPORT AT 1749 Reviewed: Reviewed by Me Departure Communication (Admissions) 183--SPOKE WITH DR. MICHELLE, HE WILL NOT ADMIT PT, BUT WILL SEE HER IN THE OFFICE IN THE MORNING Impression Primary Impression: EPIGASTRIC AND LUQ ABDOMINAL PAIN Additional Impression: MILD HYPOKALEMIA Disposition: 01 HOME, SELF-CARE Condition: Stable Departure-Patient Inst. Referrals: LILIA MICHELLE MD, JOHN D MD (PCP/Family) Primary Care Physician Patient Instructions: Acute Abdomen (Belly Pain), Adult (DC) Add. Discharge Instructions: CLEAR LIQUIDS--WATER, BROTH, JELLO, GATORADE IF YOU ARE BETTER, ADD BRATS DIET TO CLEAR LIQUIDS--BANANAS, RICE, APPLESAUCE, TOAST, SALTINES FOLLOW UP WITH DR. MICHELLE THIS WEEK FOR FURTHER CARE All discharge instructions reviewed with patient and/or family. Voiced understanding. Scripts Tramadol HCl (Ultram) 50 Mg Tablet 50 MG PO Q4H PRN for PAIN-MODERATE for 3 Days, #20 TAB Prov: ROCKNATHAN K DO 12/20/19 Dicyclomine HCl (Dicyclomine HCl) 20 Mg Tablet 20 MG PO Q6H for Abdominal Pain, #20 TAB Prov: ROCK,NATHAN K DO 12/20/19 Hyoscyamine Sulfate (Levsin-Sl) 0.125 Mg Tab.subl 1-2 TAB SL Q4H for Abdominal Pain, #15 TAB Prov: ROCK,NATHAN K DO 12/20/19 Ondansetron (Ondansetron Odt) 8 Mg Tab.rapdis 8 MG PO Q6H for Nausea/Vomiting, #10 TAB Prov: ROCK,NATHAN K DO 12/20/19 Pantoprazole Sodium (Protonix) 40 Mg Tablet.dr 40 MG PO DAILY, #15 TAB Prov: ROCKNATHAN K DO 12/20/19 ROCKNATHAN K DO Dec 20, 2019 16:33
[2019-12-20 16:36] LABS: BILIRUBIN,URINE NEGATIVE (NEGATIVE); CLARITY,URINE CLEAR; COLOR,URINE YELLOW; GLUCOSE, URINE (UA) NEGATIVE (NEGATIVE); KETONES,URINE TRACE (NEGATIVE); LEUKOCYTE ESTERASE ,URINE NEGATIVE (NEGATIVE); NITRITE,URINE NEGATIVE (NEGATIVE); PH,URINE 5.5 (5-9); PROTEIN,URINE NEGATIVE (NEGATIVE)
[2019-12-20 16:45] LABS: ALANINE AMINOTRANSFERASE 54 U/L (0-55); ALBUMIN 4.8 GM/DL (3.2-4.5); ALKALINE PHOSPHATASE 92 U/L (40-136); AMYLASE 54 U/L (25-125); BILIRUBIN,TOTAL 0.5 MG/DL (0.1-1.0); BUN/CREATININE RATIO 9; CALCIUM 9.7 MG/DL (8.5-10.1); CARBON DIOXIDE 23 MMOL/L (21-32); CHLORIDE 104 MMOL/L (98-107); CREATININE SERUM 0.98 MG/DL (0.60-1.30); GFR ESTIMATED > 60; GLUCOSE 104 MG/DL (70-105); LIPASE 19 U/L (8-78); POTASSIUM 3.2 MMOL/L (3.6-5.0); SODIUM 138 MMOL/L (135-145); TOTAL PROTEIN 8.1 GM/DL (6.4-8.2)
[2019-12-20] MEDS ORDERED: KETOROLAC 30 MG/ML VIAL IVP STA (16:48)
[2019-12-20] MEDS ORDERED: LACTATED RINGERS 1,000 ML IV ONE (16:48)
[2019-12-20 16:50] LABS: BACTERIA,URINE TRACE /HPF; RBC,URINE RARE /HPF; SQUAMOUS EPITHELIAL CELL,UR RARE /HPF
[2019-12-20] MEDS ORDERED: HYOSCYAMINE 0.125 MG (LEVSIN) TAB SL ONE (17:00)
[2019-12-20] MEDS ORDERED: ONDANSETRON 4 MG/2 ML (SDV) Z0FRAN IVP ONE (17:00)
[2019-12-20] MEDS ORDERED: PANTOPRAZOLE 40 MG (PROTONIX) VIAL IV ONE (17:00)
[2019-12-20] MEDS ORDERED: NS 100 ML (IVPB) BAG IV ONE (17:15)
[2019-12-20] MEDS ORDERED: IOHEXOL 350 MG/ML 100 ML (OMNIPAQUE 350) VIAL IV ONE (17:15)
[2019-12-20] MEDS ORDERED: HOLD METFORMIN - RECEIVED CONTRAST 20 ML VIAL IV SCH (17:15)
--- NOTE | 2019-12-20 17:35 | Diagnostic Imaging Report ---
EXAMINATION: CT abdomen and pelvis with intravenous contrast. TECHNIQUE: Multiple contiguous axial images were obtained through the abdomen and pelvis after the uneventful administration of intravenous contrast. All CT scans use one or more of the following dose optimizing techniques: Automated exposure control, MA and/or KvP adjustment based on a patient size and exam type, or iterative reconstruction. HISTORY: Left upper quadrant pain for two weeks. COMPARISON: 08/05/2018. FINDINGS: The heart is unremarkable. The included lung bases are clear. There is hepatic steatosis. No focal hepatic lesions are seen. The portal vein is patent. The gallbladder is nondistended. No intra- or extra-hepatic biliary dilation is seen. The spleen, pancreas, adrenal glands, and kidneys have a normal appearance. There is no pathologically enlarged mesenteric or retroperitoneal adenopathy. The bowel loops are nondilated. Scattered diverticula are seen without evidence of acute diverticulitis. There is no free air. No acute osseous abnormalities. Ureters and bladder are grossly normal. Likely hemorrhagic cyst/dominant follicle is seen in the right ovary. A small amount of free fluid is seen in the pelvis. Stable well-circumscribed focus anterior to the left psoas muscle measuring 1.6 cm. IMPRESSION: 1. Small amount of free fluid in the pelvis with a hemorrhagic cyst/dominant follicle in the right ovary. Overall, this appearance is similar to the prior exam in 2018 and may represent ruptured ovarian cyst. 2. Hepatic steatosis. No focal hepatic lesions. 3. Scattered diverticula without evidence of acute diverticulitis. No evidence of bowel obstruction. 4. Stable nonspecific focus anterior to the left psoas muscle, which may represent a lymphocele or other benign etiology. Dictated by: Dictated on workstation # [id number]
--- NOTE | 2019-12-20 17:40 | Diagnostic Imaging Report ---
INDICATION: Nausea and pain. FINDINGS: The heart size is normal. Lungs are clear. Bowel gas pattern is nonspecific. There is no free air. There is some contrast in the urinary collecting system. There are no abnormal abdominal calcifications. IMPRESSION: No acute cardiopulmonary abnormality. Nonspecific bowel gas pattern. Dictated by: Dictated on workstation # [id number]
[2019-12-20] MEDS ORDERED: ONDA8TAB13 PO (18:39)
[2019-12-20] MEDS ORDERED: HYOS0.1283 SL (18:39)
[2019-12-20] MEDS ORDERED: PANT40TA2 PO (18:39)
[2019-12-20] MEDS ORDERED: DICY20TA10 PO (18:39)
[2019-12-20] MEDS ORDERED: TRAM-42 PO (18:42)
[2019-12-20] MEDS ORDERED: KCL 20 MEQ TAB (K-DUR) PO ONE (18:45)
[2019-12-20] MEDS ORDERED: fentaNYL INJECTION 100 MCG/2 ML AMP IVP ONE (18:45)
[2019-12-20 19:06] VITALS: BP 162/98
[2019-12-22] MEDS ORDERED: HYDR-34 PO (11:29)
== END 2019-12-20 19:14 | disposition home or self-care (01) ==
LOC: EDUNIT# 15:52 → ER 15:54
DX: R10.13 Epigastric pain (principal); R10.12 Left upper quadrant pain; E87.6 Hypokalemia; K21.9 Gastro-esophageal reflux disease without esophagitis; F17.210 Nicotine dependence, cigarettes, uncomplicated; F17.290 Nicotine dependence, other tobacco product, uncomplicated; Z88.8 Allergy status to other drugs, medicaments and biological substances; Z95.9 Presence of cardiac and vascular implant and graft, unspecified; Z88.1 Allergy status to other antibiotic agents
CPT/HCPCS: 36415; 74022; 74177; 80053; 81000; 82150; 83690; 85025; 96361; 96374; 96375

== ENCOUNTER 2020-04-13 17:18 | Emergency (ER) | payer OTHER ==
[~2020-04-13] VITALS: Ht 167 cm; Wt 92.0 kg
[~2020-04-13 17:18] MED LIST changes: +DICY20TA10 PO; +HYDR-34 PO; +HYOS0.1283 SL; +ONDA8TAB13 PO; +PANT40TA2 PO; +TRAM-42 PO
[2020-04-13] MEDS ORDERED: PANTOPRAZOLE 40 MG (PROTONIX) VIAL IV ONE (17:45)
[2020-04-13] MEDS ORDERED: FAMOTIDINE 20MG/2ML IV (PEPCID) IV STA (18:27)
[2020-04-13] MEDS ORDERED: LIDOCAINE 2% VISCOUS 15 ML UDC PO ONE (18:30)
[2020-04-13] MEDS ORDERED: ANTACID SUSP 30 ML UDC (MYLANTA) PO ONE (18:30)
--- NOTE | 2020-04-13 18:34 | ED GI ---
General Stated Complaint: ABD PAIN / VOMITING BLOOD Source of Information: Patient Exam Limitations: No Limitations History of Present Illness Date Seen by Provider: Apr 13, 2020 Time Seen by Provider: 18:19 Initial Comments Here with report of choking on water yesterday and then had increased feeling of saliva in her mouth since then. Has vomited twice today. Has epigastric abdominal pain. Vomited a little while ago and noticed a little blood in the vomit. She states is not a lot and quite a few small clots or something. Complains of metal taste in her mouth and persistent salivation. This feels like she has to clear her throat. Does have history of esophageal strictures and require stretching. Also has reflux issues. Denies breathing problems. Denies dysuria, diarrhea or blood in her urine or stool. Timing/Duration: 24 Hours, Changing Over Time, Getting Worse Severity/Quality: Mild, Aching Location: Epigastric Radiation: Other (esophageal) Activities at Onset: None Associated Symptoms: No Back Pain, No Chest Pain, No Fever/Chills; Heartburn; No Nausea/Vomiting, No Shortness of Air, No Weakness Allergies and Home Medications Allergies Coded Allergies: nifedipine (Verified Allergy, Intermediate, RASH , 06/17/18) clarithromycin (Verified Allergy, Unknown, HIVES, 01/17/16) Home Medications Dexlansoprazole 60 Mg Aleksandr., 60 MG PO DAILY, (Reported) Dicyclomine HCl 20 Mg Tablet, 20 MG PO Q6H Prescribed by: NATHAN WILKERSON on 12/20/191838 Hydrocodone Bit/Acetaminophen 1 Ea Tablet, 1 EACH PO Q4H PRN for PAIN-MODERATE Prescribed by: LILIA RIVERA on 12/22/19 1129 Hyoscyamine Sulfate 0.125 Mg Tab.subl, 1-2 TAB SL Q4H Prescribed by: NATHAN WILKERSON on 12/20/191838 Nitroglycerin 0.3 Mg Tab.subl, 0.3 MG PO AC, (Reported) Ondansetron 8 Mg Tab.rapdis, 8 MG PO Q6H Prescribed by: NATHAN WILKERSON on 12/20/191838 Pantoprazole Sodium 40 Mg Tablet.dr, 40 MG PO DAILY Prescribed by: NATHAN WILKERSON on 12/20/191838 Ranitidine HCl 150 Mg Tablet, 150 MG PO BID PRN for HEARTBURN, (Reported) Tramadol HCl 50 Mg Tablet, 50 MG PO BID PRN for PAIN-MODERATE, (Reported) Tramadol HCl 50 Mg Tablet, 50 MG PO Q4H PRN for PAIN-MODERATE Prescribed by: NATHAN WILKERSON on 12/20/19 184 Patient Home Medication List Home Medication List Reviewed: Yes Review of Systems Review of Systems Constitutional: see HPI; No chills, No fever EENTM: See HPI; No Mouth Pain, No Nose Congestion; Throat Pain Respiratory: Denies Shortness of Air, Denies Wheezing Cardiovascular: Denies Chest Pain, Denies Edema Gastrointestinal: Abdominal Pain; Denies Diarrhea; Nausea, Vomiting Genitourinary: No Symptoms Reported Musculoskeletal: no symptoms reported Skin: no symptoms reported Past Yxuknzd-Zyklwn-Nrajjn Hx Past Med/Social Hx: Reviewed Nursing Past Med/Soc Hx Patient Social History Alcohol Use: Occasionally Uses Alcohol Beverage of Choice: Beer Recreational Drug Use: No Smoking Status: Former Smoker Type Used: Cigarettes, Electronic/Vapor Former Smoker, Quit: Aug 27, 2016 2nd Hand Smoke Exposure: Yes Recent Foreign Travel: No Contact w/Someone Who Travel: No Recent Hopitalizations: No Immunizations Up To Date Tetanus Booster (TDap): Unknown Seasonal Allergies Seasonal Allergies: No Past Medical History Surgeries: Yes (BILAT KNEE SCOPES; EGD 12/17/19; HYST/OVARIES INTACT; R SHOULDER) Adenoidectomy, Hysterectomy, Orthopedic, Tonsillectomy Respiratory: Yes (+ TB SKIN TEST--S/P INH TREATMENT) Cardiac: Yes (BRIEF WIDE COMPLEX TACHYCARDIA ON HOLTER--HAD NORMAL CARDIAC CATH 05/2012) Neurological: Yes (RARELY) Headaches /Migraines Reproductive Disorders: Yes 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 Sexually Transmitted Disease: No HIV/AIDS: No Genitourinary: No Gastrointestinal: Yes (DYSPHAGIA; CHRONIC ABDOMINAL PAIN/GI ISSUES) Gastroesophageal Reflux, Mooney's Esophagus, Hiatal Hernia, Ulcer Musculoskeletal: Yes (RIGHT SHOULDER SURGERY/CHRONIC BURSITIS; BILATERAL KNEE SCOPES) Arthritis, Scoliosis, Chronic Back Pain Endocrine: No HEENT: Yes (GLASSES) Dysphagia Loss of Vision: Bilateral Hearing Impairment: Denies Cancer: No Psychosocial: No Integumentary: No Blood Disorders: No Adverse Reaction/Blood Tranf: No (N/A) Family Medical History Reviewed Nursing Family Hx Cancer PSH: -RIGHT SHOULDER-SCOPE WITH ACROMIOPLASTY AND RESECTION OF DISTAL RIGHT CLAVICLE -BILATERAL KNEE SCOPES -HYST/OVARIES INTACT -CARDIAC CATH 05/2012--NORMAL -MULTIPLE EGD'S /COLONOSCOPIES Physical Exam Vital Signs Vital Signs - First Documented 04/13/20 18:15 Temp 36.7 Pulse 98 Resp 20 B/P (MAP) 165/123 (137) Capillary Refill : Height/Weight/BMI Height: 5'6.00" Weight: 196lbs. 0.0oz. 88.770392fa; 32.64 BMI Method:Stated General Appearance: WD/WN, no apparent distress HEENT: PERRL/EOMI, pharynx normal Neck: full range of motion, supple Respiratory: lungs clear, normal breath sounds Cardiovascular: regular rate, rhythm, no murmur Gastrointestinal: soft, tenderness (epigastric mild) Extremities: non-tender, normal inspection Back: normal inspection, no CVA tenderness, no vertebral tenderness Neurologic/Psychiatric: alert, oriented x 3 Skin: normal color, warm/dry Progress/Results/Core Measures Results/Orders Lab Results Laboratory Tests Test 04/13/20 18:45 04/13/20 19:32 Range/Units White Blood Count 12.8 H 4.3-11.0 10^3/uL Red Blood Count 4.89 4.35-5.85 10^6/uL Hemoglobin 14.0 11.5-16.0 G/DL Hematocrit 41 35-52 % Mean Corpuscular Volume 84 80-99 FL Mean Corpuscular Hemoglobin 29 25-34 PG Mean Corpuscular Hemoglobin Concent 34 32-36 G/DL Red Cell Distribution Width 13.3 10.0-14.5 % Platelet Count 391 130-400 10^3/uL Mean Platelet Volume 9.4 7.4-10.4 FL Neutrophils (%) (Auto) 64 42-75 % Lymphocytes (%) (Auto) 24 12-44 % Monocytes (%) (Auto) 7 0-12 % Eosinophils (%) (Auto) 5 0-10 % Basophils (%) (Auto) 1 0-10 % Neutrophils # (Auto) 8.2 H 1.8-7.8 X 10^3 Lymphocytes # (Auto) 3.0 1.0-4.0 X 10^3 Monocytes # (Auto) 0.9 0.0-1.0 X 10^3 Eosinophils # (Auto) 0.6 H 0.0-0.3 10^3/uL Basophils # (Auto) 0.1 0.0-0.1 10^3/uL Sodium Level 142 135-145 MMOL/L Potassium Level 3.6 3.6-5.0 MMOL/L Chloride Level 108 H 98-107 MMOL/L Carbon Dioxide Level 22 21-32 MMOL/L Anion Gap 12 5-14 MMOL/L Blood Urea Nitrogen 10 7-18 MG/DL Creatinine 0.91 0.60-1.30 MG/DL Estimat Glomerular Filtration Rate > 60 BUN/Creatinine Ratio 11 Glucose Level 98 70-105 MG/DL Calcium Level 9.2 8.5-10.1 MG/DL Corrected Calcium 8.5-10.1 MG/DL Total Bilirubin 0.4 0.1-1.0 MG/DL Aspartate Amino Transf (AST/SGOT) 33 5-34 U/L Alanine Aminotransferase (ALT/SGPT) 52 0-55 U/L Alkaline Phosphatase 99 40-136 U/L Total Protein 8.1 6.4-8.2 GM/DL Albumin 4.6 H 3.2-4.5 GM/DL My Orders Orders - GHISLAINE NEAL MD Lidocaine 2% Viscous 15 Ml (Xylocaine Vi (04/13/20 18:30) Antacid Suspension (Mylanta Suspension (04/13/20 18:30) Famotidine Injection (Pepcid Injection) (04/13/20 18:27) Chest Pa/Lat (2 View) (04/13/20 18:27) Medications Given in ED Current Medications Medications Dose Ordered Sig/Yasmin Route Start Time Stop Time Status Last Admin Dose Admin Al Hydrox/Mg Hydrox/Simethicone 30 ml ONCE ONCE PO 04/13/20 18:30 04/13/20 18:31 DC 04/13/20 18:47 30 ML Lidocaine HCl 15 ml ONCE ONCE PO 04/13/20 18:30 20 18:31 DC 20 18:48 15 ML Pantoprazole 40 mg ONCE ONCE IV 04/13/20 17:45 04/13/20 17:46 DC 04/13/20 18:51 40 MG Vital Signs/I&O 04/13/20 18:15 Temp 36.7 Pulse 98 Resp 20 B/P (MAP) 165/123 (137) Progress Progress Note : Progress Note Seen and evaluated. IV, labs, UA, 2 view chest x-ray, Protonix 40 mg IV, Pepcid 20 mg IV and GI cocktail ordered. 1950: Patient doing a little better. Labs reviewed and no significant findings certainly hemoglobin is stable. I did discuss the case with Dr. Rivera. He will follow her up in the office on Friday and schedule for outpatient upper endoscopy. We will continue Pepcid/famotidine 20 mg twice daily for the next 7 days and then as per directions of Dr. Rivera. She does have Carafate at home and she will initiate that tonight and this does appear to be stomach acid related and probably reflux. Discharged home with return precautions. Patient verbalize understanding instructions and agreement with plan. Diagnostic Imaging Diagonstic Imaging: Xray Plain Films/CT/US/NM/MRI: chest Comments [facility]. [place], [place] NAME: ALEJONI Danica [facility] REC#: [id number] PT STATUS: REG ER : 1975 PHYSICIAN: GHISLAINE NEAL MD ADMIT DATE: 04/13/20/ER Draft Date of Exam:04/13/20 CHEST PA/LAT (2 VIEW) INDICATION: Aspiration. Choking incident COMPARISON: 12/20/2019 FINDINGS: Frontal and lateral views of the chest demonstrate normal heart size and pulmonary vascularity. The lungs are clear. There are no signs of infiltrate, pleural effusions or pneumothoraces. The visualized osseous structures show no acute abnormalities. IMPRESSION: 1. No acute process. No signs of infiltrates, effusions or pneumothoraces. Dictated on workstation # [id number] Dict: 04/13/201920 Trans: 04/13/201927 BRIELLE [phone] Interpreted by: DEL PEREZ MD Electronically signed by: Departure Impression Primary Impression: Epigastric abdominal pain Additional Impression: GERD (gastroesophageal reflux disease) Qualified Codes: K21.9 - Gastro-esophageal reflux disease without esophagitis Disposition: HOME, SELF-CARE Condition: Stable Departure-Patient Inst. Decision time for Depature: 19:55 Referrals: LILIA RIVERA MD, JOHN D MD (PCP/Family) Primary Care Physician Patient Instructions: Acute Abdomen (Belly Pain), Adult (DC), Acid Reflux (Gastroesophageal Reflux Disease) During Add. Discharge Instructions: Continue home medications as previously prescribed. You should initiate the Carafate up to 4 times a day. Chew the tablet up into a slurry and then swallow as that will improve its performance. You may take Pepcid or the generic famotidine 20 mg twice daily for the next 7 days and then daily thereafter as needed for stomach upset. You may discuss this with Dr. Rivera as well. His office should call you tomorrow or first thing Friday morning for appointment for Friday and set up for upper endoscopy. You may call his office as well. Return for worse pain, fever, vomiting, weakness, recent problems, blood in your vomit or stool or other concerns as needed. Copy Copies To 1: LILIA RIVERA MD, TIMOTHY D MD Apr 13, 2020 18:34
[2020-04-13 18:50] LABS: BASOPHILS # (AUTO) 0.1 10^3/uL (0.0-0.1); BASOPHILS % (AUTO) 1 % (0-10); EOSINOPHILS # (AUTO) 0.6 10^3/uL (0.0-0.3); EOSINOPHILS % (AUTO) 5 % (0-10); HEMATOCRIT 41 % (35-52); LYMPHOCYTES % (AUTO) 24 % (12-44); MEAN CORPUSCULAR HEMOGLOBIN 29 PG (25-34); MEAN CORPUSCULAR HGB CONC 34 G/DL (32-36); MEAN CORPUSCULAR VOLUME 84 FL (80-99); MEAN PLATELET VOLUME 9.4 FL (7.4-10.4); MONOCYTES # (AUTO) 0.9 X 10^3 (0.0-1.0); MONOCYTES % (AUTO) 7 % (0-12); NEUTROPHILS # (AUTO) 8.2 X 10^3 (1.8-7.8); NEUTROPHILS % (AUTO) 64 % (42-75); PLATELET COUNT 391 10^3/uL (130-400); RED CELL DISTRIBUTION WIDTH 13.3 % (10.0-14.5); WHITE BLOOD COUNT 12.8 10^3/uL (4.3-11.0)
[2020-04-13 18:54] VITALS: BP 158/99
[2020-04-13 19:23] LABS: ALBUMIN 4.6 GM/DL (3.2-4.5); CHLORIDE 108 MMOL/L (98-107); POTASSIUM 3.6 MMOL/L (3.6-5.0); SODIUM 142 MMOL/L (135-145)
[2020-04-13 19:25] LABS: CALCIUM 9.2 MG/DL (8.5-10.1)
[2020-04-13 19:26] LABS: GLUCOSE 98 MG/DL (70-105); TOTAL PROTEIN 8.1 GM/DL (6.4-8.2)
[2020-04-13 19:27] LABS: CARBON DIOXIDE 22 MMOL/L (21-32)
[2020-04-13 19:28] LABS: BILIRUBIN,TOTAL 0.4 MG/DL (0.1-1.0)
[2020-04-13 19:29] LABS: ALKALINE PHOSPHATASE 99 U/L (40-136); CREATININE SERUM 0.91 MG/DL (0.60-1.30); GFR ESTIMATED > 60
--- NOTE | 2020-04-13 19:29 | Diagnostic Imaging Report ---
INDICATION: Aspiration. Choking incident COMPARISON: 12/20/2019 FINDINGS: Frontal and lateral views of the chest demonstrate normal heart size and pulmonary vascularity. The lungs are clear. There are no signs of infiltrate, pleural effusions or pneumothoraces. The visualized osseous structures show no acute abnormalities. IMPRESSION: 1. No acute process. No signs of infiltrates, effusions or pneumothoraces. Dictated by: Dictated on workstation # [id number]
[2020-04-13 19:30] LABS: BUN/CREATININE RATIO 11
[2020-04-13 19:32] LABS: ALANINE AMINOTRANSFERASE 52 U/L (0-55)
[2020-04-13 19:41] LABS: BILIRUBIN,URINE NEGATIVE (NEGATIVE); CLARITY,URINE CLEAR; COLOR,URINE YELLOW; GLUCOSE, URINE (UA) NEGATIVE (NEGATIVE); KETONES,URINE NEGATIVE (NEGATIVE); LEUKOCYTE ESTERASE ,URINE NEGATIVE (NEGATIVE); NITRITE,URINE NEGATIVE (NEGATIVE); PH,URINE 5.5 (5-9); PROTEIN,URINE 1+ (NEGATIVE)
[2020-04-13 19:57] LABS: AMORPHOUS SEDIMENT,UR MOD AMOR URATES /LPF; BACTERIA,URINE NEGATIVE /HPF
[2020-04-13 20:05] VITALS: BP 147/101
== END 2020-04-13 20:05 | disposition home or self-care (01) ==
LOC: EDUNIT# 17:18 → ER 17:19
DX: K21.9 Gastro-esophageal reflux disease without esophagitis (principal); Z88.1 Allergy status to other antibiotic agents; Z88.8 Allergy status to other drugs, medicaments and biological substances; Z87.891 Personal history of nicotine dependence; Z90.710 Acquired absence of both cervix and uterus
CPT/HCPCS: 36415; 71046; 80053; 81000; 85025

== ENCOUNTER 2020-04-17 13:28 | Day surgery (SDC) | payer OTHER ==
--- NOTE | 2020-04-14 20:35 | HISTORY AND PHYSICAL ---
DATE OF SERVICE: PROCEDURE DATE: 04/17/2020. ATTENDING PHYSICIAN: Dr. Gordillo. HISTORY OF PRESENT ILLNESS: The patient is a 44-year-old female, who is known to us. She has had issues with dysphagia for many years. On 05/29/2018, she underwent an EGD and was found to have hypertonic lower esophageal sphincter and underwent a balloon dilatation. She was also found to have a hiatal hernia. This was able to be dilated to 18 mm and then underwent an esophageal manometry study, which did show hypertonic lower esophageal sphincter consistent with an achalasia. She did undergo a repeat EGD and balloon dilatation on 06/17/2018, where again the hiatal hernia was noted. It was approximately 2 to 2.5 cm in size. She has been tried on medical management for her symptoms. She was then seen in the office on 12/14/2019 for recurrent pain in the epigastric region as well as left upper abdominal quadrant; however, also stated pain upon palpation of the right upper abdominal quadrant. She reports she continued to have reflux and regurgitation. She then underwent a repeat EGD with biopsy and balloon dilatation on 12/17/2019, where she was found to have reflux esophagitis stage II, no hiatal hernia and mild to moderate gastritis. No distal obstructions. Biopsies were negative for H. pylori as well as negative for Mooney's esophagus. She then underwent a gallbladder ultrasound, where she was found to have a gallbladder wall thickening. On 12/22/2019, she did undergo a laparoscopic cholecystectomy. She was found to have a mild gallbladder wall distention as well as multiple small gallstones. She reports today that she presented to the emergency room yesterday with complaints of choking on water and increased feeling of saliva in her mouth. She did report episodes of vomiting as well as epigastric pain and reports that she did even notice some blood when she vomited. She reports continued feeling like she has to clear her throat as well as episodes of reflux. She is currently on Dexilant daily as well as Protonix daily and Zantac for her heartburn. PAST MEDICAL HISTORY: Peptic ulcer disease, gastroesophageal reflux disease, achalasia, history of colon polyps and history of Mooney's esophagus in 2016. PAST SURGICAL HISTORY: Left knee arthroscopy 2014, right knee arthroscopy 2014, partial hysterectomy in 1998 and laparoscopic cholecystectomy November of 2019. ALLERGIES: BIAXIN and NIFEDIPINE. MEDICATIONS: 1. Dexilant 60 mg daily. 2. Zantac 150 mg b.i.d. 3. Protonix 40 mg daily. 4. Dicyclomine 20 mg q.6 hours. 5. Hydrocodone every 4 hours p.r.n. 6. Hyoscyamine 0.125 mg 1 to 2 tablets every 4 hours as needed. 7. Nitroglycerin 0.3 mg before meals. 8. Zofran 8 mg q.6 hours p.r.n. 9. Tramadol 50 mg q.4 hours p.r.n. SOCIAL HISTORY: Previous for smoke for 30 pack years, quit in 2012, positive for vaping. Rare for alcohol. FAMILY HISTORY: Mother, colon cancer and hypertension. Paternal grandfather, lung cancer. Paternal grandmother, stroke. REVIEW OF SYSTEMS: A well-nourished female, in no acute distress. She is not experiencing any shortness of breath or difficulty breathing. No chest pain, palpitations or diaphoresis. She does report episodes of nausea as well as vomiting with hematemesis. She does report epigastric pain with burning sensation. No diarrhea or constipation. No red blood per rectum. No dark tarry stools. No fever or chills. No recent inadvertent weight loss. All other review of systems negative. PHYSICAL EXAMINATION: VITAL SIGNS: Stable. Current weight is 196 pounds and height 5 feet 6 inches. CHEST: Clear. Good breath sounds bilaterally. HEART: Regular, no murmurs. EXTREMITIES: No lower extremity edema. Negative Homans sign. HEENT: No scleral icterus. NECK: No cervical lymphadenopathy. ABDOMEN: Soft and nondistended. There is some mild tenderness in the epigastric region upon palpation. No palpable masses. No organomegaly. No peritoneal signs. SKIN: Warm, dry and pink. NEUROLOGIC: Awake, alert and oriented x3. ASSESSMENT AND PLAN: A 44-year-old female with a history of gastroesophageal reflux disease, achalasia as well as esophageal strictures, who currently has peptic ulcer disease. At this time, she is instructed to continue her current PPI acid advertising sales consultant as well as Carafate 4 times a day. She will need to continue to avoid any spicy, greasy, acidic, caffeine and alcohol as well as tobacco products. We will proceed with scheduling her for EGD with biopsies as appropriate as well as a possible balloon dilatation. Job ID: [id number] DocumentID: [id number] Dictated Date: 04/14/2020 09:15:20 Window Trimmer Date: 04/14/2020 09:40:03 Dictated By: STEPHANIE POLANCO APRN
[~2020-04-17] VITALS: Ht 137 cm; Wt 89.0 kg
[2020-04-17] MEDS ORDERED: LACTATED RINGERS 1,000 ML IV STA (13:31)
[2020-04-17] MEDS ORDERED: LACTATED RINGERS 1,000 ML IV ONE (13:34)
[2020-04-17] MEDS ORDERED: proPOfol 200 MG/20 ML (DIPRIVAN) VIAL IV ONE ×2 (13:41→14:05)
[2020-04-17] MEDS ORDERED: MIDAZOLAM 2 MG/2 ML (VERSED) VIAL ONE ×2 (13:41→14:07)
[2020-04-17 13:43] VITALS: BP 162/102
[2020-04-17] MEDS ORDERED: HURRICAINE EXT TUBE (BENZOCAINE) XX PRN (13:45)
[2020-04-17] MEDS ORDERED: LIDOCAINE JELLY 2% 6 ML SYRINGE MM PRN (13:45)
[2020-04-17] MEDS ORDERED: HURRICAINE EXT TUBE (BENZOCAINE) ONE (13:51)
--- NOTE | 2020-04-17 13:56 | Progress Note-Pre Operative ---
Pre-Operative Progress Note H&P Reviewed The H&P was reviewed, patient examined and no changes noted. Date Seen by Provider: Apr 17, 2020 Time Seen by Provider: 13:45 Date H&P Reviewed: Apr 17, 2020 Time H&P Reviewed: 13:45 Pre-Operative Diagnosis: GERD, dysphagia LILIA MICHELLE MD Apr 17, 2020 13:56
--- NOTE | 2020-04-17 13:59 | Discharge Inst-Surgical ---
D/C Lap Instructions-VIVIANA Follow Up Appt in 6 weeks Activity as tolerated High Fiber Diet 25g or more per day Avoid Alcohol, Caffeine, Spicy [place] and Acid foods. Drink 64 fluid oz or more of fluids per day. Symptoms to Report: Fever over 101 degree F, Nausea/Vomiting If any problems/questions: Contact your physician or go to Emergency Room LILIA MICHELLE MD Apr 17, 2020 13:58
[2020-04-17] MEDS ORDERED: ACETAMINOPHEN 325 MG TABLET PO PRN (14:00)
[2020-04-17] MEDS ORDERED: morphine INJ 10 MG/ML 1ML (SYR OR VIAL) IVP PRN ×2 (14:00)
[2020-04-17] MEDS ORDERED: ONDANSETRON 4 MG/2 ML (SDV) Z0FRAN IVP PRN (14:00)
[2020-04-17] MEDS ORDERED: HYDROcodone/APAP 5 MG/325 MG (LORTAB) TAB PO PRN (14:00)
[2020-04-17] MEDS ORDERED: LIDOCAINE JELLY 2% 6 ML SYRINGE ONE (14:02)
[2020-04-17] MEDS ORDERED: KETAMINE/NaCl 50 MG/5 ML SYRINGE (ED ONLY) ONE (14:07)
[2020-04-17 14:30] VITALS: BP 133/67
[2020-04-17 14:35] VITALS: BP 122/72
--- NOTE | 2020-04-17 14:38 | Anesthesia-General Post-Op ---
MAC Patient Condition Mental Status/LOC: Same as Preop Cardiovascular: Satisfactory Nausea/Vomiting: Absent Respiratory: Satisfactory Pain: Controlled Complications: Absent Post Op Complications Complications None Follow Up Care/Instructions Patient Instructions None needed. Anesthesiology Discharge Order Discharge Order Patient is doing well, no complaints, stable vital signs, no apparent adverse anesthesia problems. HUSAM PAUL DO Apr 17, 2020 14:38
[2020-04-17 14:40] VITALS: BP_SYST 123; BP_SYST 131; BP_DIAS 76; BP_DIAS 81
--- NOTE | 2020-04-17 14:50 | Progress Note-Post Operative ---
Post-Operative Progess Note Surgeon (s)/Principal Java Developer (s) Surgeon LILIA MICHELLE MD Principal Java Developer: none Pre-Operative Diagnosis GERD, dysphagia Post-Operative Diagnosis reflux esophagitis(stage 2), achalasia, small HH(2cm), moderate gastritis. Procedure & Operative Findings Date of Procedure 04/17/20 Procedure Performed/Findings EGD with bx and balloon dilatation. Anesthesia Type mac Estimated Blood Loss Estimated blood loss (mL): minimal Specimens/Packing Specimens Removed ge jxn, antrum LILIA MICHELLE MD Apr 17, 2020 14:50
[2020-04-17 15:08] VITALS: BP 130/85
[2020-04-17 15:09] VITALS: BP 130/85
--- NOTE | 2020-04-18 01:19 | OPERATIVE REPORT ---
DATE OF SERVICE: 04/17/2020 ATTENDING PRIMARY CARE PHYSICIAN: Bonilla Gordillo MD PREOPERATIVE DIAGNOSES: Achalasia and dysphagia. POSTOPERATIVE DIAGNOSES: Achalasia, reflux esophagitis stage II, small hiatal hernia approximately 2 cm in size. Moderate gastritis. PROCEDURE: EGD with biopsy and balloon dilatation. SURGEON: Lilia Michelle MD ANESTHESIA: Monitored anesthesia care. ESTIMATED BLOOD LOSS: Minimal. FINDINGS: Same as postoperative diagnoses. DISPOSITION: The patient tolerated the procedure well. INDICATIONS: The patient is a 44-year-old female known to us. She has had dysphagia for many years. We had done an EGD on her in 05/2018. She was found to have a hypertonic lower esophageal sphincter and she underwent a dilatation to 18 mm in diameter. She has had recurrent dysphagia 11/2019 and underwent another balloon dilatation. During this process also in 11/2019, she did have pain in the right upper abdominal quadrant, was found to have gallstones and underwent a laparoscopic cholecystectomy. She was seen in the Emergency Department with significant dysphagia. DESCRIPTION OF PROCEDURE: The patient was brought to the endoscopy suite, laid in the left lateral decubitus position with head slightly elevated. After adequate IV pain and sedative medications and monitored anesthesia care, the mouthpiece was applied. The endoscope was placed in the mouth, visualizing the pharynx and hypopharyngeal region. Vocal cords, epiglottis and vallecula identified and appeared to be normal. The endoscope was then gently intubated. Esophageal opening and esophagus insufflated. The endoscope was then advanced to the first, second and third portion of esophagus at the level of the GE junction. A reflux esophagitis stage II identified. There was also what appeared to be a hypertonic lower esophageal sphincter. A biopsy was taken of the GE junction with forceps to visualization of good hemostasis. The endoscope was then advanced into the stomach and endoscope retroflexed, visualizing a small hiatal hernia approximately 2 cm in size. There was a moderate severity gastritis with some small superficial erosions of the antrum. A biopsy was taken of the antrum with forceps with visualization of good hemostasis. The endoscope was then advanced to the pylorus and the first and second portion of the duodenum, which appeared normal with no distal obstructions. We then proceeded with dilatation of the lower esophageal sphincter by placing the balloon into the stomach and pulled back to the area of the sphincter. We first proceeded to 2 and then 4 atmospheres of pressure with minimal resistance. We then proceeded to 6 atmospheres of pressure at 20 mm in luminal diameter and with moderate resistance left this in place for approximately 60 seconds. The balloon was then desufflated and then removed with visualization of good hemostasis as well as no mucosal tears. The endoscope was then slowly withdrawn while taking a second look and suctioning of residual air with no additional findings. The patient tolerated the procedure well. It appears that she does have a significant achalasia based on her difficulty in swallowing; however, she continues to have risk factors, which include nicotine products. She is currently on 2 different acid reducers and continued to be symptomatic. We feel that the next step would most likely entail having an esophageal manometry study to look for esophageal dysmotility disorders as well as for verification of achalasia. If this is a definitive diagnosis as she will need continued graded dilatation with a larger balloon on a graded fashion versus a referral to gastroenterology for botulin toxin injection. Job ID: [id number] DocumentID: [id number] Dictated Date: 04/17/2020 14:45:23 Health Policy Manager Date: 04/18/2020 01:19:05 Dictated By: LILIA MICHELLE MD MTDD
== END 2020-04-17 15:12 | disposition home or self-care (01) ==
LOC: ENDO 13:28
PROVIDERS: ATTEND Surgery
DX: K22.0 Achalasia of cardia (principal); K21.0 Gastro-esophageal reflux disease with esophagitis; K29.50 Unspecified chronic gastritis without bleeding; K44.9 Diaphragmatic hernia without obstruction or gangrene; Z79.899 Other long term (current) drug therapy; Z88.1 Allergy status to other antibiotic agents; Z88.8 Allergy status to other drugs, medicaments and biological substances; Z87.11 Personal history of peptic ulcer disease; Z86.010 Personal history of colon polyps; Z87.19 Personal history of other diseases of the digestive system; Z87.891 Personal history of nicotine dependence; Z90.49 Acquired absence of other specified parts of digestive tract; Z90.711 Acquired absence of uterus with remaining cervical stump; Z80.0 Family history of malignant neoplasm of digestive organs; Z82.49 Family history of ischemic heart disease and other diseases of the circulatory system; Z80.1 Family history of malignant neoplasm of trachea, bronchus and lung; Z82.3 Family history of stroke

== ENCOUNTER 2020-05-29 08:00 | Outpatient (RCR) | payer OTHER ==
[~2020-05-29 08:00] MED LIST changes: -PANT40TA3 PO; +PANT40TA52 PO
== END 2020-08-27 | disposition home or self-care (01) ==
LOC: CARD 08:00
PROVIDERS: ATTEND Internal Medicine
DX: R00.2 Palpitations (principal)
CPT/HCPCS: 93225; 93226

== ENCOUNTER → 2020-07-11 | Outpatient (CLI) | payer OTHER ==
[~2020-07-11] MED LIST changes: +PANT40TA3 PO; -PANT40TA52 PO
[2020-07-11 08:49] LABS: ALANINE AMINOTRANSFERASE 32 U/L (0-55); ALBUMIN 4.1 GM/DL (3.2-4.5); ALKALINE PHOSPHATASE 76 U/L (40-136); BILIRUBIN,TOTAL 0.6 MG/DL (0.1-1.0); BUN/CREATININE RATIO 18; CALCIUM 8.8 MG/DL (8.5-10.1); CARBON DIOXIDE 26 MMOL/L (21-32); CHLORIDE 105 MMOL/L (98-107); CREATININE SERUM 0.84 MG/DL (0.60-1.30); GFR ESTIMATED > 60; GLUCOSE 99 MG/DL (70-105); SODIUM 139 MMOL/L (135-145); TOTAL PROTEIN 7.4 GM/DL (6.4-8.2)
== END ==
LOC: CARD 08:08
PROVIDERS: ATTEND Internal Medicine Cardiovascular Disease
DX: I34.0 Nonrheumatic mitral (valve) insufficiency (principal); I11.9 Hypertensive heart disease without heart failure; I47.1 Supraventricular tachycardia; K31.89 Other diseases of stomach and duodenum; Z87.891 Personal history of nicotine dependence
CPT/HCPCS: 36415; 80053; 93306; 93351

== ENCOUNTER 2020-07-17 13:55 | Outpatient (CLI) | payer OTHER ==
[~2020-07-17 13:55] MED LIST changes: -PANT40TA3 PO; +PANT40TA52 PO
== END 2020-07-17 14:07 | disposition home or self-care (01) ==
LOC: SLEEP 13:55
PROVIDERS: ATTEND Nurse Practitioner
DX: G47.33 Obstructive sleep apnea (adult) (pediatric) (principal); I49.9 Cardiac arrhythmia, unspecified

== ENCOUNTER → 2020-12-26 | Outpatient (CLI) | payer OTHER | LOC: LABNPT 08:19 | PROVIDERS: ATTEND Internal Medicine Gastroenterology | DX: Z20.822 Contact with and (suspected) exposure to COVID-19 (principal) | CPT/HCPCS: 87635 ==

== ENCOUNTER → 2021-04-23 | Outpatient (CLI) | payer OTHER | LOC: LABNPT 13:37 | DX: Z20.822 Contact with and (suspected) exposure to COVID-19 (principal) | CPT/HCPCS: 87635 ==

== ENCOUNTER → 2021-06-07 | Outpatient (CLI) | payer OTHER ==
[~2021-06-07] MED LIST changes: +GADOBUTROL 10 MMOL/10 ML (GADAVIST) VIAL IV ONE
--- NOTE | 2021-06-07 15:49 | Diagnostic Imaging Report ---
PROCEDURE: MRI upper extremity any joint with and without contrast left. TECHNIQUE: Multiplanar, multisequence pre and post contrast-enhanced MRI of the left upper extremity was accomplished. INDICATION: Left shoulder mass. COMPARISON: None available. FINDINGS: A skin marker is placed on the anterior aspect of the left shoulder to demarcate the site of palpable concern. At this region, there is a ovoid circumscribed fatty mass that likely arises from the medial margin of the deltoid muscle but extends medially and superiorly from the muscle, itself. A few fascicles of the deltoid transverse the mass, but there is no irregular enhancing septation. Overall, this mass measures 4.1 x 2.9 x 2.8 cm (transverse x AP x craniocaudal). No additional soft tissue mass is present. Rotator cuff is normal in bulk. There is no tear in the supraspinatus, infraspinatus, teres minor or subscapularis. Long head of biceps intact. No para-labral cyst or displaced labral tear. No glenohumeral joint effusion. AC joint has minimal degenerative capsular hypertrophy. Glenohumeral alignment is normal with faint mild osteoarthritis present. 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 There are no imaging features that would be suspicious for high-grade liposarcoma. If this continues to increase in size, this may represent an atypical lipomatous tumor for which a surgical consultation would be suggested for further management. Dictated by: Dictated on workstation # [id number]
== END ==
LOC: RAD 13:12
PROVIDERS: ATTEND Orthopaedic Surgery
DX: D17.22 Benign lipomatous neoplasm of skin and subcutaneous tissue of left arm (principal)
CPT/HCPCS: 73223

== ENCOUNTER 2021-08-08 08:02 | Day surgery (SDC) | payer OTHER ==
--- NOTE | 2021-07-23 11:24 | HISTORY AND PHYSICAL ---
DATE OF SERVICE: ADMISSION HISTORY AND PHYSICAL This will be for outpatient surgery on 08/08/2021 for left shoulder lipoma excision. HISTORY OF PRESENT ILLNESS: The patient is a 46-year-old right hand dominant female who has noticed a mass in the anterior aspect of her left shoulder, which has become painful. She underwent an MRI, which revealed evidence of a lipoma without any malignant appearing findings. Due to pain and increase in size, the patient has elected to proceed with surgical intervention. REVIEW OF SYSTEMS: No chest pain, no shortness of breath, no dysuria. PAST MEDICAL HISTORY: Anxiety disorder, mitral valve prolapse, palpitations, hypertension, ulcers. PAST SURGICAL HISTORY: Hysterectomy, right shoulder arthroscopy, tonsillectomy, EGD, right knee arthroscopy. SOCIAL HISTORY: The patient denies alcohol and tobacco use. FAMILY HISTORY: Significant for ischemic heart disease. PRIMARY CARE PROVIDER: Dr. Gordillo. MEDICATIONS: Ibuprofen, Toprol, lisinopril, Protonix. ALLERGIES: BIAXIN. PHYSICAL EXAMINATION: GENERAL: The patient is well-developed, well-nourished, in no acute distress. HEENT: Normocephalic, atraumatic. Pupils are equal, round and reactive to light. Oropharynx is clear. NECK: Supple, without lymphadenopathy. LUNGS: Clear to auscultation bilaterally. HEART: Regular rate and rhythm. ABDOMEN: Soft, nontender, nondistended. EXTREMITIES: There is a 3 x 3 cm mass in the anterior aspect of her shoulder just distal to the clavicle and medial to the acromioclavicular joint. This was tender and reproduces her symptoms. She has full shoulder elevation, external and internal rotation actively. IMPRESSION: Left shoulder lipoma. PLAN: Left shoulder lipoma excision. The risks, benefits, options, ramifications and recovery have been discussed at length with the patient. She understands and wishes to proceed. Job ID: [id number] DocumentID: [id number] Dictated Date: 07/23/2021 10:57:38 Forklift Wheel Loader Date: 07/23/2021 11:23:37 Dictated By: MEGHA PATRICK MD
[~2021-08-08] VITALS: Ht 167.7 cm; Wt 97.6 kg
[2021-08-08] VITALS (11 sets, daily range): BP systolic 133–148; BP diastolic 61–83
[~2021-08-08 08:02] MED LIST changes: +BACL10TA PO; -GADOBUTROL 10 MMOL/10 ML (GADAVIST) VIAL IV ONE; +HYDROcodone/APAP 7.5 MG/325 MG (LORTAB, LORCET PLUS) TABLET PO PRN; +IBUP-2473 PO; +LISI10TA25 PO; +METO100T6 PO
[2021-08-08] MEDS ORDERED: ceFAZolin INJECTION 1,000 MG in WATER (STERILE) FOR INJECTION 10 ML IV ONE (08:15)
[2021-08-08] MEDS ORDERED: LACTATED RINGERS 1,000 ML IV PRN (08:15)
[2021-08-08] MEDS ORDERED: fentaNYL INJ 100 MCG/2 ML AMP ONE (09:09)
[2021-08-08] MEDS ORDERED: MIDAZOLAM 2 MG/2 ML (VERSED) VIAL ONE (09:09)
--- NOTE | 2021-08-08 09:22 | Progress Note-Pre Operative ---
Pre-Operative Progress Note H&P Reviewed The H&P was reviewed, patient examined and no changes noted. Date Seen by Provider: Aug 08, 2021 Time Seen by Provider: 09:15 Date H&P Reviewed: Aug 08, 2021 Time H&P Reviewed: 07:11 Pre-Operative Diagnosis: left shoulder lipoma MEGHA PATRICK MD Aug 08, 2021 09:22
--- NOTE | 2021-08-08 09:24 | Progress Note-Post Operative ---
Post-Operative Progess Note Surgeon (s)/Small Package And Bundle Sorter Clerk (s) Surgeon MEGHA PATRICK MD Small Package And Bundle Sorter Clerk: Lamont Krishnan Pre-Operative Diagnosis left shoulder lipoma Post-Operative Diagnosis left shoulder lipoma Procedure & Operative Findings Date of Procedure 08/08/21 Procedure Performed/Findings left shoulder lipoma excision Anesthesia Type GETA Estimated Blood Loss Estimated blood loss (mL): minimal Specimens/Packing Specimens Removed lipoma Packing: none MEGHA PATRICK MD Aug 08, 2021 09:24
[2021-08-08] MEDS ORDERED: BUPIVACAINE 0.25% 30 ML (SENSORCAINE) VIAL ONE (09:33)
[2021-08-08] MEDS ORDERED: ONDANSETRON 4 MG/2 ML (SDV) Z0FRAN ONE (09:59)
[2021-08-08] MEDS ORDERED: LIDOCAINE PF 2% 5 ML (XYLOCAINE) VIAL ONE (09:59)
[2021-08-08] MEDS ORDERED: proPOfol 200 MG/20 ML (DIPRIVAN) VIAL IV ONE (09:59)
[2021-08-08] MEDS ORDERED: SEVOFLURANE (ULTANE) 15 ML INHAL SOLN ONE ×2 (10:00→10:05)
[2021-08-08] MEDS ORDERED: morphine INJ 10 MG/ML 1ML (SYR OR VIAL) ONE (10:41)
[2021-08-08] MEDS ORDERED: morphine INJ 10 MG/ML 1ML (SYR OR VIAL) IVP STA (10:42)
--- NOTE | 2021-08-08 13:34 | Anesthesia-General Post-Op ---
General Patient Condition Mental Status/LOC: Same as Preop Cardiovascular: Satisfactory Nausea/Vomiting: Absent Respiratory: Satisfactory Pain: Controlled Complications: Absent Post Op Complications Complications None Follow Up Care/Instructions Patient Instructions None needed. Anesthesia/Patient Condition Patient Condition Patient is doing well, no complaints, stable vital signs, no apparent adverse anesthesia problems. No complications reported per nursing. CAROLE CERON CRNA Aug 08, 2021 13:34
--- NOTE | 2021-08-08 15:26 | OPERATIVE REPORT ---
DATE OF SERVICE: 08/08/2021 PREOPERATIVE DIAGNOSIS: Left shoulder lipoma. POSTOPERATIVE DIAGNOSIS: Left shoulder lipoma. PROCEDURE: Left shoulder lipoma excision. SURGEON: Arik Patrick MD CABINETMAKER HELPER: Lamont Krishnan, who assisted throughout the procedure and closed the incision. ANESTHESIA: General endotracheal by Tiff Davis CRNA. ESTIMATED BLOOD LOSS: Minimal. DRAINS: None. COMPLICATIONS: None. SPECIMEN: Sent. POSTOPERATIVE PLAN: Early range of motion. The patient was transferred to the recovery room awake and stable condition. STATEMENT OF MEDICAL NECESSITY: The patient is a 46-year-old right hand dominant female with complaints of a mass in the anterior aspect of her left shoulder. This is in the area of the deltopectoral interval. An MRI was obtained, which revealed a benign-appearing lipomatous mass. The patient was counseled regarding treatment options, but reported tenderness over the mass and elected to proceed with surgical excision. DESCRIPTION OF PROCEDURE: After risks and benefits of procedure were discussed and questions were answered, an informed consent was signed and placed on chart, the operative site was confirmed in the preoperative holding area initialed by the surgeon. The patient was then transferred to the operating room and after adequate levels of general endotracheal anesthetic were obtained, a timeout was called, confirming the operative site. The left shoulder and chest wall were prepped and draped in the usual sterile fashion. An incision was made in line with the deltopectoral interval. Meticulous hemostasis was obtained. The mass was identified deep to the fascia, but superficial to the deltoid and pectoralis. This was in the actual area of the deltopectoral interval and cephalic vein. This was very well demarcated and was excised without difficulty. There was no necrotic tissue and no gross abnormalities noted. This measured 5 x 3.5 cm in size. This was sent for pathologic examination. Further hemostasis was obtained with cautery. The wound was copiously irrigated, 3-0 Vicryl was used to reapproximate subcutaneous tissue and skin was closed with 4-0 Vicryl in a subcuticular fashion. Incision was infiltrated with plain Marcaine. A soft dressing was applied. The patient was transferred to the recovery room awake and in stable condition. Job ID: [id number] DocumentID: [id number] Dictated Date: 08/08/2021 10:05:38 Orthopedic Shoes Salesperson Date: 08/08/2021 15:25:54 Dictated By: ARIK PATRICK MD
== END 2021-08-08 12:10 | disposition home or self-care (01) ==
LOC: SDC 08:02
PROVIDERS: ATTEND Orthopaedic Surgery
DX: D17.22 Benign lipomatous neoplasm of skin and subcutaneous tissue of left arm (principal); F41.9 Anxiety disorder, unspecified; I34.1 Nonrheumatic mitral (valve) prolapse; I10 Essential (primary) hypertension; R00.2 Palpitations; K27.9 Peptic ulcer, site unspecified, unspecified as acute or chronic, without hemorrhage or perforation; F17.290 Nicotine dependence, other tobacco product, uncomplicated; Z82.49 Family history of ischemic heart disease and other diseases of the circulatory system; Z79.899 Other long term (current) drug therapy; Z88.8 Allergy status to other drugs, medicaments and biological substances; Z11.2 Encounter for screening for other bacterial diseases
CPT/HCPCS: 87081

== ENCOUNTER → 2022-04-04 | Outpatient (CLI) | payer OTHER ==
[~2022-04-04] MED LIST changes: +DICY20TA PO; -DICY20TA10 PO; -HYDROcodone/APAP 7.5 MG/325 MG (LORTAB, LORCET PLUS) TABLET PO PRN
--- NOTE | 2022-04-04 09:51 | Diagnostic Imaging Report ---
INDICATION: Routine screening. COMPARISON: 12/17/2019 and 12/15/2018. TECHNIQUE: 2D and 3D bilateral screening mammography was performed with CAD. FINDINGS: Both breasts are heterogeneously dense, limiting the sensitivity of mammography. No dominant mass or malignant-appearing microcalcifications are seen. The axillae are unremarkable. IMPRESSION: No mammographic features suspicious for malignancy are identified. ACR BI-RADS Category 1: Negative. Result letter will be mailed to the patient. Note: At least 10% of breast cancer is not imaged by mammography. Dictated by: Dictated on workstation # [id number]
== END ==
LOC: RAD 07:45
PROVIDERS: ATTEND Obstetrics & Gynecology
DX: Z12.31 Encounter for screening mammogram for malignant neoplasm of breast (principal)
CPT/HCPCS: 77063; 77067

== ENCOUNTER 2022-04-30 15:13 | Emergency (ER) | payer OTHER ==
[~2022-04-30] VITALS: Ht 167 cm; Wt 95.0 kg
[2022-04-30 15:53] LABS: BASOPHILS # (AUTO) 0.1 10^3/uL (0.0-0.1); BASOPHILS % (AUTO) 1 % (0-10); EOSINOPHILS # (AUTO) 0.2 10^3/uL (0.0-0.3); EOSINOPHILS % (AUTO) 2 % (0-10); HEMATOCRIT 40 % (35-52); HEMOGLOBIN 13.1 g/dL (11.5-16.0); LYMPHOCYTES # (AUTO) 2.6 10^3/uL (1.0-4.0); LYMPHOCYTES % (AUTO) 22 % (12-44); MEAN CORPUSCULAR HEMOGLOBIN 29 pg (25-34); MEAN CORPUSCULAR HGB CONC 33 g/dL (32-36); MEAN CORPUSCULAR VOLUME 87 fL (80-99); MEAN PLATELET VOLUME 9.4 fL (9.0-12.2); MONOCYTES # (AUTO) 0.8 10^3/uL (0.0-1.0); MONOCYTES % (AUTO) 7 % (0-12); NEUTROPHILS # (AUTO) 7.9 10^3/uL (1.8-7.8); NEUTROPHILS % (AUTO) 67 % (42-75); PLATELET COUNT 295 10^3/uL (130-400); WHITE BLOOD COUNT 11.7 10^3/uL (4.3-11.0)
--- NOTE | 2022-04-30 16:01 | ED Cardiac General ---
History of Present Illness General Chief Complaint: Cardiac/General Problems Stated Complaint: HYPERTENSION Nursing Triage Note: SEVERE HEADACHE AND HYPERTENSION X2 HOURS. ARRIVED BY EMS. 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 Source: patient Exam Limitations: no limitations History of Present Illness Date Seen by Provider: Apr 30, 2022 Time Seen by Provider: 15:30 Initial Comments Patient to the ER by EMS from her workplace with her significant other with chief complaint about 2 hours ago she had started getting a headache mostly in her frontal crown area feel that a band around her head. She measured her blood pressure and was 180/100. She has a history of hypertension hyperlipidemia on Lipitor, metoprolol and lisinopril. She takes her medications at night she has not missed any doses. She is followed by Dr. Nam for primary care. She has no history of heart disease or stroke. She is having no numbness weakness visual changes loss control of bowel or bladder, falls, loss of balance, facial droop or slurring of speech. She has no personal or family history of early onset coronary disease or CVA. She does not have diabetes and quit smoking 6 or 7 years ago. She does occasionally still vape with nicotine. She does not use recreational drugs. She is had no trauma to her head. She is not having any fevers chills nausea vomiting diarrhea or recent sickness. EMS gave her 2 tablets of aspirin 81 mg on route. She is not having any chest pain. She feels some tightness in her jaw but no pain in her jaw or chest. She does occasionally get migraine headaches but does not take anything routinely to prevent them or treat them. Allergies and Home Medications Allergies Coded Allergies: clarithromycin (Verified Allergy, Unknown, HIVES, 01/17/16) Patient Home Medication List Home Medication List Reviewed: Yes Baclofen (Baclofen) 10 Mg Tablet, 10 MG PO [facility], (Reported) Entered as Reported by: JABIER TOMLIN on 07/24/21 143 Ibuprofen (Ibuprofen) 200 Mg Tablet, 800 MG PO BID, (Reported) Entered as Reported by: JABIER TOMLIN on 07/24/21 1430 Lisinopril (Lisinopril) 10 Mg Tablet, 10 MG PO DAILY, (Reported) Entered as Reported by: JABIER TOMLIN on 07/24/21 1430 Metoprolol Succinate (Toprol Xl) 100 Mg Tab.er.24h, 100 MG PO HS, (Reported) Entered as Reported by: JABIER TOMLIN on 07/24/21 1430 Pantoprazole Sodium (Protonix) 40 Mg Tablet.dr, 80 MG PO BID, (Reported) Entered as Reported by: JABIER TOMLIN on 07/24/21 1430 Review of Systems Review of Systems Constitutional: No chills, No diaphoresis EENTM: No Blurred Vision, No Double Vision Respiratory: Denies Cough, Denies Shortness of Air Cardiovascular: Denies Chest Pain, Denies Edema, Denies Irregular Heart Rate, Denies Lightheadedness, Denies Palpitations, Denies Syncope Gastrointestinal: Denies Abdominal Pain, Denies Constipated, Denies Diarrhea, Denies Nausea Genitourinary: Denies Burning, Denies Discharge All Other Systems Reviewed Negative Unless Noted: Yes Past Qaupfcw-Bshqry-Enkwgy Hx Patient Social History Tobacco Use?: No Use of E-Cig and/or Vaping dev: Yes Substance use?: No Alcohol Use?: Yes Alcohol Frequency: Rarely Immunizations Up To Date Tetanus Booster (TDap): More than 5yrs First/Initial COVID19 Vaccinat: NO Seasonal Allergies Seasonal Allergies: No Past Medical History Surgeries: Yes (BILAT KNEE SCOPES; EGD 12/17/19; HYST/OVARIES INTACT; R SHOULDER) Adenoidectomy, Hysterectomy, Orthopedic, Tonsillectomy Respiratory: Yes (+ TB SKIN TEST--S/P INH TREATMENT) Currently Using CPAP: No Currently Using BIPAP: No Cardiac: Yes (BRIEF WIDE COMPLEX TACHYCARDIA ON HOLTER--HAD NORMAL CARDIAC CATH 05/2012) Hypertension Neurological: No Headaches /Migraines Reproductive Disorders: Yes Female Reproductive Disorders: Menstrual Problems 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 Sexually Transmitted Disease: No HIV/AIDS: No Genitourinary: No Gastrointestinal: Yes (DYSPHAGIA; CHRONIC ABDOMINAL PAIN/GI ISSUES) Gastroesophageal Reflux, Mooney's Esophagus, Hiatal Hernia, Ulcer Musculoskeletal: Yes (RIGHT SHOULDER SURGERY/CHRONIC BURSITIS; BILATERAL KNEE SCOPES) Arthritis, Scoliosis, Chronic Back Pain Endocrine: No HEENT: Yes (WEARS GLASSES) Dysphagia Loss of Vision: Bilateral Hearing Impairment: Denies Cancer: No Psychosocial: No Integumentary: No Blood Disorders: No Adverse Reaction/Blood Tranf: No (N/A) Family Medical History Patient reports no known family medical history. Cancer PSH: -RIGHT SHOULDER-SCOPE WITH ACROMIOPLASTY AND RESECTION OF DISTAL RIGHT CLAVICLE -BILATERAL KNEE SCOPES -HYST/OVARIES INTACT -CARDIAC CATH 05/2012--NORMAL -MULTIPLE EGD'S /COLONOSCOPIES Physical Exam Vital Signs Vital Signs - First Documented 04/30/22 15:26 Temp 36.8 Pulse 78 Resp 16 B/P (MAP) 147/117 (127) Pulse Ox 93 O2 Delivery Room Air Capillary Refill : Less Than 3 Seconds Height, Weight, BMI Height: 5'6.00" Weight: 196lbs. 0.0oz. [id number]; 34.00 BMI Method:Stated General Appearance: No Apparent Distress, WD/WN HEENT: PERRL/EOMI, TMs Normal, Normal ENT Inspection, Pharynx Normal, Moist Mucous Membranes Neck: Full Range of Motion, Normal Inspection, Non Tender, Supple Respiratory: Lungs Clear, Normal Breath Sounds, No Accessory Muscle Use, No Respiratory Distress Cardiovascular: Regular Rate, Rhythm, No Edema, No JVD, No Murmur, Normal P eripheral Pulses Extremity: Normal Capillary Refill, Normal Inspection, No Pedal Edema Neurologic/Psychiatric: Alert, Oriented x3, No Motor/Sensory Deficits, Normal Mood/Affect, interface developer II-XII Norm as Tested Progress/Results/Core Measures Results/Orders Lab Results Laboratory Tests Test 04/30/22 15:48 04/30/22 16:00 Range/Units White Blood Count 11.7 H 4.3-11.0 10^3/uL Red Blood Count 4.59 3.80-5.11 10^6/uL Hemoglobin 13.1 11.5-16.0 g/dL Hematocrit 40 35-52 % Mean Corpuscular Volume 87 80-99 fL Mean Corpuscular Hemoglobin 29 25-34 pg Mean Corpuscular Hemoglobin Concent 33 32-36 g/dL Red Cell Distribution Width 12.7 10.0-14.5 % Platelet Count 295 130-400 10^3/uL Mean Platelet Volume 9.4 9.0-12.2 fL Immature Granulocyte % (Auto) 0 % Neutrophils (%) (Auto) 67 42-75 % Lymphocytes (%) (Auto) 22 12-44 % Monocytes (%) (Auto) 7 0-12 % Eosinophils (%) (Auto) 2 0-10 % Basophils (%) (Auto) 1 0-10 % Neutrophils # (Auto) 7.9 H 1.8-7.8 10^3/uL Lymphocytes # (Auto) 2.6 1.0-4.0 10^3/uL Monocytes # (Auto) 0.8 0.0-1.0 10^3/uL Eosinophils # (Auto) 0.2 0.0-0.3 10^3/uL Basophils # (Auto) 0.1 0.0-0.1 10^3/uL Immature Granulocyte # (Auto) 0.0 0.0-0.1 10^3/uL Sodium Level 137 135-145 MMOL/L Potassium Level 3.8 3.6-5.0 MMOL/L Chloride Level 104 98-107 MMOL/L Carbon Dioxide Level 21 21-32 MMOL/L Anion Gap 12 5-14 MMOL/L Blood Urea Nitrogen 13 7-18 MG/DL Creatinine 0.73 0.60-1.30 MG/DL Estimat Glomerular Filtration Rate 101 BUN/Creatinine Ratio 18 Glucose Level 93 70-105 MG/DL Calcium Level 9.1 8.5-10.1 MG/DL Corrected Calcium 8.9 8.5-10.1 MG/DL Total Bilirubin 0.6 0.1-1.0 MG/DL Aspartate Amino Transf (AST/SGOT) 35 H 5-34 U/L Alanine Aminotransferase (ALT/SGPT) 55 0-55 U/L Alkaline Phosphatase 96 40-136 U/L Troponin I < 0.028 <0.028 NG/ML C-Reactive Protein High Sensitivity 0.49 0.00-0.50 MG/DL Total Protein 7.5 6.4-8.2 GM/DL Albumin 4.2 3.2-4.5 GM/DL Urine Color YELLOW Urine Clarity CLEAR Urine pH 6.0 5-9 Urine Specific Arnold >=1.030 1.016-1.022 Urine Protein NEGATIVE NEGATIVE Urine Glucose (UA) NEGATIVE NEGATIVE Urine Ketones 1+ H NEGATIVE Urine Nitrite NEGATIVE NEGATIVE Urine Bilirubin NEGATIVE NEGATIVE Urine Urobilinogen 1.0 < = 1.0 MG/DL Urine Leukocyte Esterase NEGATIVE NEGATIVE Urine RBC (Auto) 2+ H NEGATIVE Urine RBC 5-10 H /HPF Urine WBC 2-5 /HPF Urine Squamous Epithelial Cells 5-10 /HPF Urine Renal Epithelial Cells NONE /HPF Urine Crystals NONE /LPF Urine Bacteria LARGE H /HPF Urine Casts NONE /LPF Urine Mucus LARGE H /LPF Urine Culture Indicated YES My Orders Orders - WILBER [facility]INCLAIR Ekg Tracing (04/30/22 15:19) Cbc With Automated Diff (04/30/22 15:34) Comprehensive Metabolic Panel (04/30/22 15:34) Hs C Reactive Protein (04/30/22 15:34) Ua Culture If Indicated (04/30/22 15:34) Urine Bedside (04/30/22 15:34) Ketorolac Injection (Toradol Injection) (04/30/22 16:15) Troponin I Primo (04/30/22 16:10) Urine Culture (04/30/22 16:00) Medications Given in ED Current Medications Medications Dose Ordered Sig/Yasmin Route Start Time Stop Time Status Last Admin Dose Admin Ketorolac Tromethamine 30 mg ONCE ONCE IVP 04/30/22 16:15 04/30/22 16:16 DC 04/30/22 16:10 30 MG Vital Signs/I&O 04/30/22 15:26 Temp 36.8 Pulse 78 Resp 16 B/P (MAP) 147/117 (127) Pulse Ox 93 O2 Delivery Room Air Blood Pressure Mean: 127 Progress Progress Note #1: Time: 16:07 Progress Note Patient is neurologically intact and describes a tension headache. Her blood pressure on arrival was 147 and is already down to 143 systolic. No intervention for her blood pressure at this time as necessary other than to treat her headache which is probably the source of her elevated blood pressure. We did review her risk factors for long-term stroke and heart disease with her and made some recommendations that she continue taking her medications and following with Dr. Nam. Questions were answered. We will check some basic labs and if there is no significant elevation of markers of inflammation then we will let her go home. We did discuss the possibility of a virus causing a tension headache and recommended a COVID swab which she declined. We did discuss return precautions if she experienced any neurologic symptoms. 30 mg Toradol IV. Progress Note #2: Time: 16:56 Progress Note Labs are okay. Patient's symptoms are improving. Blood pressure is 125 systolic over 86 diastolic. She is ready to go home. She has some incidental noted asymptomatic microscopic hematuria. We have encouraged to follow-up in 1 to 2 weeks with primary care to repeat a urinalysis and see if it goes away. Return precautions were discussed. She has had no material deterioration during her ER stay Initial ECG Impression Date: Apr 30, 2022 Initial ECG Impression Time: 15:24 Initial ECG Rate: 84 Initial ECG Rhythm: Normal Sinus Initial ECG Intervals: Normal Initial ECG Impression: Normal Comment Normal sinus rhythm without clinically relevant ST changes. Departure Impression Primary Impression: Acute tension headache Qualified Codes: G44.209 - Tension-type headache, unspecified, not intractable Additional Impressions: Hypertension Qualified Codes: I10 - Essential (primary) hypertension Asymptomatic microscopic hematuria Disposition: HOME, SELF-CARE Condition: Stable Departure-Patient Inst. Decision time for Depature: 16:57 Referrals: ALOK NAM MD (PCP/Family) Primary Care Physician Patient Instructions: High Blood Pressure ED, Blood in Urine (Hematuria), Adult ED Add. Discharge Instructions: Make a follow-up appointment in [address] Nam to repeat a urinalysis and see if your microscopic amount of blood in the urine has gone away. Return to the ER promptly if you are having any neurologic symptoms such as w eakness, numbness, facial droop, slurring speech, confusion, chest pain, fever, intractable vomiting etc. Tylenol, Motrin and rest. All discharge instructions reviewed with patient and/or family. Voiced understanding. Copy Copies To 1: ALOK NAM MD, TITUS J Apr 30, 2022 16:01
[2022-04-30 16:06] LABS: BILIRUBIN,URINE NEGATIVE (NEGATIVE); CLARITY,URINE CLEAR; COLOR,URINE YELLOW; GLUCOSE, URINE (UA) NEGATIVE (NEGATIVE); KETONES,URINE 1+ (NEGATIVE); LEUKOCYTE ESTERASE ,URINE NEGATIVE (NEGATIVE); NITRITE,URINE NEGATIVE (NEGATIVE); PROTEIN,URINE NEGATIVE (NEGATIVE)
[2022-04-30 16:10] LABS: ALBUMIN 4.2 GM/DL (3.2-4.5); POTASSIUM 3.8 MMOL/L (3.6-5.0)
[2022-04-30 16:11] LABS: CALCIUM 9.1 MG/DL (8.5-10.1)
[2022-04-30 16:13] LABS: BACTERIA,URINE LARGE /HPF
[2022-04-30 16:13] LABS: TOTAL PROTEIN 7.5 GM/DL (6.4-8.2)
[2022-04-30 16:14] LABS: BILIRUBIN,TOTAL 0.6 MG/DL (0.1-1.0)
[2022-04-30] MEDS ORDERED: KETOROLAC 30 MG/ML VIAL IVP ONE (16:15)
[2022-04-30 16:16] LABS: CREATININE SERUM 0.73 MG/DL (0.60-1.30)
[2022-04-30 17:39] VITALS: BP 125/86
== END 2022-04-30 17:39 | disposition home or self-care (01) ==
LOC: EDUNIT# 15:13 → ER 15:15
DX: I10 Essential (primary) hypertension (principal); G44.209 Tension-type headache, unspecified, not intractable; R31.21 Asymptomatic microscopic hematuria; E78.5 Hyperlipidemia, unspecified; F17.290 Nicotine dependence, other tobacco product, uncomplicated; Z86.69 Personal history of other diseases of the nervous system and sense organs; Z98.61 Coronary angioplasty status; Z28.310 Unvaccinated for COVID-19; Z79.899 Other long term (current) drug therapy
CPT/HCPCS: 36415; 80053; 81000; 84484; 84703; 85025; 86141; 87088; 93005

== ENCOUNTER → 2022-05-16 | Outpatient (CLI) | payer OTHER ==
--- NOTE | 2022-05-16 12:28 | Diagnostic Imaging Report ---
PROCEDURE: US Renal Bilateral. TECHNIQUE: Multiple real-time grayscale images were obtained over the kidneys in various projections bilaterally. INDICATION: Hematuria. FINDINGS: Right kidney measures 10.8 x 5.0 x 5.4 cm and the left kidney measures 10.9 x 5.1 x 5.4 cm. Cortical thickness and echogenicity is normal bilaterally. No calculi are seen. There is no hydronephrosis. Bladder demonstrates bilateral ureteral jets. IMPRESSION: Unremarkable renal ultrasound. Dictated by: Dictated on workstation # [id number]
== END ==
LOC: RAD 11:15
PROVIDERS: ATTEND Nurse Practitioner Family
DX: R31.9 Hematuria, unspecified (principal)
CPT/HCPCS: 76770

== ENCOUNTER → 2022-06-14 | Outpatient (CLI) | payer OTHER ==
--- NOTE | 2022-06-14 11:00 | Diagnostic Imaging Report ---
PROCEDURE: CT abdomen and pelvis without contrast. TECHNIQUE: Multiple contiguous axial images were obtained through the abdomen and pelvis without the use of intravenous contrast. Auto Exposure Controls were utilized during the CT exam to meet ALARA standards for radiation dose reduction. INDICATION: Microhematuria. Comparison is made with prior CT from 12/20/2019. The lung bases are clear. Diffuse low-attenuation throughout the liver is again noted consistent with hepatic steatosis. No liver mass is identified. The gallbladder is surgically absent. Pancreas and spleen are unremarkable. No adrenal mass is detected. No definite renal calculi or hydronephrosis is identified. Aorta is nonaneurysmal. No ureteral or bladder calculi are identified. The small and large bowel loops are normal caliber. There are occasional diverticula present in the sigmoid colon. Uterus is surgically absent. There is a small amount of free fluid in the pelvis. No inflammatory changes are detected. Bony structures are nonacute. IMPRESSION: 1. Hepatic steatosis. 2. No evidence of urinary tract calculi or obstruction. 3. Uncomplicated diverticulosis. There is a small amount of free fluid in the pelvis. Dictated by: Dictated on workstation # [id number]
== END ==
LOC: RAD 09:56
PROVIDERS: ATTEND Urology
DX: K76.0 Fatty (change of) liver, not elsewhere classified (principal); R31.29 Other microscopic hematuria; K57.30 Diverticulosis of large intestine without perforation or abscess without bleeding
CPT/HCPCS: 36415; 74176

== ENCOUNTER → 2022-09-02 | Outpatient (CLI) | payer OTHER ==
--- NOTE | 2022-09-02 10:01 | Diagnostic Imaging Report ---
PROCEDURE: MR imaging cervical spine without contrast. TECHNIQUE: Multiplanar, multisequence MR imaging of the cervical spine was performed without contrast. INDICATION: Cervicalgia. EXAMINATION:: Cervical spine MRI without contrast 09/02/2022. FINDINGS: There is normal height and alignment of the vertebral bodies. The visualized cord demonstrates normal signal intensity. The cervical medullary junction unremarkable. C2-C3: Unremarkable C3-C4: Unremarkable C4-C5: There is disc desiccation with a left paracentral disc protrusion. There is bilateral facet hypertrophy. There is no significant central stenosis: There is moderate narrowing of the left neural foramen. C5-C6: There is disc desiccation with a mild broad-based spur disc complex. There is bilateral facet hypertrophy. There is a moderate left neural foraminal narrowing with no significant narrowing on the right. No central stenosis. C6-C7: There is disc desiccation with a mild broad-based spur disc complex. There is bilateral facet hypertrophy. There is moderate right and mild left neural foraminal stenosis with mild central narrowing. C7-T1: Unremarkable Prevertebral soft tissues unremarkable. IMPRESSION: 1. Multilevel degenerative findings as detailed above most pronounced at C6-C7 where there is a moderate right and mild left neural foraminal stenosis with mild central narrowing. No evidence for cord compression at any level. Dictated by: Dictated on workstation # [id number]
--- NOTE | 2022-09-02 16:27 | Diagnostic Imaging Report ---
MRI THORACIC SPINE W/O CON INDICATION: Chronic back pain. COMPARISON: Cervical spine MRI performed concurrently. TECHNIQUE: Multiplanar, multisequence MR imaging of the thoracic spine without contrast. FINDINGS: Normal alignment of the thoracic spine. There is no fracture or concerning marrow-replacing process. Thoracic cord is normal in size and signal. There is no extradural fluid collection. Distal thoracic cord is normal in appearance. Paravertebral musculature is unremarkable. No spinal canal or neuroforaminal stenosis in the thoracic spine. IMPRESSION: 1. No spinal canal stenosis or thoracic cord impingement. 2. No fracture. Dictated by: Dictated on workstation # [id number]
== END ==
LOC: RAD 08-13 08:00
PROVIDERS: ATTEND Nurse Practitioner Family
DX: M47.22 Other spondylosis with radiculopathy, cervical region (principal); M50.121 Cervical disc disorder at C4-C5 level with radiculopathy; M48.02 Spinal stenosis, cervical region; M54.50 Low back pain, unspecified
CPT/HCPCS: 72141; 72146

== ENCOUNTER → 2022-12-09 | Outpatient (CLI) | payer OTHER ==
[~2022-12-09] MED LIST changes: +HOLD METFORMIN - RECEIVED CONTRAST 20 ML VIAL IV SCH; +IOHEXOL 350 MG/ML 100 ML (OMNIPAQUE 350) VIAL IV ONE; +NS 100 ML (IVPB) BAG IV ONE; +ONDA4TAB11 SL; +OXYC1TAB87 PO
--- NOTE | 2022-12-09 13:53 | Diagnostic Imaging Report ---
PROCEDURE: CT abdomen and pelvis with contrast. TECHNIQUE: Multiple contiguous axial images were obtained through the abdomen and pelvis after administration of intravenous contrast. Auto Exposure Controls were utilized during the CT exam to meet ALARA standards for radiation dose reduction. All CT scans use one or more of the following dose optimizing techniques: automated exposure control, MA and/or KvP adjustment based on patient size and exam type or iterative reconstruction. DATE: December 09, 2022. COMPARISON: CT abdomen/pelvis June 14, 2022. INDICATION: 47-year-old female, abdominal pain. Concern for diverticulitis. FINDINGS: There are limitations for evaluation of the abdominal organs, neoplastic processes, abscess, and limited evaluation of the vasculature relating to the lack of intravenous contrast. The visualized portions of the lung bases are clear. The heart is not enlarged. There is no pericardial effusion. There is diffuse fatty infiltration of the liver. The liver is unremarkable in size and contour. There is no identified liver lesion. The main, right, and left portal veins are patent. The gallbladder is surgically absent. There is no intrahepatic or extrahepatic bile duct dilation. The main pancreatic duct is not abnormally dilated. Unremarkable appearance of the pancreatic parenchyma. The spleen is normal in size. The adrenal glands are unremarkable. Unremarkable appearance of the renal parenchyma. The urinary collecting systems are not distended. There is no identified renal or ureteral stone. The urinary bladder is underdistended but grossly unremarkable in appearance. The uterus is not seen and may be surgically absent. There is mild diverticulosis without evidence of acute diverticulitis. The appendix is unremarkable. There is no free intraperitoneal air. There is no drainable fluid collection. There is a low-attenuation mass in the right adnexa on axial image 162 measuring 3.7 x 2.3 cm in size. This is new since June 14, 2022. There is a low-attenuation mesenteric oval lesion measuring 1.3 x 1.2 cm in size on axial image 140. This has decreased in size since June 05, 2018 previously measuring up to approximately 1.6 cm in size. This is unchanged in size since the most recent comparison CT. There is no identified abnormally enlarged lymph node in the abdomen or pelvis which meets CT size criteria for adenopathy. There are degenerative changes of the spine. There is no identified acute bony abnormality. IMPRESSION: 1. No identified acute abnormality in the abdomen or pelvis. 2. Low-attenuation right adnexal mass which is new since 2021 and is nonspecific. This measures 3.7 x 2.3 cm in size. Dedicated pelvic ultrasound may be of benefit for further assessment. 3. Low-attenuation mesenteric mass in the left iliopsoas has decreased in size since 2018, most consistent with benign etiology. 4. Diffuse fatty infiltration of the liver. 5. Mild diverticulosis without evidence of acute diverticulitis. Dictated by: Dictated on workstation # [id number]
== END ==
LOC: RAD 12:17
PROVIDERS: ATTEND Nurse Practitioner Family
DX: K76.0 Fatty (change of) liver, not elsewhere classified (principal); K57.90 Diverticulosis of intestine, part unspecified, without perforation or abscess without bleeding; M62.89 Other specified disorders of muscle
CPT/HCPCS: 74177

== ENCOUNTER 2022-12-10 18:12 | Emergency (ER) | payer OTHER ==
[~2022-12-10 18:12] MED LIST changes: -HOLD METFORMIN - RECEIVED CONTRAST 20 ML VIAL IV SCH; -IOHEXOL 350 MG/ML 100 ML (OMNIPAQUE 350) VIAL IV ONE; -NS 100 ML (IVPB) BAG IV ONE; -ONDA4TAB11 SL; -OXYC1TAB87 PO
[2022-12-10 18:44] LABS: BASOPHILS # (AUTO) 0.1 10^3/uL (0.0-0.1); BASOPHILS % (AUTO) 1 % (0-10); EOSINOPHILS # (AUTO) 0.1 10^3/uL (0.0-0.3); EOSINOPHILS % (AUTO) 1 % (0-10); HEMATOCRIT 43 % (35-52); HEMOGLOBIN 15.4 g/dL (11.5-16.0); LYMPHOCYTES # (AUTO) 3.1 10^3/uL (1.0-4.0); LYMPHOCYTES % (AUTO) 26 % (12-44); MEAN CORPUSCULAR HEMOGLOBIN 29 pg (25-34); MEAN CORPUSCULAR HGB CONC 36 g/dL (32-36); MEAN CORPUSCULAR VOLUME 81 fL (80-99); MEAN PLATELET VOLUME 9.7 fL (9.0-12.2); MONOCYTES # (AUTO) 1.2 10^3/uL (0.0-1.0); MONOCYTES % (AUTO) 10 % (0-12); NEUTROPHILS # (AUTO) 7.3 10^3/uL (1.8-7.8); NEUTROPHILS % (AUTO) 62 % (42-75); PLATELET COUNT 382 10^3/uL (130-400); WHITE BLOOD COUNT 11.8 10^3/uL (4.3-11.0)
[2022-12-10] MEDS ORDERED: ANTACID SUSP 30 ML UDC (MYLANTA) PO ONE (18:45)
[2022-12-10] MEDS ORDERED: fentaNYL INJ 100 MCG/2 ML AMP IVP ONE (18:45)
[2022-12-10] MEDS ORDERED: LIDOCAINE 2% VISCOUS 15 ML UDC PO ONE (18:45)
[2022-12-10] MEDS ORDERED: ONDANSETRON 4 MG/2 ML (SDV) Z0FRAN IVP ONE ×3 (18:45→22:00)
[2022-12-10] MEDS ORDERED: PANTOPRAZOLE 40 MG (PROTONIX) VIAL IV ONE (18:45)
[2022-12-10 18:57] LABS: ALBUMIN 4.6 GM/DL (3.2-4.5); CHLORIDE 103 MMOL/L (98-107); POTASSIUM 2.7 MMOL/L (3.6-5.0); SODIUM 139 MMOL/L (135-145)
[2022-12-10 18:58] LABS: CALCIUM 9.1 MG/DL (8.5-10.1)
[2022-12-10 18:59] LABS: GLUCOSE 109 MG/DL (70-105); TOTAL PROTEIN 8.3 GM/DL (6.4-8.2)
[2022-12-10 19:00] LABS: CARBON DIOXIDE 23 MMOL/L (21-32)
[2022-12-10 19:01] LABS: BILIRUBIN,TOTAL 0.7 MG/DL (0.1-1.0)
[2022-12-10 19:03] LABS: ALKALINE PHOSPHATASE 83 U/L (40-136); CREATININE SERUM 1.01 MG/DL (0.60-1.30); GFR ESTIMATED 68
[2022-12-10 19:04] LABS: BUN/CREATININE RATIO 16
[2022-12-10 19:06] LABS: ALANINE AMINOTRANSFERASE 49 U/L (0-55)
--- NOTE | 2022-12-10 19:13 | ED Abdominal Pain ---
General Chief Complaint: Abdominal/GI Problems Stated Complaint: SEVERE ABDOMINAL PAIN Nursing Triage Note: PT AMB TO FT WITH C/O SEVERE ABD PAIN THAT STARTED BACK UP TODAY AFTER IT STARTING FRIDAY. PT SAW PCP FRIDAY AND GOT A CT AND BLOOD WORK. PT STATES CT SHOWED OVARIAN CYST Source of Information: Patient, Old Records Exam Limitations: No Limitations History of Present Illness Date Seen by Provider: Dec 10, 2022 Time Seen by Provider: 18:30 Initial Comments This 47-year-old woman presents to the emergency room with complaints of severe epigastric and left upper quadrant pain that started 3 days ago. Pain has been about 3/10 but has escalated to 10/10 over the past hour. She has had associated vomiting. She had a CT of the abdomen and pelvis performed yesterday which did not demonstrate any upper abdominal abnormalities but did show a low- density mass in the adnexa. She reports fever of 101.42 days ago, but no fever since. She states labs were performed in the clinic this morning and she was notified that WBC was elevated. She was started on Cipro because of the leukocytosis. She denies any urinary or vaginal symptoms. She has had some watery diarrhea. She does give a history of esophageal strictures requiring dilatation as well as ulcers. She is status post cholecystectomy and hysterectomy with USO. She is in distress on arrival and unable to lay down. Allergies and Home Medications Allergies Coded Allergies: clarithromycin (Verified Allergy, Unknown, HIVES, 01/17/16) Patient Home Medication List Home Medication List Reviewed: Yes Baclofen (Baclofen) 10 Mg Tablet, 10 MG PO PCHS, (Reported) Entered as Reported by: JABIER TOMLIN on 07/24/21 1430 Hyoscyamine Sulfate (Levsin-Sl) 0.125 Mg Tab.subl, 1-2 TAB SL Q4H PRN for CRAMPS Prescribed by: DENA WATT on 12/10/22 2328 Ibuprofen (Ibuprofen) 200 Mg Tablet, 800 MG PO BID, (Reported) Entered as Reported by: JABIER TOMLIN on 07/24/21 1430 Lisinopril (Lisinopril) 10 Mg Tablet, 10 MG PO DAILY, (Reported) Entered as Reported by: JABIER TOMLIN on 07/24/21 1430 Metoprolol Succinate (Toprol Xl) 100 Mg Tab.er.24h, 100 MG PO HS, (Reported) Entered as Reported by: JABIER TOMLIN on 07/24/21 1430 Ondansetron (Ondansetron Odt) 4 Mg Tab.rapdis, 4 MG SL Q4H PRN for NAUSEA/VOMITING Prescribed by: DENA WATT on 12/10/22 2328 Oxycodone HCl/Acetaminophen (Percocet 5-325 mg Tablet) 1 Each Tablet, 1 TAB PO Q4H PRN for PAIN BREAKTROUGH Prescribed by: DENA WATT on 12/10/22 2330 Pantoprazole Sodium (Protonix) 40 Mg Tablet.dr, 80 MG PO BID, (Reported) Entered as Reported by: JABIER TOMLIN on 07/24/21 1430 Review of Systems Review of Systems Constitutional: see HPI EENTM: No Symptoms Reported Respiratory: No Symptoms Reported Cardiovascular: No Symptoms Reported Gastrointestinal: See HPI Genitourinary: No Symptoms Reported Musculoskeletal: no symptoms reported Skin: see HPI Psychiatric/Neurological: No Symptoms Reported Endocrine: No Symptoms Reported Hematologic/Lymphatic: No Symptoms Reported Past Aunmiyi-Kjxexw-Zctzbz Hx Patient Social History Tobacco Use?: No Use of E-Cig and/or Vaping dev: Yes Substance use?: No Alcohol Use?: Yes Alcohol Frequency: Rarely Pt feels they are or have been: No Immunizations Up To Date Tetanus Booster (TDap): More than 5yrs Influenza Vaccine Up-to-Date: No; Not Current First/Initial COVID19 Vaccinat: NO Second COVID19 Vaccination Patrick: NO Third COVID19 Vaccination Date: NO Seasonal Allergies Seasonal Allergies: No Past Medical History Surgery/Hospitalization HX: HYST Surgeries: Yes (BILAT KNEE SCOPES; EGD 12/17/19; HYST/OVARIES INTACT; R SHOULDER) Abdominal (EGD with esophageal dilatation), Adenoidectomy, Hysterectomy (With USO), Orthopedic, Tonsillectomy Respiratory: Yes (+ TB SKIN TEST--S/P INH TREATMENT) Currently Using CPAP: No Currently Using BIPAP: No Cardiac: Yes (BRIEF WIDE COMPLEX TACHYCARDIA ON HOLTER--HAD NORMAL CARDIAC CATH 05/2012) Hypertension Neurological: Yes Headaches /Migraines Reproductive Disorders: Yes Female Reproductive Disorders: Menstrual Problems 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 Sexually Transmitted Disease: No HIV/AIDS: No Genitourinary: No Gastrointestinal: Yes (DYSPHAGIA; CHRONIC ABDOMINAL PAIN/GI ISSUES esophageal strictures) Gastroesophageal Reflux, Mooney's Esophagus, Esophagitis, Hiatal Hernia, Ulcer Musculoskeletal: Yes (RIGHT SHOULDER SURGERY/CHRONIC BURSITIS; BILATERAL KNEE SCOPES) Arthritis, Scoliosis, Chronic Back Pain Endocrine: No HEENT: Yes (WEARS GLASSES) Dysphagia Loss of Vision: Bilateral Hearing Impairment: Denies Cancer: No Psychosocial: No Integumentary: No Blood Disorders: No Adverse Reaction/Blood Tranf: No (N/A) Family Medical History Patient reports no known family medical history. Cancer PSH: -RIGHT SHOULDER-SCOPE WITH ACROMIOPLASTY AND RESECTION OF DISTAL RIGHT CLAVICLE -BILATERAL KNEE SCOPES -HYST/OVARIES INTACT -CARDIAC CATH 05/2012--NORMAL -MULTIPLE EGD'S /COLONOSCOPIES Physical Exam Vital Signs Vital Signs - First Documented 12/10/22 12/10/22 18:23 23:40 Temp 36.8 Pulse 73 Resp 18 B/P (MAP) 147/85 (105) Pulse Ox 97 O2 Delivery Room Air Capillary Refill : Height/Weight/BMI Height: 5'6.00" Weight: 196lbs. 0.0oz. [id number]; 34.00 BMI Method:Stated General Appearance: WD/WN, moderate distress HEENT: normal ENT inspection Neck: normal inspection Respiratory: lungs clear, normal breath sounds, no respiratory distress Cardiovascular: regular rate, rhythm, no edema, no murmur Gastrointestinal: soft; No distended; tenderness (Epigastrium and left upper quadrant) Extremities: normal inspection, no pedal edema Neurologic/Psychiatric: alert, normal mood/affect, oriented x 3 Skin: normal color, warm/dry Progress/Results/Core Measures Results/Orders Lab Results Laboratory Tests Test 12/10/22 18:33 Range/Units White Blood Count 11.8 H 4.3-11.0 10^3/uL Red Blood Count 5.33 H 3.80-5.11 10^6/uL Hemoglobin 15.4 11.5-16.0 g/dL Hematocrit 43 35-52 % Mean Corpuscular Volume 81 80-99 fL Mean Corpuscular Hemoglobin 29 25-34 pg Mean Corpuscular Hemoglobin Concent 36 32-36 g/dL Red Cell Distribution Width 12.9 10.0-14.5 % Platelet Count 382 130-400 10^3/uL Mean Platelet Volume 9.7 9.0-12.2 fL Immature Granulocyte % (Auto) 0 % Neutrophils (%) (Auto) 62 42-75 % Lymphocytes (%) (Auto) 26 12-44 % Monocytes (%) (Auto) 10 0-12 % Eosinophils (%) (Auto) 1 0-10 % Basophils (%) (Auto) 1 0-10 % Neutrophils # (Auto) 7.3 1.8-7.8 10^3/uL Lymphocytes # (Auto) 3.1 1.0-4.0 10^3/uL Monocytes # (Auto) 1.2 H 0.0-1.0 10^3/uL Eosinophils # (Auto) 0.1 0.0-0.3 10^3/uL Basophils # (Auto) 0.1 0.0-0.1 10^3/uL Immature Granulocyte # (Auto) 0.1 0.0-0.1 10^3/uL Sodium Level 139 135-145 MMOL/L Potassium Level 2.7 L 3.6-5.0 MMOL/L Chloride Level 103 98-107 MMOL/L Carbon Dioxide Level 23 21-32 MMOL/L Anion Gap 13 5-14 MMOL/L Blood Urea Nitrogen 16 7-18 MG/DL Creatinine 1.01 0.60-1.30 MG/DL Estimat Glomerular Filtration Rate 68 BUN/Creatinine Ratio 16 Glucose Level 109 H 70-105 MG/DL Calcium Level 9.1 8.5-10.1 MG/DL Corrected Calcium 8.5-10.1 MG/DL Magnesium Level 2.0 1.6-2.4 MG/DL Total Bilirubin 0.7 0.1-1.0 MG/DL Aspartate Amino Transf (AST/SGOT) 38 H 5-34 U/L Alanine Aminotransferase (ALT/SGPT) 49 0-55 U/L Alkaline Phosphatase 83 40-136 U/L C-Reactive Protein High Sensitivity 0.35 0.00-0.50 MG/DL Total Protein 8.3 H 6.4-8.2 GM/DL Albumin 4.6 H 3.2-4.5 GM/DL Lipase 59 8-78 U/L My Orders Orders - DENA COLEMAN MD Ed Iv/Invasive Line Start (12/10/22 18:32) Cbc With Automated Diff (12/10/22 18:32) Comprehensive Metabolic Panel (12/10/22 18:32) Hs C Reactive Protein (12/10/22 18:32) Fentanyl Inj (Sublimaze Injection) (12/10/22 18:45) Lipase (12/10/22 18:43) Ondansetron Injection (Zofran Injectio (12/10/22 18:45) Lidocaine 2% Viscous 15 Ml (Xylocaine Vi (12/10/22 18:45) Antacid Suspension (Mylanta Suspension (12/10/22 18:45) Pantoprazole Injection (Protonix Injecti (12/10/22 18:45) Potassium Cl 10meq/50ml Ivpb (Kcl 10 Meq (12/10/22 19:15) Potassium Cl 10meq/50ml Ivpb (Kcl 10 Meq (12/10/22 19:15) Ns Iv 1000 Ml (Sodium Chloride 0.9%) (12/10/22 19:15) Morphine Injection (Morphine Injection (12/10/22 19:23) Hyoscyamine Sl Tablet (Levsin Sl Tablet) (12/10/22 20:15) Magnesium (12/10/22 20:37) Morphine Injection (Morphine Injection (12/10/22 21:52) Ondansetron Injection (Zofran Injectio (12/10/22 22:00) Potassium Chloride (Tablet) (Klor Con Ta (12/10/22 22:00) Ekg Tracing (12/10/22 22:00) Potassium Chloride (Tablet) (Klor Con Ta (12/10/22 22:30) Rx-Hyoscyamine Tab (Rx-Levsin Sl) (12/10/22 23:19) Rx-Ondansetron Po (Rx-Zofran Po) (12/10/22 23:19) Rx-Oxycodone/Apap 5-325 Mg (Rx-Percocet (12/10/22 23:30) Medications Given in ED Current Medications Medications Dose Ordered Sig/Yasmin Route Start Time Stop Time Status Last Admin Dose Admin Al Hydrox/Mg Hydrox/Simethicone 30 ml ONCE ONCE PO 12/10/22 18:45 12/10/22 18:46 DC 12/10/22 18:52 30 ML Fentanyl Citrate 50 mcg ONCE ONCE IVP 12/10/22 18:45 12/10/22 18:46 DC 12/10/22 18:37 50 MCG Hyoscyamine Sulfate 0.25 mg ONCE ONCE SL 12/10/22 20:15 12/10/22 20:16 DC 12/10/22 20:14 0.25 MG Lidocaine HCl 15 ml ONCE ONCE PO 12/10/22 18:45 12/10/22 18:46 DC 12/10/22 18:52 15 ML Ondansetron HCl 4 mg ONCE ONCE IVP 12/10/22 18:45 12/10/22 18:46 DC 12/10/22 18:50 4 MG Ondansetron HCl 4 mg ONCE ONCE IVP 12/10/22 22:00 12/10/22 22:01 DC 12/10/22 22:05 4 MG Oxycodone/ Acetaminophen 1 ea Q4H PRN PO 12/10/22 23:30 12/11/22 05:04 DC 12/10/22 23:35 1 EA Pantoprazole 40 mg ONCE ONCE IV 12/10/22 18:45 12/10/22 18:46 DC 12/10/22 18:51 40 MG Potassium Chloride 10 meq ONCE ONCE PO 12/10/22 22:00 12/10/22 22:01 DC 12/10/22 22:05 10 MEQ Potassium Chloride 30 meq ONCE ONCE PO 12/10/22 22:30 12/10/22 22:31 DC 12/10/22 22:48 30 MEQ Potassium Chloride 50 ml @ 50 mls/hr ONCE ONCE IV 12/10/22 19:15 12/10/22 20:14 DC 12/10/22 19:39 50 MLS/HR Potassium Chloride 50 ml @ 50 mls/hr ONCE ONCE IV 12/10/22 19:15 12/10/22 20:14 DC 12/10/22 20:57 50 MLS/HR Sodium Chloride 1,000 ml @ 250 mls/hr Q4H ONCE IV 12/10/22 19:15 12/10/22 23:14 DC 12/10/22 19:39 250 MLS/HR Vital Signs/I&O 12/10/22 12/10/22 18:23 23:40 Temp 36.8 36.7 Pulse 73 81 Resp 18 16 B/P (MAP) 147/85 (105) 143/77 Pulse Ox 97 O2 Delivery Room Air 12/11/22 00:00 Intake Total 1100 ml Balance 1100 ml Blood Pressure Mean: 105 Progress Progress Note #1: Time: 19:55 Progress Note Patient was interviewed and examined. CT report from Friday was reviewed. Patient received fentanyl for initial pain management. This did reduce her pain some. Once it was noted that her pain is primarily epigastric and she had history of gastroesophageal pathology previously, GI cocktail was ordered along with Zofran 4 mg. This further reduced her pain. However, she is now experie ncing rebound pain she received morphine 5 mg IV but states her pain is still escalating. Hypokalemia was noted on labs with potassium of 2.7. The remainder of the CBC, CMP, CRP, and lipase evaluation was relatively unremarkable. I will be checking a magnesium level as well and reassessing her to determine best way of further pain management. Protonix was given for GI protection. Progress Note #2: Time: 20:04 Progress Note I discussed current pain with patient. She reported a sensation of bowel urgency and went to the bathroom thinking she would have diarrhea. She did not produce any. I suspect she may be having some GI cramping. We will trial Levsin before giving any further opioids for pain control. Progress Note #3: Time: 21:18 Progress Note Patient did have some relief from the Levsin. Progress Note #4: Time: 21:58 Progress Note Dori's pain has overall improved but she is still having notable residual pain. She does accept another dose of morphine. Potassium infusion will be c omplete soon. After that we will trial oral potassium replacement with just 1 tablet (10 M EQ) and an additional dose of Zofran 4 mg IV. If she tolerates that well, we will add an additional 3 tablets (30 mEq). Patient has expressed a strong desire to avoid admission. I will work toward discharge if she is stable and able to tolerate continued treatment as an outpatient. Progress Note #5: Time: 06:16 Progress Note Patient was able to tolerate her oral potassium. She was discharged home with take-home medications for Zofran, Levsin, and Percocet. She has an outpatient ultrasound scheduled to follow-up on the abnormal CT images. Discharge instructions were reviewed. See discharge instructions below for further discussion. Initial ECG Impression Date: Dec 10, 2022 Initial ECG Impression Time: 22:17 Initial ECG Rate: 44 Initial ECG Rhythm: S.Eugene Comment Sinus bradycardia with no ST elevation or depression. No abnormal intervals or axis deviation. Diagnostic Imaging Diagonstic Imaging: CT Plain Films/CT/US/NM/MRI: abdomen, pelvis Comments CT report from yesterday reviewed as copied below: NAME: DORI AGUILERA REC#: [id number] PT STATUS: REG CLI : 1975 PHYSICIAN: MANI HIGGINS APRN ADMIT DATE: 12/09/22/RAD Signed Date of Exam:12/09/22 CT ABDOMEN/PELVIS W PROCEDURE: CT abdomen and pelvis with contrast. TECHNIQUE: Multiple contiguous axial images were obtained through the abdomen and pelvis after administration of intravenous contrast. Auto Exposure Controls were utilized during the CT exam to meet ALARA standards for radiation dose reduction. All CT scans use one or more of the following dose optimizing techniques: automated exposure control, MA and/or KvP adjustment based on patient size and exam type or iterative reconstruction. DATE: December 09, 2022. COMPARISON: CT abdomen/pelvis June 14, 2022. INDICATION: 47-year-old female, abdominal pain. Concern for diverticulitis. FINDINGS: There are limitations for evaluation of the abdominal organs, neoplastic processes, abscess, and limited evaluation of the vasculature relating to the lack of intravenous contrast. The visualized portions of the lung bases are clear. The heart is not enlarged. There is no pericardial effusion. There is diffuse fatty infiltration of the liver. The liver is unremarkable in size and contour. There is no identified liver lesion. The main, right, and left portal veins are patent. The gallbladder is surgically absent. There is no intrahepatic or extrahepatic bile duct dilation. The main pancreatic duct is not abnormally dilated. Unremarkable appearance of the pancreatic parenchyma. The spleen is normal in size. The adrenal glands are unremarkable. Unremarkable appearance of the renal parenchyma. The urinary collecting systems are not distended. There is no identified renal or ureteral stone. The urinary bladder is underdistended but grossly unremarkable in appearance. The uterus is not seen and may be surgically absent. There is mild diverticulosis without evidence of acute diverticulitis. The appendix is unremarkable. There is no free intraperitoneal air. There is no drainable fluid collection. There is a low-attenuation mass in the right adnexa on axial image 162 measuring 3.7 x 2.3 cm in size. This is new since June 14, 2022. There is a low-attenuation mesenteric oval lesion measuring 1.3 x 1.2 cm in size on axial image 140. This has decreased in size since June 05, 2018 previously measuring up to approximately 1.6 cm in size. This is unchanged in size since the most recent comparison CT. There is no identified abnormally enlarged lymph node in the abdomen or pelvis which meets CT size criteria for adenopathy. There are degenerative changes of the spine. There is no identified acute bony abnormality. IMPRESSION: 1. No identified acute abnormality in the abdomen or pelvis. 2. Low-attenuation right adnexal mass which is new since 2021 and is nonspecific. This measures 3.7 x 2.3 cm in size. Dedicated pelvic ultrasound may be of benefit for further assessment. 3. Low-attenuation mesenteric mass in the left iliopsoas has decreased in size since 2018, most consistent with benign etiology. 4. Diffuse fatty infiltration of the liver. 5. Mild diverticulosis without evidence of acute diverticulitis. Dictated by: Dictated on workstation # [id number] Dict: 12/09/22 1333 Trans: 12/10/22 0945 [id number] Interpreted by: GENIE ZAMARRIPA MD Electronically signed by: GENIE ZAMARRIPA MD 12/10/22 0945 Departure Impression Primary Impression: Epigastric pain Additional Impressions: Hyperkalemia Vomiting and diarrhea Disposition: 01 HOME, SELF-CARE Condition: Improved Departure-Patient Inst. Decision time for Depature: 23:20 Referrals: ALOK NAM MD (PCP/Family) Primary Care Physician Patient Instructions: Abdominal Pain, Adult ED, Hypokalemia Add. Discharge Instructions: Start with a noncarbonated clear liquid diet. Avoid acidic beverages such as citrus juices. Pedialyte or the generic equivalent is an excellent beverage for rehydration and electrolyte replacement. Sports drinks are also acceptable. After about 12 hours of a clear liquid diet, gradually advance your diet with small quantities of bland food as tolerated. Select foods high in potassium for the next few days which might include banana, potatoes, etc. Take your Prilosec (omeprazole) faithfully every day until otherwise instructed by your doctor. Continue taking even if you are not experiencing any abdominal pain or acid reflux. For added protection of your stomach and esophagus, you may add Pepcid (or generic famotidine) 20 mg twice daily. Tums may also be used for acute treatment of heartburn or pain in the upper abdomen. Use the Zofran (ondansetron) 4 mg sublingual every 4 hours as needed for nausea and vomiting. You may take your next dose after 2 AM. Use Levsin (hyoscyamine) up to 0.25 mg sublingual every 4 hours as needed for bowel or stomach cramping. You may take your next dose after midnight. Use Percocet (oxycodone/APAP) 1 tablet every 4 hours as needed for moderate to severe pain. Use Tylenol (acetaminophen) up to 1000 mg every 6 hours as needed for more mild pain. Please be aware that each Percocet tablet contains 325 mg of acetaminophen. You should follow-up with your primary care provider soon as possible. Recommend having your labs checked including electrolytes within the next 2 to 3 days. Follow-up with your primary care provider as soon as possible for further evaluation. Because of your history of hiatal hernia, Mooney's esophagus, ulcers, etc. you should pursue referral to a surgeon or extrusion former for endoscopy. To reduce symptoms of acid reflux and stomach irritation avoid the following: Eating large meals, eating close to bedtime, caffeine, carbonation, citrus fruits and juices, chocolate, mints, spicy foods, fatty/greasy foods, NSAID medications such as ibuprofen or naproxen, alcohol, tobacco, or anything else you know irritates your stomach. Sleeping with your head elevated may also be helpful. Return to care if you have worsening symptoms despite following these instructions. Also return if you develop new symptoms such as bloody stools, bloody vomit, fever, uncontrollable pain, etc. All discharge instructions reviewed with patient and/or family. Voiced understanding. Scripts Oxycodone HCl/Acetaminophen (Percocet 5-325 mg Tablet) 1 Each Tablet 1 TAB PO Q4H PRN for PAIN BREAKTROUGH MDD 6 TABS, #5 TAB Prov: DENA COLEMAN MD 12/10/22 Ondansetron (Ondansetron Odt) 4 Mg Tab.rapdis 4 MG SL Q4H PRN for NAUSEA/VOMITING, #10 TAB Prov: DENA COLEMAN MD 12/10/22 Hyoscyamine Sulfate (Levsin-Sl) 0.125 Mg Tab.subl 1-2 TAB SL Q4H PRN for CRAMPS, #10 TAB 0 Refills Prov: DENA COLEMAN MD 12/10/22 Copy Copies To 1: ALOK NAM MD, JOSHUA T MD Dec 10, 2022 19:13
[2022-12-10] MEDS ORDERED: POTASSIUM CL 10MEQ/50ML IVPB 50 ML IV ONE ×2 (19:15)
[2022-12-10] MEDS ORDERED: NS IV 1000 ML 1,000 ML IV ONE (19:15)
[2022-12-10] MEDS ORDERED: morphine INJ 10 MG/ML 1ML (SYR OR VIAL) IVP STA ×2 (19:23→21:52)
[2022-12-10] MEDS ORDERED: HYOSCYAMINE 0.125 MG (LEVSIN) TAB SL ONE (20:15)
[2022-12-10] MEDS ORDERED: KCL 10 MEQ TAB (MICRO K) PO ONE ×2 (22:00→22:30)
[2022-12-10] MEDS ORDERED: RX-HYOSCYAMINE 0.125 MG SL (LEVSIN) PPK#6 SL STA (23:19)
[2022-12-10] MEDS ORDERED: RX-ONDANSETRON 4 MG ODT (ZOFRAN) PPK #4 SL STA (23:19)
[2022-12-10] MEDS ORDERED: ONDA4TAB11 SL (23:28)
[2022-12-10] MEDS ORDERED: HYOS0.1283 SL (23:28)
[2022-12-10] MEDS ORDERED: OXYC1TAB87 PO (23:29)
[2022-12-10] MEDS ORDERED: RX-OXYCODONE/APAP 5-325 MG #4 TAB PK PO PRN (23:30)
[2022-12-10 23:40] VITALS: BP 143/77
== END 2022-12-10 23:40 | disposition home or self-care (01) ==
LOC: ER 18:12
DX: R10.13 Epigastric pain (principal); R19.7 Diarrhea, unspecified; E87.5 Hyperkalemia; D72.829 Elevated white blood cell count, unspecified; F17.290 Nicotine dependence, other tobacco product, uncomplicated; Z90.49 Acquired absence of other specified parts of digestive tract
CPT/HCPCS: 36415; 80053; 83690; 83735; 85025; 86141; 93005

== ENCOUNTER → 2022-12-12 | Outpatient (CLI) | payer OTHER ==
[~2022-12-12] MED LIST changes: +ONDA4TAB11 SL; +OXYC1TAB87 PO
--- NOTE | 2022-12-12 16:56 | Diagnostic Imaging Report ---
PROCEDURE: US Non-ob pelvis comp/trans. TECHNIQUE: Multiple realtime grayscale images were obtained of the pelvis in various projections, endovaginally. Transabdominal imaging was also performed. INDICATION: Pelvic pain. Status post hysterectomy. COMPARISON: CT abdomen and pelvis of 12/09/2022. FINDINGS: Hysterectomy. No mass at the level of the surgical bed. Within the right adnexa, there is a 4.9 x 6.6 x 2.1 cm cystic structure which is likely two separate cysts adjacent to each other. Neither of these cysts have mural nodularity or concerning imaging features. The left adnexa is imaged and has no mass or cyst present. Left ovary is not seen. IMPRESSION: Two adjacent cystic structures in the right adnexa are simple in appearance. These are of unknown etiology, but one could arise from the right ovary. Neither of these have features suspicious for neoplasm. Consider follow-up pelvic ultrasound in 6-12 weeks to assure stability. Dictated by: Dictated on workstation # [id number]
== END ==
LOC: RAD 13:40
PROVIDERS: ATTEND Nurse Practitioner Family
DX: N83.291 Other ovarian cyst, right side (principal); Z90.710 Acquired absence of both cervix and uterus
CPT/HCPCS: 76830; 76856

== ENCOUNTER 2023-02-12 06:03 | Outpatient (CLI) | payer OTHER ==
[~2023-02-12] VITALS: Ht 167.6 cm; Wt 96.8 kg
[2023-02-12] MEDS ORDERED: ESTR0.5T PO (09:28)
[2023-02-12] MEDS ORDERED: CELE200C PO (09:28)
[2023-02-12] MEDS ORDERED: LISI1TAB44 PO (09:28)
[2023-02-12] MEDS ORDERED: ATOR10TA66 PO (09:28)
== END 2023-02-12 09:39 | disposition home or self-care (01) ==
LOC: PREOP 06:03
PROVIDERS: ATTEND Surgery
DX: Z01.818 Encounter for other preprocedural examination (principal)

== ENCOUNTER 2023-02-19 12:27 | Day surgery (SDC) | payer OTHER ==
[~2023-02-19] VITALS: Ht 167 cm; Wt 96.8 kg
[~2023-02-19 12:27] MED LIST changes: +ATOR10TA66 PO; +CELE200C PO; +ESTR0.5T PO; +LISI1TAB44 PO
[2023-02-19] MEDS ORDERED: LACTATED RINGERS 1,000 ML IV STA (12:29)
[2023-02-19] MEDS ORDERED: LIDOCAINE JELLY 2% 6 ML SYRINGE MM PRN (12:30)
[2023-02-19] MEDS ORDERED: HURRICAINE EXT TUBE (BENZOCAINE) XX PRN (12:30)
--- NOTE | 2023-02-19 12:49 | Progress Note-Pre Operative ---
Pre-Operative Progress Note Date of Available H&P: Feb 19, 2023 Date H&P Reviewed: Feb 19, 2023 Time H&P Reviewed: 12:30 History & Physical: No changes noted Pre-Operative Diagnosis: dysphagia, GERD, hx blevins's LILIA MICHELLE MD Feb 19, 2023 12:49
[2023-02-19 12:50] VITALS: BP 126/80
[2023-02-19] MEDS ORDERED: OMEP40CA6 PO (12:51)
--- NOTE | 2023-02-19 12:53 | Discharge Inst-Surgical ---
D/C Lap Instructions-KIDO New, Converted, or Re-Newed RX: RX on Chart Follow Up Activity as tolerated High Fiber Diet 25g or more per day Avoid Alcohol, Caffeine, Spicy [place] and Acid foods. Drink 64 fluid oz or more of fluids per day. Symptoms to Report: Fever over 101 degree F, Nausea/Vomiting If any problems/questions: Contact your physician or go to Emergency Room LILIA MICHELLE MD Feb 19, 2023 12:53
[2023-02-19] MEDS ORDERED: ONDANSETRON 4 MG (ZOFRAN) ORAL DISSOLVE TAB PO PRN ×2 (13:00)
[2023-02-19] MEDS ORDERED: ONDANSETRON 4 MG/2 ML (SDV) Z0FRAN IVP PRN ×2 (13:00)
[2023-02-19] MEDS ORDERED: MIDAZOLAM 2 MG/2 ML (VERSED) VIAL ONE (14:15)
[2023-02-19] MEDS ORDERED: PROPOFOL INJECTION 50 ML IV ONE ×2 (14:15→14:47)
[2023-02-19] MEDS ORDERED: KETAMINE 50 MG/5 ML SYRINGE ONE (14:28)
[2023-02-19 14:45] VITALS: BP 84/44
[2023-02-19 14:50] VITALS: BP 82/44
[2023-02-19 14:55] VITALS: BP 86/51
--- NOTE | 2023-02-19 14:56 | Anesthesia-General Post-Op ---
MAC Patient Condition Mental Status/LOC: Same as Preop Cardiovascular: Satisfactory Nausea/Vomiting: Absent Respiratory: Satisfactory Pain: Controlled Complications: Absent Post Op Complications Complications None Follow Up Care/Instructions Patient Instructions None needed. Anesthesiology Discharge Order Discharge Order Patient is doing well, no complaints, stable vital signs, no apparent adverse anesthesia problems. No complications reported per nursing. SATISH ZAMORA CRNA Feb 19, 2023 14:56
[2023-02-19 15:08] VITALS: BP 86/51
--- NOTE | 2023-02-19 15:08 | Progress Note-Post Operative ---
Post-Operative Progess Note Surgeon (s)/Saddle Mechanic (s) Surgeon LILIA MICHELLE MD Saddle Mechanic: none Pre-Operative Diagnosis dysphagia, GERD, hx blevins's Post-Operative Diagnosis reflux esophagitis(grade B-C), increased lower esoph sphincter tone, small HH(2cm), moderate gastritis. Procedure & Operative Findings Date of Procedure 02/19/23 Procedure Performed/Findings EGD with bx and balloon dilatation. Anesthesia Type mac Estimated Blood Loss Estimated blood loss (mL): minimal Specimens/Packing Specimens Removed antrum, ge jxn LILIA MICHELLE MD Feb 19, 2023 15:08
[2023-02-19 15:15] VITALS: BP 95/68
--- NOTE | 2023-02-19 22:43 | OPERATIVE REPORT ---
DATE OF SERVICE: 02/19/2023 ATTENDING PRIMARY CARE PHYSICIAN: Dr. Bonilla Gordillo. PREOPERATIVE DIAGNOSES: Dysphagia, achalasia, history of Mooney's esophagus, reflux. POSTOPERATIVE DIAGNOSES: Reflux esophagitis, [place] grade B; hypertonic lower esophageal sphincter. Small hiatal hernia, 2 cm in size. Moderate gastritis, small pyloric erosions. PROCEDURE: EGD with biopsy and balloon dilatation. SURGEON: Lilia Michelle MD ANESTHESIA: Monitored anesthesia care. ESTIMATED BLOOD LOSS: Minimal. FINDINGS: Reflux esophagitis, [place] grade B; hypertonic lower esophageal sphincter. Small hiatal hernia, 2 cm in size. Moderate gastritis, small pyloric erosions. DISPOSITION: The patient tolerated the procedure well. INDICATIONS: The patient is a 47-year-old female known to us. She has had a longstanding history of dysphagia and reflux for many years. She has undergone several EGDs as well as biopsies and balloon dilatation for a hypertonic lower esophageal sphincter. She was found to have a hiatal hernia and we also had her do an esophageal manometry study, which did show hypertonicity of the lower esophageal sphincter muscles. Her last EGD and biopsy and balloon dilatation was on 12/17/2019. We had also taken her gallbladder out on 12/22/2019. She again is having recurrent issues of dysphagia and worsening reflux. She was also found to have Mooney's esophagus on previous biopsies of the GE junction. DESCRIPTION OF PROCEDURE: The patient was brought to the endoscopy suite and laid in the left lateral decubitus position. After adequate IV pain and sedative medications and monitored anesthesia care, the mouthpiece was applied. The endoscope was then placed in the mouth, visualizing the pharynx and hypopharyngeal region. Vocal cords, epiglottis and vallecula identified and appeared to be normal. The endoscope was then gently intubated in the esophageal opening and esophagus insufflated. The endoscope was then advanced through the first, second and third parts of the esophagus, at the level of the GE junction there was hypertonicity of the lower esophageal sphincter. There was a reflux esophagitis between [place] grade B and C. A biopsy was taken of the GE junction with forceps with visualization of good hemostasis. The endoscope was then advanced into the stomach and endoscope retroflexed, visualizing a small hiatal hernia approximately 2 cm in size. There was a moderate severity gastritis as well as some small pyloric erosions; however, no formal ulcerations. Biopsy was taken of the antrum to rule out H. pylori with visualization of good hemostasis. The endoscope was then advanced into the pylorus and the first and second portion of the duodenum with no distal obstructions identified. The balloon was then placed in the stomach and pulled back to the area of the stricture. The balloon was then desufflated in a graded stepwise fashion from 2, 4, then eventually 6 atmospheres of pressure or 20 mm in luminal diameter with moderate resistance and left this in place for approximately 60 seconds. The balloon was then desufflated and removed with visualization of good hemostasis as well as no mucosal tears. The endoscope was then slowly withdrawn while taking a second look and suctioning of residual air with no additional findings. The patient tolerated the procedure well. We will recommend the necessary lifestyle and dietary accommodation including small and more frequent meals, avoidance of eating at night as well as head elevation while lying supine. From our records, her last EGD for the issues of the achalasia was in 2019 and if her symptomatology for dysphagia is infrequent then we will just have her continue with balloon dilatation as necessary. However, if this becomes more frequent and more severe in nature, we would then recommend either balloon dilatation with a larger achalasia balloon versus referral to a infrastructure software engineer for botulinum toxin injection. She is on Dexilant 60 mg daily; however, it appears that she does have continued gastritis and we will also add omeprazole 40 mg daily to be taken at a different time during the day. Job ID: [id number] DocumentID: [id number] Dictated Date: 02/19/2023 15:02:06 Airline Radio Operator Date: 02/19/2023 22:41:00 Dictated By: LILIA MICHELLE MD
== END 2023-02-19 15:27 | disposition home or self-care (01) ==
LOC: ENDO 12:27
PROVIDERS: ATTEND Surgery
DX: K21.00 Gastro-esophageal reflux disease with esophagitis, without bleeding (principal); K22.2 Esophageal obstruction; K44.9 Diaphragmatic hernia without obstruction or gangrene; K29.70 Gastritis, unspecified, without bleeding; K25.9 Gastric ulcer, unspecified as acute or chronic, without hemorrhage or perforation; Z79.899 Other long term (current) drug therapy; F17.290 Nicotine dependence, other tobacco product, uncomplicated; Z87.19 Personal history of other diseases of the digestive system; Z28.310 Unvaccinated for COVID-19
CPT/HCPCS: 88305

== ENCOUNTER → 2023-07-10 | Outpatient (CLI) | payer OTHER ==
[~2023-07-10] MED LIST changes: +OMEP40CA6 PO
--- NOTE | 2023-07-10 12:23 | Diagnostic Imaging Report ---
Indication: Routine screening. Comparison is made with prior mammograms from 04/04/2022 and 12/17/2019. 2-D and 3-D bilateral screening mammography was performed with CAD. Both breasts are heterogeneously dense, limiting the sensitivity of mammography. The parenchymal pattern is stable. No mass or malignant-appearing microcalcifications are seen. Axillae are unremarkable. IMPRESSION: BI-RADS Category 1 No mammographic features suspicious for malignancy are identified. ACR BI-RADS Category 1: Negative. Result letter will be mailed to the patient. Note: At least 10% of breast cancer is not imaged by mammography. Dictated by: Dictated on workstation # [id number]
== END ==
LOC: RAD 07:31
PROVIDERS: ATTEND Internal Medicine
DX: Z12.31 Encounter for screening mammogram for malignant neoplasm of breast (principal); N95.1 Menopausal and female climacteric states; M54.2 Cervicalgia; I10 Essential (primary) hypertension
CPT/HCPCS: 77063; 77067